=== PATIENT | male | born 1940 | race Caucasian/White ===

== ENCOUNTER 2017-05-26 03:08 | Observation (INO) | payer MEDICARE ==
[2017-05-26] VITALS (9 sets, daily range): BP systolic 112–161; BP diastolic 74–100; PULSE 77–116; RESP 16–18; TEMP 95.8–98.1; O2SAT 93–98
[~2017-05-26] VITALS: Ht 190.5 cm; Wt 93.0 kg
[~2017-05-26 03:08] MED LIST: AMBI5TAB PO; AMLO5TAB96 PO; AVOD0.5C PO; FISH1000 PO; TAB-TAB PO; TAMS0.4C67 PO; VYTO10TA35 PO
[2017-05-26] MEDS ORDERED: IRBE75TA24 PO (03:28)
[2017-05-26] MEDS ORDERED: AMLO5 PO (03:28)
[2017-05-26] MEDS ORDERED: ASPI-516 PO (03:30)
[2017-05-26] MEDS ORDERED: PANT20TA2 PO (03:35)
[2017-05-26] MEDS ORDERED: SODIUM CHLOR 0.9% 1000 ML INJ 1,000 ML IV SCH (03:35)
[2017-05-26] MEDS ORDERED: PANTOPRAZOLE INJ 80 MG in SODIUM CHLORIDE 0.9% INJ 35 ML IV ONE (03:35)
[2017-05-26] MEDS ORDERED: ROSU10 PO (03:35)
[2017-05-26] MEDS ORDERED: TEST1INJ3 IM (03:37)
[2017-05-26] MEDS ORDERED: RAPA4CAP PO (03:37)
[2017-05-26] MEDS ORDERED: AMBI5TAB PO (03:38)
[2017-05-26] MEDS ORDERED: MULTTAB67 PO (03:38)
[2017-05-26] MEDS ORDERED: VITA1000 PO (03:39)
[2017-05-26] MEDS ORDERED: FISHCAP4 PO (03:39)
[2017-05-26] MEDS ORDERED: VITA100T65 PO (03:39)
[2017-05-26] MEDS ORDERED: SODIUM CHLORIDE 0.9% FLUSH 10 ML FLUSH IVF PRN (03:45)
[2017-05-26 04:21] LABS: AUTOMATED NEUTROPHIL # 3.8 TH/MM3 (1.8-7.7); BASOPHIL % 0.5 % (0.0-2.0); EOSINOPHIL # 0.1 TH/MM3 (0-0.4); EOSINOPHIL % 1.2 % (0.0-4.0); HEMATOCRIT 39.3 % (39.0-51.0); HEMO FLAGS DIFF FINAL; LYMPH % 35.3 % (9.0-44.0); LYMPHOCYTE # 2.6 TH/MM3 (1.0-4.8); MEAN CELL VOLUME 93.7 FL (80.0-100.0); MEAN CORPUSCULAR HGB CONC 33.1 % (32.0-36.0); MONO % 11.6 % (0.0-8.0); NEUT % 51.4 % (16.0-70.0); PLATELET COUNT 190 TH/MM3 (150-450); RED BLOOD COUNT 4.19 MIL/MM3 (4.50-5.90); RED CELL DISTRIBUTION WIDTH 13.7 % (11.6-17.2); WHITE BLOOD COUNT 7.4 TH/MM3 (4.0-11.0)
[2017-05-26 04:31] LABS: APTT (PATIENT) 24.6 SEC (24.3-30.1); PROTHROMBIN TIME - PATIENT 10.7 SEC (9.8-11.6)
[2017-05-26 04:38] LABS: ALKALINE PHOSPHATASE 45 U/L (45-117); TOTAL BILIRUBIN ADULT 0.2 MG/DL (0.2-1.0)
[2017-05-26] MEDS: PANTOPRAZOLE INJ 80 MG in SODIUM CHLORIDE 0.9% INJ 100 ML IV SCH ×2 (04:40→15:09)
[2017-05-26 04:46] LABS: ALT (GPT) 29 U/L (12-78); ANION GAP 9 MEQ/L (5-15); AST (GOT) 23 U/L (15-37); BICARBONATE 24.8 MEQ/L (21.0-32.0); BLOOD UREA NITROGEN 21 MG/DL (7-18); CHLORIDE 108 MEQ/L (98-107); GLOMERULAR FILTRATION RATE 42 ML/MIN (>89); POTASSIUM 4.3 MEQ/L (3.5-5.1); SODIUM (NA) 142 MEQ/L (136-145)
--- NOTE | 2017-05-26 05:04 | PD ---
HPI Chief Complaint: Bleeding Time Seen by Provider: 03:25 Travel History International Travel<30 days: Yes Contact w/Intl Traveler<30days: Yes Name of Country Traveled to: [facility] Traveled to known affect area: Yes History of Present Illness HPI Patient is a 77-year-old male who comes in due to bleeding from his rectum. He says it started about 6 PM in the afternoon when he had a loose bowel movement. He says it was mostly bright red blood. He says he has had several more episodes of this since then. He says he feels a little lightheaded. He denies any abdominal pain. He denies nausea or vomiting. He says this did happen about 3 years ago while he was in [place]. He had a colonoscopy when he returned and he says this was normal. He denies chest pain or shortness of breath. He denies palpitations. 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17) Social History Alcohol Use: No Tobacco Use: No Substance Use: No Allergies-Medications (Allergen,Severity, Reaction): Coded Allergies: Sulfa (Sulfonamide Antibiotics) (Unverified Allergy, Unknown, 05/26/17) Reported Meds & Prescriptions Reported Meds & Active Scripts Active Reported Fish Oil + D3 (Fish Oil-Cholecalciferol) 1,200-1,000 Mg-Unit Cap 1 Cap PO DAILY Vitamin E 100 Unit Tab 100 Units PO DAILY Vitamin D-1000 (Cholecalciferol) 1,000 Unit Tab 1,000 Units PO DAILY Multiple Vitamin 1 Tab 1 Tab PO DAILY Ambien (Zolpidem Tartrate) 5 Mg Tab 5 Mg PO HS PRN Rapaflo (Silodosin) 4 Mg Cap 4 Mg PO DAILY Crestor (Rosuvastatin Calcium) 10 Mg Tab 10 Mg PO DAILY Pantoprazole (Pantoprazole Sodium) 20 Mg Tab 20 Mg PO DAILY Aspirin 81 Mg Chew 81 Mg PO DAILY Norvasc (Amlodipine Besylate) 5 Mg Tab 5 Mg PO DAILY Avapro (Irbesartan) 75 Mg Tab 75 Mg PO DAILY Review of Systems Except as stated in HPI: all other systems reviewed are Neg General / Constitutional: No: Fever, Chills HENT: Positive: Lightheadedness, No: Headaches Cardiovascular: No: Chest Pain or Discomfort, Palpitations Respiratory: No: Shortness of Breath Gastrointestinal: Positive: Diarrhea, No: Nausea, Vomiting, Abdominal Pain Genitourinary: No: Dysuria Musculoskeletal: No: Myalgias, Edema Skin: No Rash, No Change in Pigmentation Neurologic: Positive: Dizziness, No: Weakness Physical Exam Narrative GENERAL: Awake and alert, in no acute distress. SKIN: Focused skin assessment warm/dry. HEAD: Atraumatic. Normocephalic. EYES: Pupils equal and round. No scleral icterus. No conjunctival pallor. ENT: Mucous membranes pink and moist. NECK: Trachea midline. No JVD. CARDIOVASCULAR: Regular rate and rhythm. No murmur appreciated. RESPIRATORY: No accessory muscle use. Clear to auscultation. Breath sounds equal bilaterally. GASTROINTESTINAL: Abdomen soft, non-tender, nondistended. RECTAL: Exam performed in the presence of the nurse. There are no masses or lesions. BRBPR MUSCULOSKELETAL: No obvious deformities. No clubbing. No cyanosis. No edema. NEUROLOGICAL: Awake and alert. No obvious cranial nerve deficits. Motor grossly within normal limits. Normal speech. PSYCHIATRIC: Appropriate mood and affect; insight and judgment normal. Data Data Last Documented VS Vital Signs Date Time Temp Pulse Resp B/P (MAP) Pulse Ox O2 Delivery O2 Flow Rate FiO2 05/26/17 04:57 98 Room Air 05/26/17 04:57 81 18 05/26/17 03:11 97.9 Orders Orders Complete Blood Count With Diff (05/26/17 03:35) Comprehensive Metabolic Panel (05/26/17 03:35) Prothrombin Time / Inr (Pt) (05/26/17 03:35) Act Partial Throm Time (Ptt) (05/26/17 03:35) Type And Screen (05/26/17 03:35) Ecg Monitoring (05/26/17 03:35) Iv Access Insert/Monitor (05/26/17 03:35) Oximetry (05/26/17 03:35) Sodium Chlor 0.9% 1000 Ml Inj (Ns 1000 M (05/26/17 03:35) Sodium Chloride 0.9% Flush (Ns Flush) (05/26/17 03:45) Sodium Chloride 0.9... W/Pantoprazole In (05/26/17 03:35) Sodium Chloride 0.9... W/Pantoprazole In (05/26/17 03:35) C Diff Toxin Pcr (05/26/17 03:35) Admit Order (Ed Use Only) (05/26/17 ) Labs Laboratory Tests Test 05/26/17 04:05 White Blood Count 7.4 TH/MM3 Red Blood Count 4.19 MIL/MM3 Hemoglobin 13.0 GM/DL Hematocrit 39.3 % Mean Corpuscular Volume 93.7 FL Mean Corpuscular Hemoglobin 31.0 PG Mean Corpuscular Hemoglobin Concent 33.1 % Red Cell Distribution Width 13.7 % Platelet Count 190 TH/MM3 Mean Platelet Volume 9.0 FL Neutrophils (%) (Auto) 51.4 % Lymphocytes (%) (Auto) 35.3 % Monocytes (%) (Auto) 11.6 % Eosinophils (%) (Auto) 1.2 % Basophils (%) (Auto) 0.5 % Neutrophils # (Auto) 3.8 TH/MM3 Lymphocytes # (Auto) 2.6 TH/MM3 Monocytes # (Auto) 0.9 TH/MM3 Eosinophils # (Auto) 0.1 TH/MM3 Basophils # (Auto) 0.0 TH/MM3 CBC Comment DIFF FINAL Differential Comment Prothrombin Time 10.7 SEC Prothromb Time International Ratio 1.0 RATIO Activated Partial Thromboplast Time 24.6 SEC Blood Urea Nitrogen 21 MG/DL Creatinine 1.59 MG/DL Random Glucose 117 MG/DL Total Protein 6.3 GM/DL Albumin 3.3 GM/DL Calcium Level 8.4 MG/DL Alkaline Phosphatase 45 U/L Aspartate Amino Transf (AST/SGOT) 23 U/L Alanine Aminotransferase (ALT/SGPT) 29 U/L Total Bilirubin 0.2 MG/DL Sodium Level 142 MEQ/L Potassium Level 4.3 MEQ/L Chloride Level 108 MEQ/L Carbon Dioxide Level 24.8 MEQ/L Anion Gap 9 MEQ/L Estimat Glomerular Filtration Rate 42 ML/MIN MDM Medical Decision Making Medical Screen Exam Complete: Yes Emergency Medical Condition: Yes Medical Record Reviewed: Yes Differential Diagnosis GI bleed versus diverticulosis versus hemorrhoidal versus anemia Narrative Course Patient is a 77-year-old male who comes in complaining of rectal bleeding. Exam shows bright red blood per rectum. IV established, labs sent. Labs show hemoglobin of 13. Creatinine is elevated, but is similar to previous numbers. Patient given IV fluids. Given Protonix. He'll be placed in observation for further management. He does report taking amoxicillin about a week ago. His stool sent to test for C. difficile. Diagnosis Primary Impression: GI bleed Qualified Codes: K92.2 - Gastrointestinal hemorrhage, unspecified Admitting Information Admitting Physician Requests: Observation Camille Sabillon MD May 26, 2017 05:04
[2017-05-26] MEDS ORDERED: LACTULOSE SYRUP 20 GM/30 ML CUP PO PRN (05:15)
[2017-05-26] MEDS ORDERED: ONDANSETRON HCL 4 MG/2 ML VIAL IVP PRN (05:15)
[2017-05-26] MEDS ORDERED: MAGNESIUM HYDROXIDE SUSP 30 ML CUP PO PRN (05:15)
[2017-05-26] MEDS ORDERED: BISACODYL 10 MG SUPP RECTAL PRN (05:15)
[2017-05-26] MEDS ORDERED: ACETAMINOPHEN 325 MG TAB PO PRN (05:15)
[2017-05-26] MEDS ORDERED: ACETAMINOPHEN/HYDROcodone 325 MG/5 MG TAB PO PRN (05:15)
[2017-05-26] MEDS ORDERED: ZOLPIDEM TARTRATE 5 MG TAB PO PRN (05:15)
[2017-05-26] MEDS ORDERED: SODIUM CHLORIDE 0.9% FLUSH 10 ML FLUSH IV FLUSH PRN (05:15)
[2017-05-26] MEDS ORDERED: SENNOSIDES 8.6 MG TAB PO PRN (05:15)
--- NOTE | 2017-05-26 05:18 | HHI.HP ---
[facility] Sussy Mary MD Admission Diagnosis GI bleed Diagnoses: (1) GI bleed Diagnosis: Principal (2) HTN (hypertension) Diagnosis: Principal (3) Renal insufficiency Diagnosis: Principal Travel History International Travel<30 Days: Yes Contact w/Intl Traveler <30 Da: Yes Name of Country Traveled to: [facility] Traveled to Known Affected Are: Yes History of Present Illness This is a 77-year-old male with PMH of HTN who presents ER with complaints of pain starting yesterday afternoon. Reports sudden onset of abdominal pain followed by loose bowel movement at which time he noted bright red blood. H/o similar symptoms several years ago, s/p Colonoscopy by Dr. Waite at that time w / normal findings. On ASA at home. On arrival, BP 161/100, HR 101, O2 sat 98% on RA, Afebrile. CBC unremarkable. Hemoglobin 13.0, previously 12.9 on . Creatinine 1.59, previously 1.62 on 05/20/11. Review of Systems Except as stated in HPI: all other systems reviewed are Neg ROS: 14 point review of systems otherwise negative. Past Family Social History Past Medical History PMH: HTN Past Surgical History PAST SURGICAL HISTORY: Deviated Septum Allergies: Coded Allergies: Sulfa (Sulfonamide Antibiotics) (Unverified Allergy, Unknown, 05/26/17) Family History PAST FAMILY HISTORY: Reviewed. No h/o DM or CAD Social History PAST SOCIAL HISTORY: Negative for alcohol, tobacco or drugs. Physical Exam Vital Signs Vital Signs Date Time Temp Pulse Resp B/P (MAP) Pulse Ox O2 Delivery O2 Flow Rate FiO2 05/26/17 04:57 98 Room Air 05/26/17 04:57 81 18 148/93 (111) 98 Room Air 05/26/17 03:31 101 18 161/100 (120) 95 Room Air 05/26/17 03:11 97.9 116 16 134/89 (104) 98 Room Air Physical Exam PE: GENERAL: Very pleasant elderly white male in no acute distress. HEENT: PERRLA, EOMI. No scleral icterus or conjunctival pallor. No lid lag or facial droop. CARDIOVASCULAR: Regular rate and rhythm. No obvious murmurs to auscultation. No chest tenderness to palpation. RESPIRATORY: No obvious rhonchi or wheezing. Clear to auscultation. Breath sounds equal bilaterally. GASTROINTESTINAL: Abdomen soft, non-tender, nondistended. BS normal. MUSCULOSKELETAL: Extremities without clubbing, cyanosis, or edema. No obvious deformities. NEUROLOGICAL: Awake, alert and oriented x4. No focal neurologic deficits. Moving both upper and lower extremities spontaneously. Laboratory Laboratory Tests Test 05/26/17 04:05 White Blood Count 7.4 Red Blood Count 4.19 Hemoglobin 13.0 Hematocrit 39.3 Mean Corpuscular Volume 93.7 Mean Corpuscular Hemoglobin 31.0 Mean Corpuscular Hemoglobin Concent 33.1 Red Cell Distribution Width 13.7 Platelet Count 190 Mean Platelet Volume 9.0 Neutrophils (%) (Auto) 51.4 Lymphocytes (%) (Auto) 35.3 Monocytes (%) (Auto) 11.6 Eosinophils (%) (Auto) 1.2 Basophils (%) (Auto) 0.5 Neutrophils # (Auto) 3.8 Lymphocytes # (Auto) 2.6 Monocytes # (Auto) 0.9 Eosinophils # (Auto) 0.1 Basophils # (Auto) 0.0 CBC Comment DIFF FINAL Differential Comment Prothrombin Time 10.7 Prothromb Time International Ratio 1.0 Activated Partial Thromboplast Time 24.6 Blood Urea Nitrogen 21 Creatinine 1.59 Random Glucose 117 Total Protein 6.3 Albumin 3.3 Calcium Level 8.4 Alkaline Phosphatase 45 Aspartate Amino Transf (AST/SGOT) 23 Alanine Aminotransferase (ALT/SGPT) 29 Total Bilirubin 0.2 Sodium Level 142 Potassium Level 4.3 Chloride Level 108 Carbon Dioxide Level 24.8 Anion Gap 9 Estimat Glomerular Filtration Rate 42 Result Diagram: 05/26/1740405/26/17404 Caprini VTE Risk Assessment Caprini VTE Risk Assessment: No/Low Risk (score <= 1) VTE Pharm Contraindication: Active bleeding Caprini Risk Assessment Model Point Value = 1 Point Value = 2 Point Value = 3 Point Value = 5 Age 41-60 Minor surgery BMI > 25 kg/m2 Swollen legs Varicose veins or History of unexplained or recurrent spontaneous Oral contraceptives or hormone replacement Sepsis (< 1 month) Serious lung disease, including pneumonia (< 1 month) Abnormal pulmonary function Acute myocardial infarction Congestive heart failure (< 1 month) History of inflammatory bowel disease Medical patient at bed rest Age 61-74 Arthroscopic surgery Major open surgery (> 45 min) Laparoscopic surgery (> 45 min) Malignancy Confined to bed (> 72 hours) Immobilizing plaster cast Central venous access Age >= 75 History of VTE Family history of VTE Factor V Leiden Prothrombin [id number] Lupus anticoagulant Anticardiolipin antibodies Elevated serum homocysteine Heparin-induced thrombocytopenia Other congenital or acquired thrombophilia Stroke (< 1 month) Elective arthroplasty Hip, pelvis, or leg fracture Acute spinal cord injury (< 1 month) Prophylaxis Regimen Total Risk Factor Score Risk Level Prophylaxis Regimen 0-1 Low Early ambulation 2 Moderate Order ONE of the following: *Sequential Compression Device (SCD) *Heparin 5000 units SQ BID 3-4 Higher Order ONE of the following medications: *Heparin 5000 units SQ TID *Enoxaparin/Lovenox 40 mg SQ daily (WT < 150 kg, CrCl > 30 mL/min) *Enoxaparin/Lovenox 30 mg SQ daily (WT < 150 kg, CrCl > 10-29 mL/min) *Enoxaparin/Lovenox 30 mg SQ BID (WT < 150 kg, CrCl > 30 mL/min) AND/OR *Sequential Compression Device (SCD) 5 or more Highest Order ONE of the following medications: *Heparin 5000 units SQ TID (Preferred with Epidurals) *Enoxaparin/Lovenox 40 mg SQ daily (WT < 150 kg, CrCl > 30 mL/min) *Enoxaparin/Lovenox 30 mg SQ daily (WT < 150 kg, CrCl > 10-29 mL/min) *Enoxaparin/Lovenox 30 mg SQ BID (WT < 150 kg, CrCl > 30 mL/min) AND *Sequential Compression Device (SCD) Assessment and Plan Problem List: (1) GI bleed ICD Code: K92.2 - Gastrointestinal hemorrhage, unspecified Status: Acute (2) Renal insufficiency ICD Code: N28.9 - Disorder of kidney and ureter, unspecified (3) HTN (hypertension) ICD Code: I10 - Essential (primary) hypertension Assessment and Plan A/P: 1. GI Bleed: acute onset of rectal bleeding, h/o similar symptoms several years ago s/p normal Colonoscopy by Dr. Waite at that time. Vitals stable. Hgb 13.0, previously 12.9 on 05/19/11. Monitor Hgb/Hct. Hold ASA. Consult GI for further evaluation. 2. HTN: BP 160's on arrival, currently 148/93, HR 81. Will monitor. 3. Renal Insufficiency: Chronic. Creatinine 1.59, previously 1.62 on . IVF for hydration, repeat labs in am. 4. DVT Prophylaxis: Pharmacologic contraindication in light of GI bleed. 5. Social work for d/c planning as needed. 6. Case discussed w/ ER physician at length. Problem Qualifiers (1) GI bleed: Qualified Codes: K92.2 - Gastrointestinal hemorrhage, unspecified Delia Alcaraz MD May 26, 2017 05:18
[2017-05-26 05:22] LABS: C. DIFF EPI 027 PRESUMPTIVE POSITIVE (NEGATIVE)
[2017-05-26] MEDS: MULTIVITAMIN TAB PO SCH ×2 (05:30→09:00)
[2017-05-26] MEDS ORDERED: MORPHINE SULFATE 2 MG/ML INJ IV PUSH PRN (06:00)
[2017-05-26] MEDS: SODIUM CHLOR 0.9% 1000 ML INJ 1,000 ML IV SCH ×2 (07:53→23:28)
--- NOTE | 2017-05-26 08:57 | HHI.PR ---
Subjective Remarks Follow up for GI bleeding. The patient reports another episode of bright red rectal bleeding overnight. He states his stools are mostly bloody, mixed with flatus, and small amounts of loose stools. He did recently complete a 5day course of amoxicillin, completed last 05/22. He denies ever having any abdominal pain. Denies any nausea/vomiting. He states he had a colonoscopy [address] Waite that was reportedly unremarkable. Objective Vitals Vital Signs Date Time Temp Pulse Resp B/P (MAP) Pulse Ox O2 Delivery O2 Flow Rate FiO2 05/26/17 07:40 97.9 84 18 126/78 (94) 94 05/26/17 06:38 98.1 84 18 112/74 (87) 97 05/26/17 04:57 98 Room Air 05/26/17 04:57 81 18 148/93 (111) 98 Room Air 05/26/17 03:31 101 18 161/100 (120) 95 Room Air 05/26/17 03:11 97.9 116 16 134/89 (104) 98 Room Air I/O 05/25/17 05/25/17 05/25/17 05/26/17 05/26/17 05/26/17 07:00 15:00 23:00 07:00 15:00 23:00 Intake Total 2035 ml Output Total 60 ml Balance 1975 ml Intake IV Total 2035 ml Output Stool Total 60 ml # Bowel Movements 1 Result Diagram: 05/26/1740405/26/17 0405 Objective Remarks GENERAL: Well-nourished, well-developed pleasant male patient in [facility]. SKIN: Warm and dry. No rash. HEENT: Normocephalic. Atraumatic.Pupils equal and round.Mucous membranes pink and moist. NECK: Supple. Trachea midline. CARDIOVASCULAR: Regular rate and rhythm. S1, S2 noted. No murmur appreciated. RESPIRATORY: No accessory muscle use. Clear to auscultation. Breath sounds equal bilaterally. GASTROINTESTINAL: Abdomen soft, non-tender, nondistended. Normoactive bowel sounds x4. MUSCULOSKELETAL: No obvious deformities. Extremities without clubbing, cyanosis , or edema. NEUROLOGICAL: Awake and alert. No obvious cranial nerve deficits. Motor grossly within normal limits. Normal speech. PSYCHIATRIC: Appropriate mood and affect; insight and judgment normal. Medications and IVs Current Medications Medications (Trade) Dose Ordered Sig/Juan Route Start Time Stop Time Status Last Admin Pantoprazole Sodium 80 mg/ Sodium Chloride 100 ml @ 10 mls/hr Q10H IV 05/26/17 03:35 05/26/17 04:40 Sodium Chloride 1,000 ml @ 100 mls/hr Q10H IV 05/26/17 05:05 05/26/17 07:53 (NS Flush) 2 ml UNSCH PRN IV FLUSH 05/26/17 05:15 (NS Flush) 2 ml BID IV FLUSH 05/26/17 09:00 (Zofran Inj) 4 mg Q6H PRN IVP 05/26/17 05:15 (Tylenol) 650 mg Q6H PRN PO 05/26/17 05:15 ([place] 5-325 Mg) 1 tab Q4H PRN PO 05/26/17 05:15 (Morphine Inj) 2 mg Q3H PRN IV PUSH 05/26/17 06:00 (Lydia-Colace) 1 tab BID PO 05/26/17 09:00 (Milk Of Magnesia Liq) 30 ml Q12H PRN PO 05/26/17 05:15 (Senokot) 17.2 mg Q12H PRN PO 05/26/17 05:15 (Dulcolax Supp) 10 mg DAILY PRN RECTAL 05/26/17 05:15 (Lactulose Liq) 30 ml DAILY PRN PO 05/26/17 05:15 (Norvasc) 5 mg DAILY PO 05/26/17 09:00 (Protonix) 20 mg DAILY PO 05/26/17 09:00 (Ambien) 5 mg HS PRN PO 05/26/17 05:15 (Theragran) 1 tab DAILY PO 05/26/17 05:30 (Lipitor) 20 mg DAILY PO 05/26/17 09:00 (Flomax) 0.4 mg DAILY PO 05/26/17 09:00 A/P Problem List: (1) GI bleed ICD Code: K92.2 - Gastrointestinal hemorrhage, unspecified Status: Acute (2) Renal insufficiency ICD Code: N28.9 - Disorder of kidney and ureter, unspecified (3) HTN (hypertension) ICD Code: I10 - Essential (primary) hypertension Assessment and Plan 77-year-old male with PMH of HTN who presents with complaints of rectal bleeding x1day GI Bleed: acute onset of rectal bleeding, h/o similar symptoms 2 years ago s/p normal Colonoscopy by Dr. Waite at that time. Vitals stable. Hgb 13.0, previously 12.9 on 05/19/11. Monitor Hgb/Hct. Hold ASA. Consult GI for further evaluation. C.Difficile Diarrhea: Discussed with lab, Cdiff PCR positive. Start on Flagyl 500mg q8h [id number] and Lactinex tid. HTN: BP 160's on arrival, currently 148/93, HR 81. Will monitor. Chronic Renal Insufficiency: Creatinine 1.59, previously 1.62 on 05/20/11. Continue IVF for hydration, repeat labs in am. DVT Prophylaxis: Pharmacologic contraindication in light of GI bleed. Problem Qualifiers (1) GI bleed: Qualified Codes: K92.2 - Gastrointestinal hemorrhage, unspecified Candi Mireles PA-C May 26, 2017 08:57
[2017-05-26] MEDS: DOCUSATE SODIUM 50 MG/SENNA 8.6 MG TAB PO SCH ×2 (09:00→20:27)
[2017-05-26] MEDS: PANTOPRAZOLE SOD 20 MG DELAYED RELEASE TAB PO SCH (09:00)
[2017-05-26] MEDS: TAMSULOSIN HCL 0.4 MG CAP PO SCH (09:00)
[2017-05-26] MEDS: SODIUM CHLORIDE 0.9% FLUSH 10 ML FLUSH IV FLUSH SCH ×2 (09:00→20:29)
[2017-05-26] MEDS: amLODIPine BESYLATE 5 MG TAB PO SCH (09:00)
[2017-05-26] MEDS: ATORVASTATIN 20 MG TAB PO SCH (09:00)
[2017-05-26] MEDS ORDERED: CYCL7.5E EACH EYE (09:13)
[2017-05-26] MEDS: LACTOBACILLUS ACIDOPHILUS TAB PO SCH ×2 (12:29→19:45)
[2017-05-26] MEDS: metroNIDAZOLE 500 MG TAB PO SCH ×2 (12:29→20:27)
--- NOTE | 2017-05-26 18:10 | MB ---
cc: IRVIN NICKERSON M.D. DATE OF CONSULTATION 05/26/17 DATE OF 1940 REASON FOR GI CONSULTATION Evaluation of rectal bleeding. HISTORY OF PRESENT ILLNESS This is a 77-year-old male who presented to the emergency room with rectal bleeding, sudden onset. He had some lower abdominal cramping discomfort and then he noticed bright red blood into the commode. He presented to the emergency room. He had a similar episode 2014 while he was traveling in [place]. The patient does travel extensively, he recently traveled from [facility]. Prior to going there he amoxicillin for 10 days. He denies any significant diarrhea. He has had no fever, chills. No vomiting. He had one loose stool that was positive for this C. Difficile PCR DNA while here at the hospital. He was started on Flagyl therapy. He had a colonoscopy by Dr. Waite 2014 which was benign. He had diverticular disease noted mostly in the transverse colon. He had one hyperplastic polyp removed. He had grade 1 internal hemorrhoids. We discussed the differential diagnosis of his rectal bleeding which could be related to hemorrhoidal disease, ischemic colitis or diverticular disease. The finding of the C. Difficile PCR positive in his stools maybe early C. Diff without the full expression of clinical disease or symptoms. Nonetheless, he was started on Flagyl therapy. We discussed that C-difficile usually does not give rectal bleeding, bright red blood as he describes and it may be due to the other etiologies mentioned above. We discussed evaluating him with a sigmoidoscopy exam at some point. This can be done tomorrow even as an outpatient. The patient preferred to have this done while here in the hospital. We will go ahead and arrange that and give him a short prep with magnesium citrate. The patient's hemoglobin has been in the 13 range. His white count is normal. The vital signs have been stable. He has not had a CT scan of the performed. His liver enzymes are normal. The patient denies any NSAID use. He does take a baby aspirin. PAST MEDICAL HISTORY Includes hypertension. Other medical history includes mild renal insufficiency. ALLERGIES SULFA. FAMILY HISTORY Negative from a GI standpoint. SOCIAL HISTORY Negative for alcohol or illicit drug use or smoking. REVIEW OF SYSTEMS 12-point review of systems as stated in the HPI. CURRENT MEDICATIONS 1. Lactobacillus. 2. Metronidazole. 3. Flomax. 4. Atorvastatin. 5. Pantoprazole. 6. Amlodipine. 7. Ondansetron. 8. Lactulose p.r.n. PHYSICAL EXAMINATION GENERAL: A well-developed male, alert and oriented x3 in no distress. VITAL SIGNS: Stable. He is afebrile. HEENT: Exam is unremarkable. NECK: Supple. CARDIAC EXAMINATION: S1-S2, regular rhythm. CHEST: Chest is clear. ABDOMEN: Soft, nontender, benign. No mass or organomegaly. EXTREMITIES: Without clubbing, cyanosis, edema. RECTAL: Deferred. IMPRESSION 1. Rectal bleeding: The etiology undefined but the differential diagnosis were discussed as above including colitis, ischemic colitis, diverticular disease, hemorrhoidal disease. 2. C. Difficile positive PCR: This may be related to the patient's recent amoxicillin therapy that he took when he went to [facility]. The patient denies significant diarrhea, however. DISCUSSION AND PLAN We have discussed the case in detail with the patient and his . We will proceed with flexible sigmoidoscopy exam tomorrow at some time. The procedure risks and benefits were discussed including risks of bleeding, sepsis, perforation, risk of anesthesia. The patient will be prepped with magnesium citrate tonight. Continue IV hydration. Agree with metronidazole therapy 500 milligrams p.o. t.i.d. for presumed C. Diff positive stools. Further recommendations pending. Thank you kindly for this consultation. MD ARANZA Bergeron/RUTH /5:19 PM /5:49 PM
[2017-05-26] MEDS ORDERED: PEG (High)/E-LYTE SOLN 4000 ML BTL PO SCH (18:15)
[2017-05-27 04:10] VITALS: BP 115/71; PULSE 81; RESP 17; TEMP 96.8; O2SAT 95
[2017-05-27] MEDS: PANTOPRAZOLE INJ 80 MG in SODIUM CHLORIDE 0.9% INJ 100 ML IV SCH (04:25)
[2017-05-27] MEDS: metroNIDAZOLE 500 MG TAB PO SCH ×2 (04:25→13:41)
[2017-05-27] MEDS ORDERED: SODIUM CHLORID 0.9% 500 ML IV PRN (04:30)
[2017-05-27] MEDS ORDERED: POVIDONE IODINE 5% (ANTISEPSIS KIT) 4 APPLICATIONS EACH NARE PRN (04:30)
[2017-05-27] MEDS ORDERED: CHLORHEXIDINE GLUCONATE 2 % 1 PACK (2 CLOTHS) TOPICAL PRN (04:30)
[2017-05-27] MEDS ORDERED: LACTATED RINGER'S 1000 ML IV PRN (04:30)
[2017-05-27 08:44] VITALS: BP 128/75; PULSE 73; RESP 24; TEMP 98; O2SAT 95
[2017-05-27] MEDS: SODIUM CHLOR 0.9% 1000 ML INJ 1,000 ML IV SCH ×2 (09:50→13:41)
[2017-05-27] MEDS: MULTIVITAMIN TAB PO SCH (09:51)
[2017-05-27] MEDS: PANTOPRAZOLE SOD 20 MG DELAYED RELEASE TAB PO SCH (09:51)
[2017-05-27] MEDS: ATORVASTATIN 20 MG TAB PO SCH (09:51)
[2017-05-27] MEDS: amLODIPine BESYLATE 5 MG TAB PO SCH (09:52)
[2017-05-27] MEDS: DOCUSATE SODIUM 50 MG/SENNA 8.6 MG TAB PO SCH (09:52)
[2017-05-27] MEDS: TAMSULOSIN HCL 0.4 MG CAP PO SCH (09:52)
[2017-05-27] MEDS: SODIUM CHLORIDE 0.9% FLUSH 10 ML FLUSH IV FLUSH SCH (09:52)
[2017-05-27] MEDS: LACTOBACILLUS ACIDOPHILUS TAB PO SCH ×2 (09:53→13:41)
--- NOTE | 2017-05-27 10:49 | HHI.PR ---
Subjective Remarks Follow up for GI/rectal bleeding. The patient reports multiple bowel movements overnight after drinking gallon of GoLYTELY bowel prep. He states initially he did have bright red blood in the stool however it has turned clear this morning. He continues to deny any abdominal pain/nausea/vomiting. Denies fevers/ chills. He wants to go home later today after sigmoidoscopy. Explained importance of continuing antibiotics, probiotics, and staying well hydrated. Also instructed to return to the ED or call coffee weigher if he continues to have more than 3-5 loose stools a day, patient verbalizes understanding. Objective Vitals Vital Signs Date Time Temp Pulse Resp B/P (MAP) Pulse Ox O2 Delivery O2 Flow Rate FiO2 05/27/17 08:44 98.0 73 24 128/75 (92) 95 05/27/17 04:10 96.8 81 17 115/71 (86) 95 05/26/17 23:24 96.2 82 18 130/80 (97) 94 05/26/17 21:08 95.8 78 18 141/81 (101) 94 05/26/17 16:00 97.6 77 18 129/75 (93) 96 05/26/17 11:27 97.8 82 18 144/76 (98) 93 I/O 05/26/17 05/26/17 05/26/17 05/27/17 05/27/17 05/27/17 07:00 15:00 23:00 07:00 15:00 23:00 Intake Total 2035 ml 240 ml Output Total 60 ml 300 ml Balance 1975 ml 240 ml -300 ml Intake Oral 240 ml IV Total 2035 ml Output Urine Total 300 ml Stool Total 60 ml # Voids 10 # Bowel Movements 1 10 1 Result Diagram: 05/26/1740405/26/175 Objective Remarks GENERAL: Well-nourished, well-developed pleasant male patient in NAD. SKIN: Warm and dry. No rash. HEENT: Normocephalic. Atraumatic.Pupils equal and round.Mucous membranes pink and moist. NECK: Supple. Trachea midline. CARDIOVASCULAR: Regular rate and rhythm. S1, S2 noted. No murmur appreciated. RESPIRATORY: No accessory muscle use. Clear to auscultation. Breath sounds equal bilaterally. GASTROINTESTINAL: Abdomen soft, non-tender, nondistended. Normoactive bowel sounds x4. MUSCULOSKELETAL: No obvious deformities. Extremities without clubbing, cyanosis , or edema. NEUROLOGICAL: Awake and alert. No obvious cranial nerve deficits. Motor grossly within normal limits. Normal speech. PSYCHIATRIC: Appropriate mood and affect; insight and judgment normal. Medications and IVs Current Medications Medications (Trade) Dose Ordered Sig/Juan Route Start Time Stop Time Status Last Admin Pantoprazole Sodium 80 mg/ Sodium Chloride 100 ml @ 10 mls/hr Q10H IV 05/26/17 03:35 05/27/17 04:25 Sodium Chloride 1,000 ml @ 100 mls/hr Q10H IV 05/26/17 05:05 05/27/17 09:50 (NS Flush) 2 ml UNSCH PRN IV FLUSH 05/26/17 05:15 (NS Flush) 2 ml BID IV FLUSH 05/26/17 09:00 (Zofran Inj) 4 mg Q6H PRN IVP 05/26/17 05:15 (Tylenol) 650 mg Q6H PRN PO 05/26/17 05:15 ([place] 5-325 Mg) 1 tab Q4H PRN PO 05/26/17 05:15 (Morphine Inj) 2 mg Q3H PRN IV PUSH 05/26/17 06:00 (Lydia-Colace) 1 tab BID PO 05/26/17 09:00 05/26/17 20:27 (Milk Of Magnesia Liq) 30 ml Q12H PRN PO 05/26/17 05:15 (Senokot) 17.2 mg Q12H PRN PO 05/26/17 05:15 (Dulcolax Supp) 10 mg DAILY PRN RECTAL 05/26/17 05:15 (Lactulose Liq) 30 ml DAILY PRN PO 05/26/17 05:15 Future Hold (Norvasc) 5 mg DAILY PO 05/26/17 09:00 05/27/17 09:52 (Protonix) 20 mg DAILY PO 05/26/17 09:00 05/27/17 09:51 (Ambien) 5 mg HS PRN PO 05/26/17 05:15 (Theragran) 1 tab DAILY PO 05/26/17 05:30 05/27/17 09:51 (Lipitor) 20 mg DAILY PO 05/26/17 09:00 05/27/17 09:51 (Flomax) 0.4 mg DAILY PO 05/26/17 09:00 05/27/17 09:52 (Flagyl) 500 mg Q8H PO 05/26/17 12:00 06/09/17 11:59 05/27/17 04:25 (Lactinex) 1 tab TID PO 05/26/17 13:00 05/26/17 12:29 Lactated Ringer's 1,000 ml @ 30 mls/hr Q24H PRN IV 05/27/17 04:30 05/30/17 04:29 Sodium Chloride 500 ml @ 30 mls/hr [id number] PRN IV 05/27/17 04:30 05/30/17 04:29 (Betadine 5% Antisepsis Kit) 1 applic PRIVACY ANALYST PRN EACH NARE 05/27/17 04:30 05/30/17 04:29 (Chlorhexidine 2% Cloth) 3 pack PRIVACY ANALYST PRN TOPICAL 05/27/17 04:30 05/30/17 04:29 A/P Problem List: (1) GI bleed ICD Code: K92.2 - Gastrointestinal hemorrhage, unspecified Status: Acute (2) Renal insufficiency ICD Code: N28.9 - Disorder of kidney and ureter, unspecified (3) HTN (hypertension) ICD Code: I10 - Essential (primary) hypertension Assessment and Plan 77-year-old male with PMH of HTN who presents with complaints of rectal bleeding x1day GI Bleed: acute onset of rectal bleeding, h/o similar symptoms 2 years ago s/p normal Colonoscopy by Dr. Waite at that time. Vitals stable. Hgb 13.0, previously 12.9 on 05/19/11. Monitor Hgb/Hct. Held ASA. Consult GI, plan for sigmoidoscopy today. Per patient, bleeding has subsided this morning. C.Difficile Diarrhea: Cdiff PCR positive. Started on Flagyl 500mg q8h [id number] and Lactinex tid. HTN: BP 160's on arrival, currently 148/93, HR 81. Will monitor. BP improved, currently 128/75. Chronic Renal Insufficiency: Creatinine 1.59, previously 1.62 on 05/20/11. Continue on IVF for hydration, repeat labs pending. DVT Prophylaxis: Pharmacologic contraindication in light of GI bleed. Discharge Planning 1045hrs: Possible discharge later today if cleared by GI after sigmoidoscopy. 1300hrs: Patient returned from sigmoidoscopy, showed internal hemorrhoids, diverticulosis, but no acute inflammatory C.diff colitis. Cleared for discharge by GI Dr. Baker. Recommended high fiber diet, continue flagyl/lactinex [id number], and follow up with Dr. Waite in 2-3 weeks. Patient tolerated oral intake and wants to go home. He was discharged. Discharge patient to home Condition on discharge: Stable Heart Healthy/High Fiber Diet as tolerated Ad Velia activity Rx written: Flagyl 500mg tid [id number], Lactinex tid [id number] Follow-up with primary care physician and coffee weigher Dr. Waite in 2-3 weeks Problem Qualifiers (1) GI bleed: Qualified Codes: K92.2 - Gastrointestinal hemorrhage, unspecified Candi Mireles PA-C May 27, 2017 10:49 am
[2017-05-27] MEDS ORDERED: LIDOCAINE HCL 1% PF 5 ML SYRINGE OTHER ONE (12:00)
[2017-05-27] MEDS ORDERED: PROPOFOL 200 MG/20 ML AMP IV ONE (12:00)
[2017-05-27 12:47] VITALS: BP 128/65; PULSE 82; RESP 20; TEMP 98.5; O2SAT 94
[2017-05-27] MEDS ORDERED: LACT PO (12:54)
[2017-05-27] MEDS ORDERED: METR-1 PO (12:54)
--- NOTE | 2017-05-27 12:58 | HHI.DCPOC ---
Discharge Care Plan Diagnosis: (1) GI bleed (2) Internal hemorrhoid, bleeding (3) Diverticulosis (4) Renal insufficiency (5) HTN (hypertension) Goals to Promote Your Health * To prevent worsening of your condition and complications * To maintain your health at the optimal level Directions to Meet Your Goals Take your medications as prescribed Follow your dietary instruction Follow activity as directed Keep your appointments as scheduled Take your immunizations and boosters as scheduled If your symptoms worsen call your PCP, if no PCP go to Urgent Care Center or Emergency Room Smoking is Dangerous to Your Health. Avoid second hand smoke Call the 24-hour hour crisis hotline for domestic abuse at Candi Mireles PA-C May 27, 2017 12:58
[2017-05-27 13:54] LABS: AUTOMATED NEUTROPHIL # 4.1 TH/MM3 (1.8-7.7); BASOPHIL % 0.5 % (0.0-2.0); EOSINOPHIL # 0.1 TH/MM3 (0-0.4); EOSINOPHIL % 1.9 % (0.0-4.0); HEMATOCRIT 28.9 % (39.0-51.0); HEMO FLAGS DIFF FINAL; LYMPH % 22.4 % (9.0-44.0); LYMPHOCYTE # 1.4 TH/MM3 (1.0-4.8); MEAN CELL VOLUME 92.9 FL (80.0-100.0); MEAN CORPUSCULAR HEMOGLOBIN 31.2 PG (27.0-34.0); MEAN CORPUSCULAR HGB CONC 33.6 % (32.0-36.0); MONO % 10.1 % (0.0-8.0); NEUT % 65.1 % (16.0-70.0); PLATELET COUNT 147 TH/MM3 (150-450); RED BLOOD COUNT 3.11 MIL/MM3 (4.50-5.90); RED CELL DISTRIBUTION WIDTH 13.3 % (11.6-17.2); WHITE BLOOD COUNT 6.3 TH/MM3 (4.0-11.0)
[2017-05-27 14:22] LABS: ALT (GPT) 23 U/L (12-78); ANION GAP 10 MEQ/L (5-15); AST (GOT) 14 U/L (15-37); BICARBONATE 23.5 MEQ/L (21.0-32.0); BLOOD UREA NITROGEN 9 MG/DL (7-18); CHLORIDE 110 MEQ/L (98-107); GLOMERULAR FILTRATION RATE 78 ML/MIN (>89); POTASSIUM 3.7 MEQ/L (3.5-5.1); SODIUM (NA) 143 MEQ/L (136-145)
[2017-05-27 14:24] LABS: ALKALINE PHOSPHATASE 35 U/L (45-117); TOTAL BILIRUBIN ADULT 0.4 MG/DL (0.2-1.0)
--- NOTE | 2017-05-28 08:24 | MR ---
cc: IRVIN NICKERSON DATE: 05/27/2017 PROCEDURE PERFORMED Flexible sigmoidoscopy PROCEDURE Evaluation of rectal bleeding, recent C. difficile DNA of the stool was positive. The patient has been on amoxicillin therapy prior to this as well. Photographs were taken. No biopsies. PREMEDICATION Administered by anesthesiology. Monitoring was with pulse oximeter, EKG, blood pressure monitor. PROCEDURE NOTE After informed consent was obtained and the procedures, risks and benefits were explained including the risks of bleeding, sepsis, perforation, and the risks of anesthesia, the patient was placed in the left lateral position. The video pediatric colonoscope was inserted in the rectum. The scope was advanced easily into the sigmoid colon, descending colon and ultimately the transverse colon was entered. The scope was advanced to the proximal level of the hepatic flexure and then withdrawn. There was a small amount of residual stool, otherwise the preparation was very good. The colonic mucosa throughout appeared to be grossly normal without inflammatory changes or colitis. Scattered diverticulosis was noted in the transverse colon and also in the descending and sigmoid regions. The scope was retroflexed in the rectum and on retroflex view, grade 2 internal hemorrhoids were noted with slight erythema, and redness suggestive perhaps rectal bleeding was secondary to the hemorrhoids. The scope was straightened and removed. The patient tolerated procedure well. No immediate complications were noted. IMPRESSION This examination was essentially benign. The scope was advanced to the proximal level of the hepatic flexure. The mucosa appeared to be normal. Diverticular disease was noted. The patient also revealed internal hemorrhoids which could be the source of his bleeding. Other potential etiologies could include diverticular disease. PLAN Would advance the patient's diet. Continue antibiotic therapy with Flagyl. Follow up clinically as an outpatient for further recommendations. Recommend a high fiber diet as well. MD ARANZA Bergeron/OZIEL /12:17 PM /8:11 AM
== END 2017-05-27 16:23 | disposition home or self-care (01) ==
LOC: NEPE 03:08 → NEDA 05:01 → NEPGCP 05:57
PROVIDERS: ADMIT Internal Medicine; ATTEND Internal Medicine
DX: K64.0 First degree hemorrhoids (principal); K62.5 Hemorrhage of anus and rectum; K57.90 Diverticulosis of intestine, part unspecified, without perforation or abscess without bleeding; R10.30 Lower abdominal pain, unspecified; R42 Dizziness and giddiness; I12.9 Hypertensive chronic kidney disease with stage 1 through stage 4 chronic kidney disease, or unspecified chronic kidney disease; N18.9 Chronic kidney disease, unspecified; E78.00 Pure hypercholesterolemia, unspecified
CPT/HCPCS: 00810; 45330; 80053; 85025; 85610; 85730; 86850; 86900; 86901; 87493; 96361; 96365; 99285; C9113; G0378; J7030

== ENCOUNTER 2018-05-04 09:20 | Inpatient (IN) ==
[2018-05-04] MEDS ORDERED: Sod Chloride 0.9% Inj 1,000 ML IV.SIG ONE (09:44)
--- NOTE | 2018-05-04 09:47 | ED ---
HPI General Chief complaint: GI Bleed Stated complaint: Rectal Bleeding Time Seen by Provider: 05/04/18 09:38 Source: patient Mode of arrival: ambulatory Limitations: no limitations History of Present Illness HPI Narrative: Patient is a 78-year-old male who presents the emergency room with complaints of melena. Patient reports that he thinks that the hemorrhoid burst yesterday as he thinks that he may have eaten too many peanut M&M's on Friday. Patient reports that since yesterday, he has been having bloody bowel movements, reports severe pain to his rectum. Patient reports that his abdomen feels sore, reports that he has had multiple episodes of diarrhea yesterday. Patient reports that he called his railroad dining car stewardess, Dr. Waite who instructed him to come directly to the ER for evaluation. Patient reports that he has had a colonoscopy by Dr. Waite which was benign. He does have history of C. difficile. He was last seen at [facility] in April of 2017 for similar symptoms. Patient reports that he currently is not on anticoagulants. Patient with no recent contact with C. difficile patients, he has not been on any antibiotics recently. Please note that patient did have a flex sig on 05/27/17-diverticular disease was noted, the mucosa appeared to be normal. They also noted internal hemorrhoids which could have been the source of his bleeding. Related Data Home Medications Medication Instructions Recorded Confirmed amlodipine 5 mg PO HS 05/04/18 05/04/18 cholecalciferol (vitamin D3) 1,000 unit PO DAILY 05/04/18 05/04/18 [Vitamin D3] coQ10 (ubiquinol) 300 mg PO DAILY 05/04/18 05/04/18 cyanocobalamin-cobamamide [B12] 1,000 mg SUBLINGUAL DAILY 05/04/18 05/04/18 irbesartan [Avapro] 300 mg PO DAILY 05/04/18 05/04/18 lactobacillus combination no.4 3,000 mmu cells PO DAILY 05/04/18 05/04/18 [Probiotic] multivitamin 1 tab PO DAILY 05/04/18 05/04/18 pantoprazole 40 mg PO DAILY 05/04/18 05/04/18 rosuvastatin [Crestor] 10 mg PO HS 05/04/18 05/04/18 tadalafil [Cialis] 5 mg PO DAILY 05/04/18 05/04/18 testosterone cypionate 0.5 ml IM DIRECTED 05/04/18 05/04/18 vitamin E 400 unit PO DAILY 05/04/18 05/04/18 zolpidem [Ambien] 5 mg PO HS PRN 05/04/18 05/04/18 Allergies Allergy/AdvReac Type Severity Reaction Status Date / Time Sulfa (Sulfonamide Allergy Unknown Unknown Verified 05/04/18 09:47 Antibiotics) Review of Systems ROS: all other systems reviewed are negative [facility] History History Provided By: Patient Medical History Medical History Bleeding hemorrhoid (Acute) Clostridium difficile infection (Acute) High cholesterol (Acute) Hypertension (Acute) Surgical History Surgical History History of prostate surgery (Acute) S/P surgery on nasal septum (Acute) Social History Social History Substance History: No History of Abuse Smoking Status: Never smoker How Often Do You Have a Drink Containing Alcohol: 2 to 4 times a month Recent Travel in [facility] within the Last 8 Weeks: No Recent Out of Country Travel within the Last 8 Weeks: No Exam Narrative Exam Narrative: GENERAL: moderate distress SKIN: Focused skin assessment warm/dry. HEAD: Atraumatic. Normocephalic. EYES: Pupils equal and round. No scleral icterus. No injection or drainage. ENT: No nasal bleeding or discharge. Mucous membranes pink and moist. NECK: Trachea midline. No JVD. CARDIOVASCULAR: Regular rate and rhythm. No murmur appreciated. RESPIRATORY: No accessory muscle use. Clear to auscultation. Breath sounds equal bilaterally. GASTROINTESTINAL: Abdomen soft, non-tender, nondistended. Hepatic and splenic margins not palpable. RECTAL EXAM: Exam performed with RN at bedside - patient with no obvious external hemorrhoids, he does have melena, heme positive stools MUSCULOSKELETAL: No obvious deformities. No clubbing. No cyanosis. No edema. NEUROLOGICAL: Awake and alert. No obvious cranial nerve deficits. Motor grossly within normal limits. Normal speech. PSYCHIATRIC: Appropriate mood and affect; insight and judgment normal. Course Initial Documented Vital Signs Temperature 97.8 F 05/04/18 09:40 Pulse Rate 102 H 05/04/18 09:40 Respiratory Rate 18 05/04/18 09:40 Blood Pressure 122/94 H 05/04/18 09:40 Pulse Oximetry 100 05/04/18 09:40 Last Documented Vital Signs Temperature 97.8 F 05/04/18 09:40 Pulse Rate 96 H 05/04/18 10:25 Respiratory Rate 18 05/04/18 10:25 Blood Pressure 131/74 05/04/18 10:25 Pulse Oximetry 97 05/04/18 10:25 Medical Decision Making MDM Narrative Medical decision making narrative: During the course of the patients emergency department visit, the patients history, examination, and differential diagnosis were reviewed with the patient. The patient was placed on a diesel fitter mechanic with oximetry and frequent blood pressure monitoring. The patient had an IV access obtained and blood work sent for analysis. The patient was initially provided IVF Previous records reviewed, patient did have a flex sig on May 27, 2017 and was found to have internal hemorrhoids as well as diverticular disease. Patient reports symptoms are similar to when he was seen in April 2017. Since no obvious hemorrhoids are to be seen, a GI bleed workup will be initiated. Given his multiple episodes of diarrhea yesterday and history of C. difficile, a C. difficile PCR was sent. The patients laboratory studies were reviewed and remarkable for: WBC 12.7, hemoglobin 12.0, hematocrit 33.5, platelets 217 Sodium 137, potassium 4.9, BUN 24, creatinine 1.80, glucose 203 C. difficile cultures are pending. Radiology studies were reviewed and remarkable for: Uncomplicated colonic diverticulosis, no evidence of ileus or obstruction, large left renal cyst, no acute findings Patient will be obs for GI bleed - he will need serial h&h's and possibily flex sig by GI case reviewed with Dr. Rahman who accepts pt to service Medical Screen Exam Complete: Yes Emergency Medical Condition: Yes Differential Diagnosis Differential Diagnosis: GI bleed, internal hemorrhoids, symptomatic anemia, C. difficile Medical Records Medical records reviewed: Yes I reviewed the patient's medical records. Lab Data Result diagrams: 05/04/18 09:50 05/04/18 09:50 Lab Results 05/04/18 05/04/18 05/04/18 Range/Units 09:50 09:50 09:50 CBC w Diff Auto diff final WBC 12.7 H (4.0-11.0) th/mm3 RBC 3.73 L (4.50-5.90) mil/mm3 Hgb 12.0 L (13.0-17.0) gm/dL Hct 33.5 L (39.0-51.0) % MCV 89.9 (80.0-100.0) fL MCH 32.0 (27.0-34.0) pg MCHC 35.7 (32.0-36.0) % RDW 13.6 (11.6-17.2) % Plt Count 217 (150-450) th/mm3 MPV 9.5 (7.0-11.0) fL Neut % (Auto) 78.5 H (16.0-70.0) % Lymph % (Auto) 16.4 (9.0-44.0) % [place] % (Auto) 4.6 (0.0-8.0) % Eos % (Auto) 0.1 (0.0-4.0) % Baso % (Auto) 0.4 (0.0-2.0) % Neut # (Auto) 9.9 H (1.8-7.7) th/mm3 Lymph # (Auto) 2.1 (1.0-4.8) th/mm3 [place] # (Auto) 0.6 (0.0-0.9) th/mm3 Eos # (Auto) 0.0 (0.0-0.4) th/mm3 Baso # (Auto) 0.1 (0.0-0.2) th/mm3 WBC Differential . Differential Comment . PT 10.9 (9.8-11.6) sec INR 1.1 Ratio APTT 22.2 L (23.4-31.7) sec Sodium 137 (136-145) meq/L Potassium 4.9 (3.5-5.1) meq/L Chloride 104 (98-107) meq/L Carbon Dioxide 19.7 L (21.0-32.0) meq/L Anion Gap 13 (5-15) meq/L BUN 24 H (7-18) mg/dL Creatinine 1.80 H (0.60-1.30) mg/dL Estimated GFR 37 L (>89) mL/min Random Glucose 203 H (74-106) mg/dL Calcium 8.4 L (8.5-10.1) mg/dL Magnesium 1.9 (1.5-2.5) mg/dL Total Bilirubin 0.5 (0.2-1.0) mg/dL AST 27 (15-37) U/L ALT 20 (12-78) U/L Alkaline Phosphatase 33 L (45-117) U/L Total Protein 6.2 L (6.4-8.2) g/dL Albumin 3.3 L (3.4-5.0) g/dL Lipase 182 (73-393) U/L Blood Type Antibody Screen 05/04/18 Range/Units 09:50 CBC w Diff WBC (4.0-11.0) th/mm3 RBC (4.50-5.90) mil/mm3 Hgb (13.0-17.0) gm/dL Hct (39.0-51.0) % MCV (80.0-100.0) fL MCH (27.0-34.0) pg MCHC (32.0-36.0) % RDW (11.6-17.2) % Plt Count (150-450) th/mm3 MPV (7.0-11.0) fL Neut % (Auto) (16.0-70.0) % Lymph % (Auto) (9.0-44.0) % [place] % (Auto) (0.0-8.0) % Eos % (Auto) (0.0-4.0) % Baso % (Auto) (0.0-2.0) % Neut # (Auto) (1.8-7.7) th/mm3 Lymph # (Auto) (1.0-4.8) th/mm3 [place] # (Auto) (0.0-0.9) th/mm3 Eos # (Auto) (0.0-0.4) th/mm3 Baso # (Auto) (0.0-0.2) th/mm3 WBC Differential Differential Comment PT (9.8-11.6) sec INR Ratio APTT (23.4-31.7) sec Sodium (136-145) meq/L Potassium (3.5-5.1) meq/L Chloride (98-107) meq/L Carbon Dioxide (21.0-32.0) meq/L Anion Gap (5-15) meq/L BUN (7-18) mg/dL Creatinine (0.60-1.30) mg/dL Estimated GFR (>89) mL/min Random Glucose (74-106) mg/dL Calcium (8.5-10.1) mg/dL Magnesium (1.5-2.5) mg/dL Total Bilirubin (0.2-1.0) mg/dL AST (15-37) U/L ALT (12-78) U/L Alkaline Phosphatase (45-117) U/L Total Protein (6.4-8.2) g/dL Albumin (3.4-5.0) g/dL Lipase (73-393) U/L Blood Type B Positive Antibody Screen Negative Imaging Data Radiologist's impression: Abdomen/Pelvis CT 05/04/18 09:44 CONCLUSION: 1. Uncomplicated colonic diverticulosis. 2. No evidence of ileus or obstruction. 3. Large left renal cyst. 4. Left nephrolithiasis. 5. Prostatomegaly. Discharge Plan Discharge Disposition Patient Disposition: 30 Still Patient Discharge Condition Condition: Stable Discharge Details Diagnosis: GI (gastrointestinal bleed) Physicians Team ED Provider: Vika Fuller Primary Care Provider: Sussy Mary Other Providers: Nidhi Lozano Rxs /Orders / Referrals /Forms Prescriptions: No Action multivitamin Tablet 1 tab PO DAILY RF: 0 amlodipine 5 mg Tablet 5 mg PO HS RF: 0 pantoprazole 40 mg Tablet,Delayed Release (Dr/Ec) 40 mg PO DAILY RF: 0 zolpidem [Ambien] 5 mg Tablet 5 mg PO HS PRN (Reason: Insomnia) RF: 0 vitamin E 400 unit Capsule 400 unit PO DAILY RF: 0 irbesartan [Avapro] 300 mg Tablet 300 mg PO DAILY RF: 0 cholecalciferol (vitamin D3) [Vitamin D3] 1,000 unit Capsule 1,000 unit PO DAILY RF: 0 rosuvastatin [Crestor] 10 mg Tablet 10 mg PO HS RF: 0 tadalafil [Cialis] 5 mg Tablet 5 mg PO DAILY RF: 0 coQ10 (ubiquinol) 100 mg Capsule 300 mg PO DAILY RF: 0 lactobacillus combination no.4 [Probiotic] 3 billion cell Capsule 3,000 mmu cells PO DAILY RF: 0 testosterone cypionate 200 mg/mL Kit 0.5 ml IM DIRECTED RF: 0 cyanocobalamin-cobamamide [B12] 5,000-100 mcg Lozenge 1,000 mg Sublingual DAILY RF: 0 Status ED Status: With Doctor
[2018-05-04 09:57] LABS: Baso # (Auto) 0.1 th/mm3 (0.0-0.2); Baso % (Auto) 0.4 % (0.0-2.0); Eos % (Auto) 0.1 % (0.0-4.0); Hematocrit 33.5 % (39.0-51.0); Lymph # (Auto) 2.1 th/mm3 (1.0-4.8); Lymph % (Auto) 16.4 % (9.0-44.0); Mean Corpuscular HGB Conc 35.7 % (32.0-36.0); Mean Corpuscular Volume 89.9 fL (80.0-100.0); Mean Platelet Volume 9.5 fL (7.0-11.0); Mono # (Auto) 0.6 th/mm3 (0.0-0.9); Mono % (Auto) 4.6 % (0.0-8.0); Neut # (Auto) 9.9 th/mm3 (1.8-7.7); Neut % (Auto) 78.5 % (16.0-70.0); Platelet Count 217 th/mm3 (150-450); Red Blood Count 3.73 mil/mm3 (4.50-5.90); Red Cell Distribution Width 13.6 % (11.6-17.2); White Blood Count 12.7 th/mm3 (4.0-11.0)
[2018-05-04 10:13] LABS: Chloride 104 meq/L (98-107); Sodium 137 meq/L (136-145)
[2018-05-04 10:16] LABS: Activated Partial Thrombo Time 22.2 sec (23.4-31.7); Calcium 8.4 mg/dL (8.5-10.1); INR 1.1 Ratio; Prothrombin Time 10.9 sec (9.8-11.6)
[2018-05-04 10:17] LABS: Albumin 3.3 g/dL (3.4-5.0); Anion Gap 13 meq/L (5-15); Blood Urea Nitrogen 24 mg/dL (7-18); Carbon Dioxide 19.7 meq/L (21.0-32.0); Glucose,Random 203 mg/dL (74-106); Lipase 182 U/L (73-393); Magnesium 1.9 mg/dL (1.5-2.5)
[2018-05-04 10:20] LABS: Alanine Aminotransferase 20 U/L (12-78); Aspartate Aminotransferase 27 U/L (15-37); Glomerular Filtration Rate 37 mL/min (>89); Potassium 4.9 meq/L (3.5-5.1)
[2018-05-04 10:21] LABS: Total Protein 6.2 g/dL (6.4-8.2)
[2018-05-04 10:22] LABS: Alkaline Phosphatase 33 U/L (45-117)
[2018-05-04] MEDS ORDERED: Morphine Sulfate Inj 2 MG/ML Vial IV.PUSH ONE (11:48)
--- NOTE | 2018-05-04 11:59 | CT ---
EXAM DATE: 05/04/2018 10:20 AM EST AGE/SEX: 78 years / Male INDICATIONS: Rectal bleeding. CLINICAL DATA: This is the patient's initial encounter. Patient reports that signs and symptoms have been present for 2 days and indicates a pain score of 0/10. MEDICAL/SURGICAL HISTORY: Hypercholesterolemia. Hypertension. . Prostate surgery. RADIATION DOSE: 13.39 CTDI (mGy) COMPARISON: [facility], CT ABDOMEN & PELVIS W/O CONTRAST, 05/19/2011. . TECHNIQUE: Multiple contiguous axial images were obtained through the abdomen. Images were obtained using multiple row detector helical technique. Using automated exposure control and adjustment of the mA and/or kV according to patient size, radiation dose was kept as low as reasonably achievable to o btain optimal diagnostic quality images. DICOM format image data is available electronically for rev iew and comparison. FINDINGS: Lower Lungs: The visualized lower lungs are clear. Liver: The liver has a homogeneous density without space-occupying lesion. There is no dilation of th e biliary tree. Spleen: Homogeneous density without enlargement. Pancreas: Unremarkable without mass or calcification. Kidneys: Normal in size and shape. No evidence of mass or hydronephrosis. 6 cm cyst is identified in the parapelvic region of the left kidney. 2 calcified stones are identified in the lower pole left k idney measuring 5 and 6 mm. Nodular Adrenal Glands: Unremarkable. Aorta: The aorta and proximal iliac vessels are grossly unremarkable without aneurysmal dilation. Bowel/Mesentery: Numerous diverticula are scattered throughout the colon especially the sigmoid segm ent. There is no evidence of bladder wall thickening or active inflammation. The bowel loops are othe rwise grossly unremarkable Abdominal Wall: Intact. Retroperitoneum: No evidence of adenopathy in the retrocrural, para-aortic, or deep pelvic regions. Bladder: Contours are smooth. Reproductive Organs: Prostate gland is enlarged. Inguinal: The inguinal region is unremarkable without evidence of adenopathy. Bony Structures: Unremarkable. CONCLUSION: 1. Uncomplicated colonic diverticulosis. 2. No evidence of ileus or obstruction. 3. Large left renal cyst. 4. Left nephrolithiasis. 5. Prostatomegaly. Electronically signed by: Gonzalez Guido MD 05/04/2018 11:58 AM EST
[2018-05-04] MEDS ORDERED: Morphine Inj 4 MG/ML Vial IV.PUSH ONE (13:04)
[2018-05-04] MEDS ORDERED: Naloxone Inj 0.4 MG/ML Vial IV.PUSH PRN (13:11)
[2018-05-04] MEDS ORDERED: Morphine Inj 4 MG/ML Vial IV.PUSH PRN (13:11)
[2018-05-04] MEDS ORDERED: Acetaminophen 325 MG Tablet PO PRN ×2 (13:11→13:12)
[2018-05-04] MEDS: Sod Chloride 0.9% Inj 1,000 ML IV.CONT SCH (13:19)
--- NOTE | 2018-05-04 14:18 | P.HP ---
History of Present Illness Primary Care Physician: Sussy Mary MD History of Present Illness: This is a 78-year-old male with a history of diverticulosis, internal hemorrhoids, hypertension, hyperlipidemia and C. difficile. Patient complains of bright red blood per rectum. He thinks that his hemorrhoid burst yesterday because he ate too many peanut M&Ms a few days ago. Since yesterday he has multiple bloody bowel movements with intermittent crampy abdominal discomfort and weakness. Denies dizziness, chest pain, shortness of breath and palpitations per. He was instructed by his joy operator to present to the emergency department. Patient has history of C. difficile with no recent antibiotic use. Back in April 2017 he underwent flex sigmoidoscopy showing diverticular disease and internal hemorrhoids when he had rectal bleeding. CT of the abdomen pelvis showed uncomplicated colonic diverticulosis. All other systems reviewed negative Review of Systems All other systems reviewed negative except as stated in HPI PMFSH - History History Provided By: Patient - Medical History Medical History: Medical History (Last Reviewed 05/04/18 @ 14:08 by Gen Rahman MD) Bleeding hemorrhoid Clostridium difficile infection High cholesterol Hypertension - Surgical History Surgical History: Surgical History (Last Reviewed 05/04/18 @ 14:08 by Gen Rahman MD) History of prostate surgery S/P surgery on nasal septum - Social History I have reviewed the patient's Social History: Yes - Tobacco History Smoking Status: Never smoker - Alcohol History How Often Do You Have a Drink Containing Alcohol: 2 to 4 times a month - Substance Use History Substance History: No History of Abuse - Travel History Recent Travel in the [place] Within the Last 8 Weeks: No Recent Travel Out of the Country Within the Last 8 Weeks: No - Immunization History Tetanus Immunization: Unsure Medications and Allergies Active Medications: Active Medications Acetaminophen (Tylenol) 650 mg PO Q6HR PRN PRN Reason: PAIN SCALE 1 TO 2 Acetaminophen (Tylenol) 650 mg PO Q4H PRN PRN Reason: Temp > 100.4 Hydrocodone Bitart/Acetaminophen ([place] 5/325) 1 tab PO Q4H PRN PRN Reason: PAIN SCALE 3 TO 5 Hydrocodone Bitart/Acetaminophen ([place] 7.5/325) 1 tab PO Q4H PRN PRN Reason: PAIN SCALE 6 TO 10 Sodium Chloride (Ns Inj) 1,000 mls @ 100 mls/hr IV.CONT .Q10H SMITH Last Admin: 05/04/18 13:19 Dose: 100 mls/hr Morphine Sulfate (Morphine Inj) 2 mg IV.PUSH Q3H PRN PRN Reason: BREAKTHROUGH PAIN Naloxone HCl (Narcan Inj) 0.4 mg IV.PUSH UNSCH PRN PRN Reason: SEE LABEL COMMENTS Ondansetron HCl (Zofran Inj) 4 mg IV.PUSH Q6H PRN PRN Reason: NAUSEA Pantoprazole Sodium (Protonix) 40 mg PO DAILY ON LICENSE OF [facility] Sodium Chloride (Ns Flush) 2 ml IV.FLUSH BID SMITH Sodium Chloride (Ns Flush) 2 ml IV.FLUSH PRN PRN PRN Reason: FLUSH AFTER USING IV ACCESS Zolpidem Tartrate (Ambien) 5 mg PO HS PRN PRN Reason: Insomnia Allergies Allergy/AdvReac Type Severity Reaction Status Date / Time Sulfa (Sulfonamide Allergy Unknown Unknown Verified 05/04/18 09:47 Antibiotics) Home Medications Medication Instructions Recorded Confirmed Type amlodipine 5 mg PO HS 05/04/18 05/04/18 History cholecalciferol (vitamin D3) 1,000 unit PO DAILY 05/04/18 05/04/18 History [Vitamin D3] coQ10 (ubiquinol) 300 mg PO DAILY 05/04/18 05/04/18 History cyanocobalamin-cobamamide [B12] 1,000 mg SUBLINGUAL DAILY 05/04/18 05/04/18 History irbesartan [Avapro] 300 mg PO DAILY 05/04/18 05/04/18 History lactobacillus combination no.4 3,000 mmu cells PO DAILY 05/04/18 05/04/18 History [Probiotic] multivitamin 1 tab PO DAILY 05/04/18 05/04/18 History pantoprazole 40 mg PO DAILY 05/04/18 05/04/18 History rosuvastatin [Crestor] 10 mg PO HS 05/04/18 05/04/18 History tadalafil [Cialis] 5 mg PO DAILY 05/04/18 05/04/18 History testosterone cypionate 0.5 ml IM DIRECTED 05/04/18 05/04/18 History vitamin E 400 unit PO DAILY 05/04/18 05/04/18 History zolpidem [Ambien] 5 mg PO HS PRN 05/04/18 05/04/18 History Exam Vital signs: Vital Signs 05/04/18 09:40 05/04/18 10:04 05/04/18 10:25 Temperature 97.8 F Pulse Rate 102 H 92 H 96 H Respiratory Rate 18 18 Blood Pressure 122/94 H 131/74 Pulse Oximetry 100 100 97 Intake & Output 05/03/18 05/04/18 05/04/18 18:59 06:59 18:59 Intake Total 1000 / 1000 Balance 1000 / 1000 Weight 90.9 kg Intake: IV 1000 / 1000 NS Inj 1,000 ML @ Wide Open IV. 1000 / 1000 SIG BOLUS ONE Rx#:[id number] Narrative: GENERAL: Well-developed and well-nourished in no distress SKIN: Warm and dry. HEAD: Atraumatic. Normocephalic. EYES: Pupils equal and round. No scleral icterus. No injection or drainage. ENT: No nasal bleeding or discharge. Mucous membranes pink and moist. NECK: Trachea midline. No JVD. CARDIOVASCULAR: Regular rate and rhythm. RESPIRATORY: No accessory muscle use. Clear to auscultation. Breath sounds equal bilaterally. GASTROINTESTINAL: Abdomen soft, non-tender, nondistended. Per ED, heme positive with melena MUSCULOSKELETAL: Extremities without clubbing, cyanosis, or edema. No obvious deformities. NEUROLOGICAL: Awake and alert. No obvious cranial nerve deficits. Motor grossly within normal limits. Five out of 5 muscle strength in the arms and legs. Normal speech. PSYCHIATRIC: Appropriate mood and affect; insight and judgment normal. Results - Labs CBC & Chem 7: 05/04/18 09:50 05/04/18 09:50 Labs: Laboratory Results - last 24 hr 05/04/18 05/04/18 05/04/18 09:50 09:50 09:50 CBC w Diff Auto diff final WBC 12.7 H RBC 3.73 L Hgb 12.0 L Hct 33.5 L MCV 89.9 MCH 32.0 MCHC 35.7 RDW 13.6 Plt Count 217 MPV 9.5 Neut % (Auto) 78.5 H Lymph % (Auto) 16.4 [place] % (Auto) 4.6 Eos % (Auto) 0.1 Baso % (Auto) 0.4 Neut # (Auto) 9.9 H Lymph # (Auto) 2.1 [place] # (Auto) 0.6 Eos # (Auto) 0.0 Baso # (Auto) 0.1 WBC Differential . Differential Comment . PT 10.9 INR 1.1 APTT 22.2 L Sodium 137 Potassium 4.9 Chloride 104 Carbon Dioxide 19.7 L Anion Gap 13 BUN 24 H Creatinine 1.80 H Estimated GFR 37 L Random Glucose 203 H Calcium 8.4 L Magnesium 1.9 Total Bilirubin 0.5 AST 27 ALT 20 Alkaline Phosphatase 33 L Total Protein 6.2 L Albumin 3.3 L Lipase 182 Blood Type Antibody Screen 05/04/18 09:50 CBC w Diff WBC RBC Hgb Hct MCV MCH MCHC RDW Plt Count MPV Neut % (Auto) Lymph % (Auto) [place] % (Auto) Eos % (Auto) Baso % (Auto) Neut # (Auto) Lymph # (Auto) [place] # (Auto) Eos # (Auto) Baso # (Auto) WBC Differential Differential Comment PT INR APTT Sodium Potassium Chloride Carbon Dioxide Anion Gap BUN Creatinine Estimated GFR Random Glucose Calcium Magnesium Total Bilirubin AST ALT Alkaline Phosphatase Total Protein Albumin Lipase Blood Type B Positive Antibody Screen Negative - Imaging Impressions Abdomen/Pelvis CT 05/04/18 09:44 CONCLUSION: 1. Uncomplicated colonic diverticulosis. 2. No evidence of ileus or obstruction. 3. Large left renal cyst. 4. Left nephrolithiasis. 5. Prostatomegaly. Caprini VTE Risk Assessment Caprini VTE Risk Assessment: Moderate/High Risk (score >= 2) Caprini Risk Assessment Model: Point Value = 1 Point Value = 2 Point Value = 3 Point Value = 5 Age 41-60 Minor surgery BMI > 25 kg/m2 Swollen legs Varicose veins or History of unexplained or recurrent spontaneous Oral contraceptives or hormone replacement Sepsis (< 1 month) Serious lung disease, including pneumonia (< 1 month) Abnormal pulmonary function Acute myocardial infarction Congestive heart failure (< 1 month) History of inflammatory bowel disease Medical patient at bed rest Age 61-74 Arthroscopic surgery Major open surgery (> 45 min) Laparoscopic surgery (> 45 min) Malignancy Confined to bed (> 72 hours) Immobilizing plaster cast Central venous access Age >= 75 History of VTE Family history of VTE Factor V Leiden Prothrombin [id number] Lupus anticoagulant Anticardiolipin antibodies Elevated serum homocysteine Heparin-induced thrombocytopenia Other congenital or acquired thrombophilia Stroke (< 1 month) Elective arthroplasty Hip, pelvis, or leg fracture Acute spinal cord injury (< 1 month) Prophylaxis Regimen: Total Risk Factor Score Risk Level Prophylaxis Regimen 0-1 Low Early ambulation 2 Moderate Order ONE of the following: *Sequential Compression Device (SCD) *Heparin 5000 units SQ BID 3-4 Higher Order ONE of the following medications: *Heparin 5000 units SQ TID *Enoxaparin/Lovenox 40 mg SQ daily (WT < 150 kg, CrCl > 30 mL/min) *Enoxaparin/Lovenox 30 mg SQ daily (WT < 150 kg, CrCl > 10-29 mL/min) *Enoxaparin/Lovenox 30 mg SQ BID (WT < 150 kg, CrCl > 30 mL/min) AND/OR *Sequential Compression Device (SCD) 5 or more Highest Order ONE of the following medications: *Heparin 5000 units SQ TID (Preferred with Epidurals) *Enoxaparin/Lovenox 40 mg SQ daily (WT < 150 kg, CrCl > 30 mL/min) *Enoxaparin/Lovenox 30 mg SQ daily (WT < 150 kg, CrCl > 10-29 mL/min) *Enoxaparin/Lovenox 30 mg SQ BID (WT < 150 kg, CrCl > 30 mL/min) AND *Sequential Compression Device (SCD) Assessment and Plan - Plan This is a 78-year-old male with a history of diverticulosis, internal hemorrhoids, hypertension, hyperlipidemia and C. difficile. He presents with hematochezia with intermittent abdominal discomfort and weakness. No use of antiplatelets per abdominal CT with diverticulosis. He also reports of diarrhea with history of C. difficile no recent antibiotic use. GI bleed with hematochezia with a history of diverticulosis and internal hemorrhoids. Hemodynamically stable. Keep n.p.o. pending GI consultation start IV hydration. Monitor blood counts to keep hemoglobin at least 8 Diarrhea with history of leukocytosis. No recent antibiotic use. C. difficile ordered. Acute kidney injury likely secondary to GI bleed. Nonoliguric. Continue IV hydration and check UA and CPK DVT Prophylaxis with SCD and early ambulation. Pharmacological prophylaxis contraindicated at this time secondary to GI bleed Discharge Planning: Per GI
[2018-05-04 17:45] LABS: Bilirubin,Urine Negative (Negative); Clarity,Urine Clear (Clear); Color,Urine Yellow (Yellw/Straw); Glucose,Urine (UA) Negative (Negative); Leukocyte Esterase,Urine Trace (Negative); Nitrite,Urine Positive (Negative); Specific Gravity,Urine 1.025 (1.002-1.035); Urobilinogen,Urine 0.2 mg/dL (Less than 2)
[2018-05-04 17:49] LABS: Hematocrit 30.9 % (39.0-51.0); Hemoglobin 10.4 gm/dL (13.0-17.0)
[2018-05-04 17:50] LABS: Amorphous Sediment,Urine Few /hpf; Bacteria,Urine Moderate /hpf; Hyaline Casts,Urine 0-3 /lpf (0-3); RBC,Urine 0-3 /hpf (0-3); WBC,Urine 0-5 /hpf (0-5)
[2018-05-04 17:51] LABS: Mucus,Urine Few /lpf (Occasional)
--- NOTE | 2018-05-04 21:15 | MB ---
cc: Cabrera Baker MD DATE: 05/04/2018 REASON FOR GASTROINTESTINAL CONSULTATION: Rectal bleeding. HISTORY OF PRESENT ILLNESS: A 78-year-old male who has a history of diverticular disease, internal hemorrhoids, followed by Dr. Waite in our practice. He has a history of C. diff in the past as well. He has been admitted with rectal bleeding which began yesterday, most of the day. A moderate to severe amount of rectal bleeding occurred with bright red blood. He notes that he was eating peanut M and M's and a few days ago prior to this bleeding event. He has had 2 prior episodes of rectal bleeding in the past. The last one was in April of last year. Actually, I performed a colonoscopy through the hepatic flexure at that time and he did have significant diverticular disease of the sigmoid and left colon without any active bleeding. He had grade 2 internal hemorrhoids as well. He denies any chest pain or syncopal episodes. He did feel weak and tired and he ultimately presented to the emergency room for further evaluation. A CT of the abdomen revealed uncomplicated colonic diverticular disease scattered throughout the colon, mostly concentrated, however, in the sigmoid colon. His hemoglobin on presentation was 12.2. It did decrease to 10.4. He only had a small amount of darkish maroon stool this evening, but for the most part, over the last 12 hours, his bleeding has subsided. I was asked to evaluate him further. PAST MEDICAL HISTORY: Includes rectal bleeding, C. difficile infection, hypercholesterolemia, hypertension. He also has a history of prostate surgery in the past. SOCIAL HISTORY: He denies smoking or heavy alcohol use. There is no illicit drug use. ALLERGIES: SULFA DRUGS. MEDICATIONS: Include acetaminophen/hydrocodone, ondansetron, pantoprazole, zolpidem. At home, he was taking amlodipine, lactobacillus, pantoprazole, rosuvastatin, Cialis, testosterone, vitamin E. REVIEW OF SYSTEMS: A 12-point review of systems is as stated in the HPI. He denies abdominal pain, although he had lots of rumbling in his lower abdominal region when he was having the bleeding. He has had no emesis. No weight loss. He denies significant constipation or straining. LABORATORY DATA: His white count was 12.7 on admission. Electrolytes were stable. Glucose was 203. Platelet count was adequate. Creatinine was noted to be 1.8. BUN was 24 on admission. Lipase was normal. PHYSICAL EXAMINATION: GENERAL: Well-developed, well-nourished male, alert and oriented x 3, in no acute distress. VITAL SIGNS: Stable. He is normotensive. Heart rate is in the 80s. SKIN: Warm and dry. No unusual rashes. HEENT: Normocephalic, atraumatic. Sclerae are anicteric. Oral mucosa moist. NECK: Supple. No JVD, masses or nodes. CARDIAC: S1, S2, regular rhythm. CHEST: Clear to A and P. ABDOMEN: Soft, nontender. Bowel sounds present. No organomegaly. EXTREMITIES: Without clubbing, cyanosis or edema. NEUROLOGIC: No focal defects appreciated. IMPRESSION: A 78-year-old male who presents with recurrent rectal bleeding. I suspect the etiology may be due to diverticular disease. He does have hemorrhoids as well. The bleeding has seemed to have subside at this point. PLAN: I have had a thorough discussion with the patient and his regarding the etiology to his bleed, which appears to be probably diverticular bleeding. This has been recurrent. We discussed that if he has further bleeding in the future we should obtain a stat nuclear bleeding scan to try and localize the exact site of the colon. I would suspect this is probably in the sigmoid colon where he has a more dense amount of diverticula noted. We discussed that if he continues to have recurrent bleeding from a diverticular source we could consult the general surgeon or colorectal surgeon to consider a partial colectomy of the region involved if it becomes positive on a bleeding scan. We went over dietary measures including a high fiber diet, avoidance of popcorn, peanuts or seeds. Certainly, the peanuts may have promoted this episode of bleeding as he did eat a fair amount of peanuts. We will continue to monitor the H and H closely, and once again, if he has recurrent bleeding, a stat nuclear bleeding scan would be of value. His last exam was a year ago to the hepatic flexure. He has had a full colonoscopy as well in the past. Would proceed conservatively for now, unless he has further bleeding. I thank you kindly for this consult. MD ARANZA Bergeron/prashanth , 07:39 PM , 07:49 PM
[2018-05-04] MEDS: Zolpidem Tartrate 5 MG Tablet PO PRN (21:22)
[2018-05-05] MEDS: Sod Chloride 0.9% Inj 1,000 ML IV.CONT SCH ×3 (00:28→19:12)
[2018-05-05 00:46] LABS: Hematocrit 26.4 % (39.0-51.0); Hemoglobin 8.9 gm/dL (13.0-17.0)
[2018-05-05 06:54] LABS: Baso # (Auto) 0.2 th/mm3 (0.0-0.2); Baso % (Auto) 1.6 % (0.0-2.0); Eos # (Auto) 0.1 th/mm3 (0.0-0.4); Eos % (Auto) 1.1 % (0.0-4.0); Hemoglobin 8.6 gm/dL (13.0-17.0); Lymph # (Auto) 2.9 th/mm3 (1.0-4.8); Lymph % (Auto) 31.3 % (9.0-44.0); Mean Corpuscular HGB Conc 33.1 % (32.0-36.0); Mean Corpuscular Hemoglobin 30.7 pg (27.0-34.0); Mean Corpuscular Volume 92.7 fL (80.0-100.0); Mean Platelet Volume 8.8 fL (7.0-11.0); Mono # (Auto) 0.9 th/mm3 (0.0-0.9); Mono % (Auto) 9.5 % (0.0-8.0); Neut # (Auto) 5.3 th/mm3 (1.8-7.7); Neut % (Auto) 56.5 % (16.0-70.0); Platelet Count 157 th/mm3 (150-450); Red Blood Count 2.81 mil/mm3 (4.50-5.90); Red Cell Distribution Width 13.5 % (11.6-17.2); White Blood Count 9.4 th/mm3 (4.0-11.0)
[2018-05-05 07:35] LABS: Calcium 7.4 mg/dL (8.5-10.1); Carbon Dioxide 24.8 meq/L (21.0-32.0); Potassium 3.9 meq/L (3.5-5.1)
[2018-05-05 07:53] LABS: Total Protein 4.9 g/dL (6.4-8.2)
[2018-05-05] MEDS ORDERED: Non-Formulary Drug (Lactobacillus Combination No.4 [Probiotic] 3,000 MMU CELLS) PO SCH (09:00)
--- NOTE | 2018-05-05 10:09 | P.PNGI ---
Subjective Interval history: ALERT NAD FEELS WEAK NO FURTHER BLEEDING HB 8.6 Physical Exam Vital signs: Vital Signs 05/04/18 10:25 05/04/18 14:57 05/04/18 16:00 Temperature Pulse Rate 96 H 99 H Respiratory Rate 18 15 Blood Pressure 131/74 135/79 Pulse Oximetry 97 93 L 05/04/18 17:09 05/04/18 19:00 05/04/18 20:00 Temperature 98.7 F Pulse Rate 82 88 85 Respiratory Rate 0 L 17 22 Blood Pressure 125/80 137/73 107/72 Pulse Oximetry 92 L 95 05/04/18 21:19 05/05/18 00:00 05/05/18 02:27 Temperature 98.1 F Pulse Rate 80 78 Respiratory Rate 16 12 16 Blood Pressure 104/58 L 147/69 H Pulse Oximetry 94 L 94 L 05/05/18 04:00 05/05/18 08:29 Temperature 98.5 F 98.4 F Pulse Rate 75 77 Respiratory Rate 18 18 Blood Pressure 131/63 125/66 Pulse Oximetry 97 94 L Intake & Output 05/04/18 05/05/18 05/05/18 18:59 06:59 18:59 Intake Total 1960 / 1960 1000 / 1000 1000 / 1000 Output Total 350 / 350 250 / 250 Balance 1610 / 1610 750 / 750 1000 / 1000 Weight 90.8 kg 90.8 kg Intake: IV 1000 / 1000 1000 / 1000 1000 / 1000 NS Inj 1,000 ML @ 100 mls/hr IV 1000 / 1000 1000 / 1000 .CONT .Q10H SMITH Rx#:[id number] NS Inj 1,000 ML @ Wide Open IV. 1000 / 1000 SIG BOLUS ONE Rx#:[id number] Oral 960 / 960 Output: Urine 350 / 350 200 / 200 Stool 50 / 50 Other: # Voids 1 Date of Last Bowel Movement 05/04/18 Weight On Admission 90.9 kg - Routine Abdominal Exam Present: soft Comments: SOFT NT BS POSITIVE NO REBOUND Results - Labs CBC & Chem 7: 05/05/18 06:00 05/05/18 06:00 Laboratory Results - last 24 hr 05/04/18 05/04/18 05/04/18 09:50 09:50 09:50 CBC w Diff WBC RBC Hgb Hct MCV MCH MCHC RDW Plt Count MPV Neut % (Auto) Lymph % (Auto) [place] % (Auto) Eos % (Auto) Baso % (Auto) Neut # (Auto) Lymph # (Auto) [place] # (Auto) Eos # (Auto) Baso # (Auto) WBC Differential Differential Comment PT 10.9 INR 1.1 APTT 22.2 L Sodium 137 Potassium 4.9 Chloride 104 Carbon Dioxide 19.7 L Anion Gap 13 BUN 24 H Creatinine 1.80 H Estimated GFR 37 L Random Glucose 203 H Calcium 8.4 L Prot Corrected Calcium Magnesium 1.9 Total Bilirubin 0.5 AST 27 ALT 20 Alkaline Phosphatase 33 L Total Creatine Kinase Total Protein 6.2 L Albumin 3.3 L Lipase 182 Urine Color Urine Clarity Urine pH Ur Specific [place] Urine Protein Urine Glucose (UA) Urine Ketones Urine Occult Blood Urine Nitrate Urine Bilirubin Urine Urobilinogen Ur Leukocyte Esterase Urine RBC Urine WBC Amorphous Sediment Urine Bacteria Hyaline Casts Urine Mucus Micro UA Comment Ur Microscopic Review Urine Culture Comments Stl C.difficile DNA Amp St C. diff Tox Epid 027 Blood Type B Positive Antibody Screen Negative 05/04/18 05/04/18 05/04/18 09:50 17:36 17:45 CBC w Diff WBC RBC Hgb 10.4 L Hct 30.9 L MCV MCH MCHC RDW Plt Count MPV Neut % (Auto) Lymph % (Auto) [place] % (Auto) Eos % (Auto) Baso % (Auto) Neut # (Auto) Lymph # (Auto) [place] # (Auto) Eos # (Auto) Baso # (Auto) WBC Differential Differential Comment PT INR APTT Sodium Potassium Chloride Carbon Dioxide Anion Gap BUN Creatinine Estimated GFR Random Glucose Calcium Prot Corrected Calcium Magnesium Total Bilirubin AST ALT Alkaline Phosphatase Total Creatine Kinase 80 Total Protein Albumin Lipase Urine Color Yellow Urine Clarity Clear Urine pH 6.0 Ur Specific [place] 1.025 Urine Protein Negative Urine Glucose (UA) Negative Urine Ketones 40 H Urine Occult Blood Negative Urine Nitrate Positive H Urine Bilirubin Negative Urine Urobilinogen 0.2 Ur Leukocyte Esterase Trace H Urine RBC 0-3 Urine WBC 0-5 Amorphous Sediment Few H Urine Bacteria Moderate H Hyaline Casts 0-3 Urine Mucus Few H Micro UA Comment Culture indicated Ur Microscopic Review Microscopic reviewed Urine Culture Comments Culture indicated Stl C.difficile DNA Amp St C. diff Tox Epid 027 Blood Type Antibody Screen 05/04/18 05/05/18 05/05/18 19:20 00:33 06:00 CBC w Diff Auto diff final WBC 9.4 RBC 2.81 L Hgb 8.9 L 8.6 L Hct 26.4 L 26.0 L MCV 92.7 MCH 30.7 MCHC 33.1 RDW 13.5 Plt Count 157 MPV 8.8 Neut % (Auto) 56.5 Lymph % (Auto) 31.3 [place] % (Auto) 9.5 H Eos % (Auto) 1.1 Baso % (Auto) 1.6 Neut # (Auto) 5.3 Lymph # (Auto) 2.9 [place] # (Auto) 0.9 Eos # (Auto) 0.1 Baso # (Auto) 0.2 WBC Differential . Differential Comment . PT INR APTT Sodium Potassium Chloride Carbon Dioxide Anion Gap BUN Creatinine Estimated GFR Random Glucose Calcium Prot Corrected Calcium Magnesium Total Bilirubin AST ALT Alkaline Phosphatase Total Creatine Kinase Total Protein Albumin Lipase Urine Color Urine Clarity Urine pH Ur Specific [place] Urine Protein Urine Glucose (UA) Urine Ketones Urine Occult Blood Urine Nitrate Urine Bilirubin Urine Urobilinogen Ur Leukocyte Esterase Urine RBC Urine WBC Amorphous Sediment Urine Bacteria Hyaline Casts Urine Mucus Micro UA Comment Ur Microscopic Review Urine Culture Comments Stl C.difficile DNA Amp Negative St C. diff Tox Epid 027 Negative Blood Type Antibody Screen 05/05/18 06:00 CBC w Diff WBC RBC Hgb Hct MCV MCH MCHC RDW Plt Count MPV Neut % (Auto) Lymph % (Auto) [place] % (Auto) Eos % (Auto) Baso % (Auto) Neut # (Auto) Lymph # (Auto) [place] # (Auto) Eos # (Auto) Baso # (Auto) WBC Differential Differential Comment PT INR APTT Sodium 141 Potassium 3.9 D Chloride 108 H Carbon Dioxide 24.8 Anion Gap 8 BUN 17 Creatinine 1.10 Estimated GFR 65 L Random Glucose 102 D Calcium 7.4 L* D Prot Corrected Calcium 8.6 Magnesium Total Bilirubin AST ALT Alkaline Phosphatase Total Creatine Kinase Total Protein 4.9 L D Albumin Lipase Urine Color Urine Clarity Urine pH Ur Specific [place] Urine Protein Urine Glucose (UA) Urine Ketones Urine Occult Blood Urine Nitrate Urine Bilirubin Urine Urobilinogen Ur Leukocyte Esterase Urine RBC Urine WBC Amorphous Sediment Urine Bacteria Hyaline Casts Urine Mucus Micro UA Comment Ur Microscopic Review Urine Culture Comments Stl C.difficile DNA Amp St C. diff Tox Epid 027 Blood Type Antibody Screen - Imaging Impressions Abdomen/Pelvis CT 05/04/18 09:44 CONCLUSION: 1. Uncomplicated colonic diverticulosis. 2. No evidence of ileus or obstruction. 3. Large left renal cyst. 4. Left nephrolithiasis. 5. Prostatomegaly. Assessment and Plan (1) GI (gastrointestinal bleed) Status: Acute Code(s): K92.2 - Gastrointestinal hemorrhage, unspecified (2) Diverticulosis Status: Acute Code(s): K57.90 - Diverticulosis of intestine, part unspecified , without perforation or abscess without bleeding - Attending Attestation START CLEAR LIQUIDS TOLERATED YUAN H/H TODAY IF STABLE CONSIDER DC W OUTPT F/U AND ORAL IRON THERAPY DISCUSSED W PT (1) GI (gastrointestinal bleed) Qualifiers: GI bleed type/associated pathology: unspecified gastrointestinal hemorrhage type Qualified Code(s): K92.2 - Gastrointestinal hemorrhage, unspecified
[2018-05-05 13:15] LABS: Baso % (Auto) 0.5 % (0.0-2.0); Eos % (Auto) 0.6 % (0.0-4.0); Hemoglobin 7.2 gm/dL (13.0-17.0); Lymph # (Auto) 1.8 th/mm3 (1.0-4.8); Lymph % (Auto) 21.8 % (9.0-44.0); Mean Corpuscular HGB Conc 35.2 % (32.0-36.0); Mean Corpuscular Hemoglobin 31.5 pg (27.0-34.0); Mean Corpuscular Volume 89.6 fL (80.0-100.0); Mean Platelet Volume 8.5 fL (7.0-11.0); Mono # (Auto) 0.8 th/mm3 (0.0-0.9); Mono % (Auto) 9.1 % (0.0-8.0); Neut # (Auto) 5.7 th/mm3 (1.8-7.7); Platelet Count 147 th/mm3 (150-450); Red Blood Count 2.29 mil/mm3 (4.50-5.90); Red Cell Distribution Width 13.5 % (11.6-17.2); White Blood Count 8.3 th/mm3 (4.0-11.0)
[2018-05-05 13:17] LABS: Hematocrit 21.6 % (39.0-51.0)
[2018-05-05] MEDS ORDERED: Sodium Chlor 0.9% Inj 250 ML IV.SIG SCH (15:00)
[2018-05-05] MEDS: Sod Chloride 0.9% Inj 1,000 ML IV.SIG SCH ×2 (15:03→15:55)
--- NOTE | 2018-05-05 15:37 | P.PN ---
Subjective Interval history: Follow-up for GI bleed, diverticulosis and internal hemorrhoids. Patient had multiple episodes of lower GI bleed today. During bowel movement he had profuse bleeding. His blood pressure dropped to 95 systolic. Heart rate 120s. At the time of this interview, patient complained of being very cold. However , he denies any chest pain, shortness of breath, lightheadedness or dizziness. Physical Exam Vital signs: Vital Signs 05/04/18 16:00 05/04/18 17:09 05/04/18 19:00 Temperature Pulse Rate 99 H 82 88 Respiratory Rate 0 L 17 Blood Pressure 125/80 137/73 Pulse Oximetry 92 L 05/04/18 20:00 05/04/18 21:19 05/05/18 00:00 Temperature 98.7 F 98.1 F Pulse Rate 85 80 Respiratory Rate 22 16 12 Blood Pressure 107/72 104/58 L Pulse Oximetry 95 94 L 05/05/18 02:27 05/05/18 04:00 05/05/18 08:29 Temperature 98.5 F 98.4 F Pulse Rate 78 75 77 Respiratory Rate 16 18 18 Blood Pressure 147/69 H 131/63 125/66 Pulse Oximetry 94 L 97 94 L 05/05/18 12:04 05/05/18 14:50 Temperature 98.0 F 96.6 F L Pulse Rate 89 120 H Respiratory Rate 16 24 Blood Pressure 129/69 95/60 L Pulse Oximetry 95 98 Intake & Output 05/04/18 05/05/18 05/05/18 18:59 06:59 18:59 Intake Total 1960 / 1960 1000 / 1000 1000 / 1000 Output Total 350 / 350 250 / 250 Balance 1610 / 1610 750 / 750 1000 / 1000 Weight 90.8 kg 90.8 kg Intake: IV 1000 / 1000 1000 / 1000 1000 / 1000 NS Inj 1,000 ML @ 100 mls/hr IV 1000 / 1000 1000 / 1000 .CONT .Q10H SMITH Rx#:[id number] NS Inj 1,000 ML @ Wide Open IV. 1000 / 1000 SIG BOLUS ONE Rx#:[id number] Oral 960 / 960 Output: Urine 350 / 350 200 / 200 Stool 50 / 50 Other: # Voids 1 Date of Last Bowel Movement 05/04/18 Weight On Admission 90.9 kg Narrative: GENERAL: Alert, somewhat uncomfortable in bed. Feels cold. SKIN: Warm and dry. HEAD: Normocephalic. EYES: No scleral icterus. No injection or drainage. NECK: Supple, trachea midline. No JVD or lymphadenopathy. CARDIOVASCULAR: Regular rhythm, tachycardic without murmurs, gallops, or rubs. RESPIRATORY: Breath sounds equal bilaterally. No accessory muscle use. GASTROINTESTINAL: Abdomen soft, non-tender, nondistended. MUSCULOSKELETAL: No cyanosis, or edema. BACK: Nontender without obvious deformity. No CVA tenderness. Results - Labs CBC & Chem 7: 05/05/18 13:00 05/05/18 06:00 Laboratory Results - last 24 hr 05/04/18 05/04/18 05/04/18 09:50 17:36 17:45 CBC w Diff WBC RBC Hgb 10.4 L Hct 30.9 L MCV MCH MCHC RDW Plt Count MPV Neut % (Auto) Lymph % (Auto) [place] % (Auto) Eos % (Auto) Baso % (Auto) Neut # (Auto) Lymph # (Auto) [place] # (Auto) Eos # (Auto) Baso # (Auto) WBC Differential Differential Comment Sodium Potassium Chloride Carbon Dioxide Anion Gap BUN Creatinine Estimated GFR Random Glucose Calcium Prot Corrected Calcium Total Creatine Kinase 80 Total Protein Urine Color Yellow Urine Clarity Clear Urine pH 6.0 Ur Specific [place] 1.025 Urine Protein Negative Urine Glucose (UA) Negative Urine Ketones 40 H Urine Occult Blood Negative Urine Nitrate Positive H Urine Bilirubin Negative Urine Urobilinogen 0.2 Ur Leukocyte Esterase Trace H Urine RBC 0-3 Urine WBC 0-5 Amorphous Sediment Few H Urine Bacteria Moderate H Hyaline Casts 0-3 Urine Mucus Few H Micro UA Comment Culture indicated Ur Microscopic Review Microscopic reviewed Urine Culture Comments Culture indicated Stl C.difficile DNA Amp St C. diff Tox Epid 027 MTS Gel Crossmatch 05/04/18 05/05/18 05/05/18 19:20 00:33 06:00 CBC w Diff Auto diff final WBC 9.4 RBC 2.81 L Hgb 8.9 L 8.6 L Hct 26.4 L 26.0 L MCV 92.7 MCH 30.7 MCHC 33.1 RDW 13.5 Plt Count 157 MPV 8.8 Neut % (Auto) 56.5 Lymph % (Auto) 31.3 [place] % (Auto) 9.5 H Eos % (Auto) 1.1 Baso % (Auto) 1.6 Neut # (Auto) 5.3 Lymph # (Auto) 2.9 [place] # (Auto) 0.9 Eos # (Auto) 0.1 Baso # (Auto) 0.2 WBC Differential . Differential Comment . Sodium Potassium Chloride Carbon Dioxide Anion Gap BUN Creatinine Estimated GFR Random Glucose Calcium Prot Corrected Calcium Total Creatine Kinase Total Protein Urine Color Urine Clarity Urine pH Ur Specific [place] Urine Protein Urine Glucose (UA) Urine Ketones Urine Occult Blood Urine Nitrate Urine Bilirubin Urine Urobilinogen Ur Leukocyte Esterase Urine RBC Urine WBC Amorphous Sediment Urine Bacteria Hyaline Casts Urine Mucus Micro UA Comment Ur Microscopic Review Urine Culture Comments Stl C.difficile DNA Amp Negative St C. diff Tox Epid 027 Negative MTS Gel Crossmatch 05/05/18 05/05/18 05/05/18 06:00 13:00 14:22 CBC w Diff Auto diff final WBC 8.3 RBC 2.29 L Hgb 7.2 L Hct 21.6 L MCV 89.6 MCH 31.5 MCHC 35.2 RDW 13.5 Plt Count 147 L MPV 8.5 Neut % (Auto) 68.0 Lymph % (Auto) 21.8 [place] % (Auto) 9.1 H Eos % (Auto) 0.6 Baso % (Auto) 0.5 Neut # (Auto) 5.7 Lymph # (Auto) 1.8 [place] # (Auto) 0.8 Eos # (Auto) 0.0 Baso # (Auto) 0.0 WBC Differential . Differential Comment . Sodium 141 Potassium 3.9 D Chloride 108 H Carbon Dioxide 24.8 Anion Gap 8 BUN 17 Creatinine 1.10 Estimated GFR 65 L Random Glucose 102 D Calcium 7.4 L* D Prot Corrected Calcium 8.6 Total Creatine Kinase Total Protein 4.9 L D Urine Color Urine Clarity Urine pH Ur Specific [place] Urine Protein Urine Glucose (UA) Urine Ketones Urine Occult Blood Urine Nitrate Urine Bilirubin Urine Urobilinogen Ur Leukocyte Esterase Urine RBC Urine WBC Amorphous Sediment Urine Bacteria Hyaline Casts Urine Mucus Micro UA Comment Ur Microscopic Review Urine Culture Comments Stl C.difficile DNA Amp St C. diff Tox Epid 027 MTS Gel Crossmatch See Detail Microbiology 05/04/18 17:36 Clean Catch Urine Urine Culture - Preliminary Immature growth - reincubate - Imaging Abdomen/Pelvis CT 05/04/18 09:44 CONCLUSION: 1. Uncomplicated colonic diverticulosis. 2. No evidence of ileus or obstruction. 3. Large left renal cyst. 4. Left nephrolithiasis. 5. Prostatomegaly. - Procedures None Assessment and Plan - Plan Mr. Schwartz is a pleasant male with a history of diverticulosis, internal hemorrhoids, hypertension, hyperlipidemia and C. difficile colitis who presented to the emergency department on 05/04/2018 due to bright red blood per rectum. Patient's hemoglobin was 12.0 on the day of admission on 05/04/2018 at 9:50 AM. His hemoglobin dropped to 7.2 on 05/05/2018 at 1300. GI evaluated patient and recommended bleeding scan. However, due to acute blood loss and impending hemodynamic collapse, patient was transferred to the [facility] on 05/05/2018. Acute significant GI blood loss Impending hemodynamic collapse -I discussed at length with GI as well as colorectal surgery and interventional radiology. -We started patient on normal saline bolus due to blood pressure 95/60. -We also ordered 2 units of blood products. -Protonix drip as brisk upper GI bleed could cause bright red per rectum as well. -40 mg of Protonix IV was pushed before patient was transferred to the [facility] ICU. -Prior to transfer, patient's blood pressure was 148 systolic. Diverticulosis Hx of Internal hemorrhoids -Appreciate GI input. -Patient will likely need intervention by IR or Surgery. Full code. SCDs. Overall, patient had episodes of profuse bleeding, became hypotensive with systolic BP 95, tachycardic, cold, clammy. He responded to fluid bolus. I have discussed with IR, Colorectal surgery as well as GI. Due to impending hemodynamic collapse, we feel it is necessary to transfer patient to [facility] ICU. He may need angiographic intervention by IR or surgical intervention if he continues to bleed. Total critical care time spent more than 35 minutes.
[2018-05-05] MEDS ORDERED: Pantoprazole Inj 40 MG Vial IV.PUSH ONE (16:00)
[2018-05-05] MEDS ORDERED: Pantoprazole Inj 80 MG in Sodium Chlor 0.9% Inj 100 ML IV.CONT SCH (17:00)
[2018-05-05] MEDS ORDERED: fentaNYL Citrate Inj 100 MCG/2 ML Ampul ONE (17:48)
--- NOTE | 2018-05-05 18:34 | P.RAD ---
Post Procedure Progress Note - Pre Procedure Diagnosis (1) GI (gastrointestinal bleed) - Post Procedure Diagnosis (1) GI (gastrointestinal bleed) - Procedure Information Procedure Date: 05/05/18 Supervising Radiologist: Kevin Araya MD Anesthesia: Conscious Sedation - Plan of Activity Patient to Unit: Nursing Unit Patient Condition: Fair See PACS Report for procedural detail/treatment. Vascular - Arterial Procedure Superior Mesenteric Artery Procedure: Angiogram (tamia also ) - Additional Information Findings: negative
[2018-05-05] MEDS: Pantoprazole Inj 40 MG Vial IV.PUSH SCH (19:11)
[2018-05-05] MEDS: Zolpidem Tartrate 5 MG Tablet PO PRN (21:23)
[2018-05-06] MEDS ORDERED: Chlorhexidine Gluconate 2% 1 Pack (2 Cloths) TOPICAL PRN (04:00)
[2018-05-06] MEDS: Chlorhexidine Gluconate 2% 1 Pack (2 Cloths) TOPICAL SCH (04:48)
[2018-05-06 05:39] LABS: Baso % (Auto) 0.3 % (0.0-2.0); Eos % (Auto) 0.3 % (0.0-4.0); Hematocrit 27.3 % (39.0-51.0); Hemoglobin 9.7 gm/dL (13.0-17.0); Lymph # (Auto) 2.3 th/mm3 (1.0-4.8); Lymph % (Auto) 20.2 % (9.0-44.0); Mean Corpuscular HGB Conc 35.5 % (32.0-36.0); Mean Corpuscular Hemoglobin 30.4 pg (27.0-34.0); Mean Corpuscular Volume 85.9 fL (80.0-100.0); Mean Platelet Volume 8.4 fL (7.0-11.0); Mono # (Auto) 1.5 th/mm3 (0.0-0.9); Mono % (Auto) 12.8 % (0.0-8.0); Neut # (Auto) 7.6 th/mm3 (1.8-7.7); Neut % (Auto) 66.4 % (16.0-70.0); Platelet Count 91 th/mm3 (150-450); Red Blood Count 3.19 mil/mm3 (4.50-5.90); Red Cell Distribution Width 18.3 % (11.6-17.2); White Blood Count 11.5 th/mm3 (4.0-11.0)
[2018-05-06 06:02] LABS: Calcium 6.6 mg/dL (8.5-10.1); Potassium 3.8 meq/L (3.5-5.1)
[2018-05-06 06:14] LABS: Total Protein 4.3 g/dL (6.4-8.2)
[2018-05-06] MEDS: Pantoprazole Inj 40 MG Vial IV.PUSH SCH ×2 (06:28→17:57)
[2018-05-06 08:02] LABS: Platelet Morphology Normal (Normal)
--- NOTE | 2018-05-06 08:20 | P.PNIM ---
Subjective Interval history: f/u; GI bleed in no acute distress. denies abdominal pain, nausea. but feels weak. no reported GI bleed this morning. Physical Exam Vital signs: Vital Signs 05/05/18 08:20 05/05/18 08:29 05/05/18 12:00 Temperature 98.4 F Pulse Rate 72 77 91 H Respiratory Rate 18 Blood Pressure 125/66 Pulse Oximetry 94 L 05/05/18 12:04 05/05/18 14:50 05/05/18 15:30 Temperature 98.0 F 96.6 F L Pulse Rate 89 120 H Respiratory Rate 16 24 Blood Pressure 129/69 95/60 L 140/79 Pulse Oximetry 95 98 05/05/18 17:02 05/05/18 17:14 05/05/18 19:02 Temperature 98.6 F Pulse Rate 120 H 111 H 103 H Respiratory Rate 20 20 24 Blood Pressure 123/74 116/75 132/70 Pulse Oximetry 99 05/05/18 20:00 05/05/18 20:01 05/05/18 20:15 Temperature 99.7 F H 99.7 F H 100.0 F H Pulse Rate 90 90 89 Respiratory Rate 19 21 34 H Blood Pressure 124/76 124/76 146/75 H Pulse Oximetry 98 98 98 05/05/18 20:27 05/05/18 21:00 05/05/18 21:56 Temperature 98.4 F Pulse Rate 95 H 87 89 Respiratory Rate 23 10 L 11 L Blood Pressure 146/75 H 132/70 132/70 Pulse Oximetry 98 97 93 L 05/05/18 22:00 05/05/18 22:10 05/05/18 23:00 Temperature 98.4 F Pulse Rate 88 87 87 Respiratory Rate 16 17 19 Blood Pressure 120/59 L 120/70 120/70 Pulse Oximetry 93 L 94 L 94 L 05/06/18 00:00 05/06/18 01:00 05/06/18 02:00 Temperature 99.1 F Pulse Rate 86 84 82 Respiratory Rate 7 L 18 16 Blood Pressure 122/60 131/60 101/52 L Pulse Oximetry 94 L 94 L 95 05/06/18 03:00 05/06/18 04:00 05/06/18 05:00 Temperature 99.1 F Pulse Rate 89 86 83 Respiratory Rate 17 16 17 Blood Pressure 137/63 138/70 143/65 H Pulse Oximetry 94 L 93 L 96 05/06/18 06:00 Temperature Pulse Rate 80 Respiratory Rate 15 Blood Pressure 119/63 Pulse Oximetry 93 L Intake & Output 05/05/18 05/06/18 05/06/18 18:59 06:59 18:59 Intake Total 2850 / 2850 2054 Output Total 300 / 300 1450 / 1450 Balance 2550 / 2550 605 / 605 Weight 100 kg Intake: IV 2049 1000 / 1000 NS Inj 1,000 ML @ 100 mls/hr IV 1000 / 1000 1000 / 1000 .CONT .Q10H SMITH Rx#:[id number] NS Inj 1,000 ML @ 2000 mls/hr 1000 / 1000 IV.SIG Q30M SMITH Rx#:[id number] NS Inj 250 ML @ 15 mls/hr IV. 50 / 50 SIG ONCE SMITH Rx#:[id number] Oral 240 / 240 Other 15 15 Rbc As-3 Leukoreduced Unit 5 / 5 [id number] Rbc As-3 Leukoreduced Unit 10 [id number] Intake (Blood Product) Amt 800 / 800 800 / 800 Rbc As-3 Leukoreduced Unit 400 / 400 [id number] Rbc As-3 Leukoreduced Unit 400 / 400 [id number] Rbc As-3 Leukoreduced Unit 400 / 400 [id number] Rbc As-3 Leukoreduced Unit 400 / 400 [id number] Output: Urine 300 / 300 1450 / 1450 Stool 0 / 0 Other: Other Intake Source Rbc As-3 Leukoreduced Unit Saline Solution [id number] Rbc As-3 Leukoreduced Unit Saline Solution [id number] # Voids 2 3 Date of Last Bowel Movement 05/04/18 - Constitutional no acute distress - Routine Respiratory Exam Present: CTA bilaterally - Routine Cardiovascular Exam Present: RRR - Routine Abdominal Exam Present: soft - Routine Extremities Exam Comments: no pedal edema. - Routine Neurological Exam Present: alert, oriented X3 Results - Labs CBC & Chem 7: 05/07/18 04:28 05/06/18 05:12 Laboratory Results - last 24 hr 05/05/18 05/05/18 05/05/18 13:00 14:22 16:50 CBC w Diff Auto diff final WBC 8.3 RBC 2.29 L Hgb 7.2 L Hct 21.6 L MCV 89.6 MCH 31.5 MCHC 35.2 RDW 13.5 Plt Count 147 L MPV 8.5 Prelim Diff (Auto) Neut % (Auto) 68.0 Lymph % (Auto) 21.8 [place] % (Auto) 9.1 H Eos % (Auto) 0.6 Baso % (Auto) 0.5 Neut # (Auto) 5.7 Lymph # (Auto) 1.8 [place] # (Auto) 0.8 Eos # (Auto) 0.0 Baso # (Auto) 0.0 WBC Differential . Diff Scan Differential Comment . Platelet Estimate Platelet Morphology Sodium Potassium Chloride Carbon Dioxide Anion Gap BUN Creatinine Estimated GFR Random Glucose Calcium Prot Corrected Calcium Total Protein Nasal Screen MRSA (PCR) MTS Gel Crossmatch See Detail See Detail 05/05/18 05/06/18 05/06/18 19:15 05:12 05:12 CBC w Diff WBC 11.5 H RBC 3.19 L Hgb 9.7 L D Hct 27.3 L MCV 85.9 D MCH 30.4 MCHC 35.5 RDW 18.3 H D Plt Count 91 L D MPV 8.4 Prelim Diff (Auto) Slide review pending Neut % (Auto) 66.4 Lymph % (Auto) 20.2 [place] % (Auto) 12.8 H Eos % (Auto) 0.3 Baso % (Auto) 0.3 Neut # (Auto) 7.6 Lymph # (Auto) 2.3 [place] # (Auto) 1.5 H Eos # (Auto) 0.0 Baso # (Auto) 0.0 WBC Differential . Diff Scan Auto diff confirmed Differential Comment . Platelet Estimate Low L Platelet Morphology Normal Sodium 144 Potassium 3.8 Chloride 112 H Carbon Dioxide 24.0 Anion Gap 8 BUN 18 Creatinine 1.24 Estimated GFR 56 L Random Glucose 91 Calcium 6.6 L* D Prot Corrected Calcium 8.1 L Total Protein 4.3 L D Nasal Screen MRSA (PCR) Not detected MTS Gel Crossmatch Microbiology 05/04/18 17:36 Clean Catch Urine Urine Culture - Preliminary Immature growth - reincubate - Procedures None Assessment and Plan - Plan Acute significant GI blood loss acute anemia due to blood loss - s/p angiogram -continue IV protonix -s/p PRBC transfusion; continue to monitor H/H. -currently on liquid diet -awaiting GI f/u and recommendations. Diverticulosis Hx of Internal hemorrhoids -Appreciate GI input. acute kidney injury; improved. Full code. SCDs. will keep in ICU today.
--- NOTE | 2018-05-06 09:26 | IR ---
EXAM DATE: 05/05/2018 6:54 PM EST AGE/SEX: 78 years / Male INDICATIONS: Patient presents with GI bleed in need of angiogram. CLINICAL DATA: This is the patient's initial encounter. Patient reports that signs and symptoms have been present for 1 day and indicates a pain score of 0/10. MEDICAL/SURGICAL HISTORY: Hypertension. Hypercholesterolemia. Diverticulosis. Internal hemor rhoids Prostate surgery COMPARISON: No prior exams available for comparison. FLUORO TIME (min): 13.6 IMAGE SERIES: 8 ACCESS SITE: Right femoral artery SEDATION TIME (min): 30 CONTRAST (cc): 60cc Visipaque (iodixanol) MEDICATION(S): 0.5mg midazolam (Versed) IV ; ; ; ; DEVICE(S): Right common femoral artery Syvek pad ; ; ; ; ; ; . . PROCEDURE : 1. Ultrasound-guided puncture of the access site. 2. Conscious sedation with continuous EKG and Oximetry monitoring. 3. Angiography of the superior mesenteric artery 4. Angiography of the inferior mesenteric artery The risks, benefits and alternatives to the procedure were explained and verbal and written consent w as obtained. The site was prepped in sterile fashion. Full sterile technique was used, including ca p, mask, sterile gloves and gown and a large sterile sheet. Hand hygiene and 2% chlorhexidine and/or betadine/alcohol prep was utilized per protocol for cutaneous antisepsis. Sterile gel and sterile p robe cover were utilized for ultrasound guidance. The skin and subcutaneous tissues were infiltrated with local anesthetic solution. With ultrasound and fluoroscopic guidance the selected artery was punctured and a vascular sheath was placed. A hook catheter was placed in the superior mesenteric artery and AP and oblique views were obtained d emonstrating no evidence of acute gastric intestinal bleeding. The catheter was next placed in the in ferior mesenteric artery were again multiple oblique views were performed demonstrating no evidence o f acute gastric intestinal bleeding. The puncture site was closed with manual pressure and hemostasis was obtained. The patient tolerated the procedure well and there were no complications. Conscious sedation was performed with the prescribed dosages and duration as above in the presence of an independent trained radiology nurse to assist in the monitoring of the patient. EKG and oximetry remained stable throughout the procedure. CONCLUSION: 1. No evidence of acute gastrointestinal bleed. Electronically signed by: Kevin Araya MD 05/06/2018 9:25 AM EST
--- NOTE | 2018-05-06 09:50 | P.PNGI ---
Subjective Interval history: No bleeding since noon yesterday. Not surprisingly, the mesenteric angiogram last evening revealed no active bleeding. He feels well. Tolerating a clear liquid diet. This is his third diverticular bleed in three years. He has hamlin- diverticulosis. Physical Exam Vital signs: Vital Signs 05/05/18 12:00 05/05/18 12:04 05/05/18 14:50 Temperature 98.0 F 96.6 F L Pulse Rate 91 H 89 120 H Respiratory Rate 16 24 Blood Pressure 129/69 95/60 L Pulse Oximetry 95 98 05/05/18 15:30 05/05/18 17:02 05/05/18 17:14 Temperature 98.6 F Pulse Rate 120 H 111 H Respiratory Rate 20 20 Blood Pressure 140/79 123/74 116/75 Pulse Oximetry 05/05/18 19:02 05/05/18 20:00 05/05/18 20:01 Temperature 99.7 F H 99.7 F H Pulse Rate 103 H 90 90 Respiratory Rate 24 19 21 Blood Pressure 132/70 124/76 124/76 Pulse Oximetry 99 98 98 05/05/18 20:15 05/05/18 20:27 05/05/18 21:00 Temperature 100.0 F H Pulse Rate 89 95 H 87 Respiratory Rate 34 H 23 10 L Blood Pressure 146/75 H 146/75 H 132/70 Pulse Oximetry 98 98 97 05/05/18 21:56 05/05/18 22:00 05/05/18 22:10 Temperature 98.4 F 98.4 F Pulse Rate 89 88 87 Respiratory Rate 11 L 16 17 Blood Pressure 132/70 120/59 L 120/70 Pulse Oximetry 93 L 93 L 94 L 05/05/18 23:00 05/06/18 00:00 05/06/18 01:00 Temperature 99.1 F Pulse Rate 87 86 84 Respiratory Rate 19 7 L 18 Blood Pressure 120/70 122/60 131/60 Pulse Oximetry 94 L 94 L 94 L 05/06/18 02:00 05/06/18 03:00 05/06/18 04:00 Temperature 99.1 F Pulse Rate 82 89 86 Respiratory Rate 16 17 16 Blood Pressure 101/52 L 137/63 138/70 Pulse Oximetry 95 94 L 93 L 05/06/18 05:00 05/06/18 06:00 Temperature Pulse Rate 83 80 Respiratory Rate 17 15 Blood Pressure 143/65 H 119/63 Pulse Oximetry 96 93 L Intake & Output 05/05/18 05/06/18 05/06/18 18:59 06:59 18:59 Intake Total 2850 / 2850 2054 Output Total 300 / 300 1450 / 1450 Balance 2550 / 2550 605 / 605 Weight 100 kg Intake: IV 2049 1000 / 1000 NS Inj 1,000 ML @ 100 mls/hr IV 1000 / 1000 1000 / 1000 .CONT .Q10H SMITH Rx#:[id number] NS Inj 1,000 ML @ 2000 mls/hr 1000 / 1000 IV.SIG Q30M SMITH Rx#:[id number] NS Inj 250 ML @ 15 mls/hr IV. 50 / 50 SIG ONCE SMITH Rx#:[id number] Oral 240 / 240 Other Rbc As-3 Leukoreduced Unit 5 / 5 [id number] Rbc As-3 Leukoreduced Unit 10 / 10 [id number] Intake (Blood Product) Amt 800 / 800 800 / 800 Rbc As-3 Leukoreduced Unit 400 / 400 [id number] Rbc As-3 Leukoreduced Unit 400 / 400 [id number] Rbc As-3 Leukoreduced Unit 400 / 400 [id number] Rbc As-3 Leukoreduced Unit 400 / 400 [id number] Output: Urine 300 / 300 1450 / 1450 Stool 0 / 0 Other: Other Intake Source Rbc As-3 Leukoreduced Unit Saline Solution [id number] Rbc As-3 Leukoreduced Unit Saline Solution [id number] # Voids 2 3 Date of Last Bowel Movement 05/04/18 - Constitutional no acute distress - Routine HEENT Exam Eye: Present: EOMI - Routine Abdominal Exam Present: soft, normoactive bowel sounds Comments: Non-tender. - Routine Neurological Exam Present: alert, oriented X3 Results - Labs CBC & Chem 7: 05/06/18 05:12 05/06/18 05:12 Laboratory Results - last 24 hr 05/04/18 05/05/18 05/05/18 17:36 13:00 14:22 CBC w Diff Auto diff final WBC 8.3 RBC 2.29 L Hgb 7.2 L Hct 21.6 L MCV 89.6 MCH 31.5 MCHC 35.2 RDW 13.5 Plt Count 147 L MPV 8.5 Prelim Diff (Auto) Neut % (Auto) 68.0 Lymph % (Auto) 21.8 [place] % (Auto) 9.1 H Eos % (Auto) 0.6 Baso % (Auto) 0.5 Neut # (Auto) 5.7 Lymph # (Auto) 1.8 [place] # (Auto) 0.8 Eos # (Auto) 0.0 Baso # (Auto) 0.0 WBC Differential . Diff Scan Differential Comment . Platelet Estimate Platelet Morphology Sodium Potassium Chloride Carbon Dioxide Anion Gap BUN Creatinine Estimated GFR Random Glucose Calcium Prot Corrected Calcium Total Protein Urine Color Yellow Urine Clarity Clear Urine pH 6.0 Ur Specific [place] 1.025 Urine Protein Negative Urine Glucose (UA) Negative Urine Ketones 40 H Urine Occult Blood Negative Urine Nitrate Positive H Urine Bilirubin Negative Urine Urobilinogen 0.2 Ur Leukocyte Esterase Trace H Urine RBC 0-3 Urine WBC 0-5 Amorphous Sediment Few H Urine Bacteria Moderate H Hyaline Casts 0-3 Urine Mucus Few H Micro UA Comment Culture indicated Ur Microscopic Review Microscopic reviewed Urine Culture Comments Culture indicated Nasal Screen MRSA (PCR) MTS Gel Crossmatch See Detail 05/05/18 05/05/18 05/06/18 16:50 19:15 05:12 CBC w Diff WBC 11.5 H RBC 3.19 L Hgb 9.7 L D Hct 27.3 L MCV 85.9 D MCH 30.4 MCHC 35.5 RDW 18.3 H D Plt Count 91 L D MPV 8.4 Prelim Diff (Auto) Slide review pending Neut % (Auto) 66.4 Lymph % (Auto) 20.2 [place] % (Auto) 12.8 H Eos % (Auto) 0.3 Baso % (Auto) 0.3 Neut # (Auto) 7.6 Lymph # (Auto) 2.3 [place] # (Auto) 1.5 H Eos # (Auto) 0.0 Baso # (Auto) 0.0 WBC Differential . Diff Scan Auto diff confirmed Differential Comment . Platelet Estimate Low L Platelet Morphology Normal Sodium Potassium Chloride Carbon Dioxide Anion Gap BUN Creatinine Estimated GFR Random Glucose Calcium Prot Corrected Calcium Total Protein Urine Color Urine Clarity Urine pH Ur Specific [place] Urine Protein Urine Glucose (UA) Urine Ketones Urine Occult Blood Urine Nitrate Urine Bilirubin Urine Urobilinogen Ur Leukocyte Esterase Urine RBC Urine WBC Amorphous Sediment Urine Bacteria Hyaline Casts Urine Mucus Micro UA Comment Ur Microscopic Review Urine Culture Comments Nasal Screen MRSA (PCR) Not detected MTS Gel Crossmatch See Detail 05/06/18 05:12 CBC w Diff WBC RBC Hgb Hct MCV MCH MCHC RDW Plt Count MPV Prelim Diff (Auto) Neut % (Auto) Lymph % (Auto) [place] % (Auto) Eos % (Auto) Baso % (Auto) Neut # (Auto) Lymph # (Auto) [place] # (Auto) Eos # (Auto) Baso # (Auto) WBC Differential Diff Scan Differential Comment Platelet Estimate Platelet Morphology Sodium 144 Potassium 3.8 Chloride 112 H Carbon Dioxide 24.0 Anion Gap 8 BUN 18 Creatinine 1.24 Estimated GFR 56 L Random Glucose 91 Calcium 6.6 L* D Prot Corrected Calcium 8.1 L Total Protein 4.3 L D Urine Color Urine Clarity Urine pH Ur Specific [place] Urine Protein Urine Glucose (UA) Urine Ketones Urine Occult Blood Urine Nitrate Urine Bilirubin Urine Urobilinogen Ur Leukocyte Esterase Urine RBC Urine WBC Amorphous Sediment Urine Bacteria Hyaline Casts Urine Mucus Micro UA Comment Ur Microscopic Review Urine Culture Comments Nasal Screen MRSA (PCR) MTS Gel Crossmatch Microbiology 05/04/18 17:36 Clean Catch Urine Urine Culture - Preliminary Staphylococcus coag negative - Imaging Impressions Mesenteric Arteriogram 05/05/18 00:00 CONCLUSION: 1. No evidence of acute gastrointestinal bleed. - Procedures None Assessment and Plan (1) GI (gastrointestinal bleed) Status: Acute Code(s): K92.2 - Gastrointestinal hemorrhage, unspecified (2) Diverticulosis Status: Acute Code(s): K57.90 - Diverticulosis of intestine, part unspecified , without perforation or abscess without bleeding - Plan IMP: Recurrent painless hematochezia, this is the most severe attack, in three years. He has hamlin-diverticulosis, so it's unclear which side of the colon may have bled. We discussed the importance of a high fiber diet: 25gm/day with consumption of at least 2 quarts of liquid/day. If he bleeds again, significantly, we'll order a stat mesenteric angiogram during daytime hours. If it occurs after hours we'll order a stat CT mesenteric angiogram. We may advance his diet. (1) GI (gastrointestinal bleed) Qualifiers: GI bleed type/associated pathology: unspecified gastrointestinal hemorrhage type Qualified Code(s): K92.2 - Gastrointestinal hemorrhage, unspecified (2) Diverticulosis Qualifiers: Diverticulosis site: diverticulosis of large intestine
[2018-05-06] MEDS: Sod Chloride 0.9% Inj 1,000 ML IV.CONT SCH ×2 (09:59→15:00)
--- NOTE | 2018-05-06 13:39 | P.PNCS ---
Subjective Interval history: afebrile, VSS UO good no BRB Objective Result Diagrams: 05/06/18 05:12 05/06/18 05:12 Objective Remarks: PE alert Abd - soft, non-tender, no mass Rectal - no BRB Assessment and Plan - Plan Imp: GI bleed - stable adv diet, decr IVF OOB hopefully, no more active bleeding - discussed with pt, he is taking a cruise next week and is nervous about rebleeding
--- NOTE | 2018-05-06 14:01 | MB ---
cc: Theo Mejia MD, Andrew H MD Moulis,Maurisio NICE DATE: 05/05/2018 REASON FOR CONSULTATION: GI bleed. HISTORY OF PRESENT ILLNESS: Mr. Cortez is a 78-year-old male followed by Dr. Waite, who has had a history of diverticular disease and a couple of episodes of GI bleeding. He also has had an episode of Clostridium difficile colitis in the past. The patient had been doing well, noticing the onset of what he describes as darker, maroon stool and then lots of bright red blood several times at home. He had several toilet bowls full of blood and became a little lightheaded and came to the emergency room for evaluation. In the ER, he was found to have a significant amount of bleeding and was admitted down in [place] for stabilization and further evaluation. He did have a CT scan which showed extensive diverticular disease, but no sign of any acute inflammation. Last colonoscopy showed significant diverticular disease throughout the entire colon, but no evidence of any polyps or bleeding sites. His hemorrhoids have been pretty benign. Since admission, he has dropped his hemoglobin from 12.2 down to 7.4 and is in the process of getting a packed red blood cell transfusion. He was transferred up to [facility] for emergent angiogram and hopefully embolization of any bleeding sites. He denies any abdominal pain. No nausea or vomiting. Denies any fever. No abdominal surgery. PAST MEDICAL HISTORY: Please see his history and physical and multiple consults for more complete past medical and surgical history. PERTINENT PHYSICAL EXAMINATION: GENERAL: Very pleasant male in no acute distress. HEENT: Remarkable for slightly pale, dry membranes. Nonicteric sclerae. NECK: Supple without gross adenopathy. CHEST: Relatively clear, symmetrical expanding. HEART: Tachycardia. ABDOMEN: Very soft and benign. Very little tympany. No rebound, guarding, or masses noted. EXTREMITIES: Showed no cyanosis or clubbing and trace pedal edema. LABORATORY STUDIES: Hemoglobin initially 12.0, presently 7.2, platelet count was 147,000. Coagulation studies were normal. Chemistries significant for a BUN of 18 and a creatinine of 1.2. CT scan was reviewed showing extensive diverticular disease, but no evidence of bleeding was noted. IMPRESSION: A 78-year-old male with several episodes of gastrointestinal bleeding. This one seems to be the worst and causing some hypotension and significant tachycardia. Since transfer from [place], he appears to have stabilized a little bit, but angiogram is presently in the process and would proceed with the angiogram to hopefully embolize any potential bleeding sources. If he does not stop bleeding, would be optimum to try to localize the bleeding prior to considering a segmental resection. If no localization of the bleeding, a subtotal colectomy might be indicated, depending upon transfusion requirements and continued nature of the bleeding. Discussed at length with the patient and will follow him carefully after the arteriogram. MD YUMI Tee/bharath , 01:36 PM , 01:49 PM
[2018-05-06] MEDS ORDERED: Zolpidem Tartrate 5 MG Tablet PO PRN (21:00)
[2018-05-07 05:50] LABS: Hematocrit 24.6 % (39.0-51.0); Hemoglobin 8.8 gm/dL (13.0-17.0); Mean Corpuscular HGB Conc 35.6 % (32.0-36.0); Mean Corpuscular Hemoglobin 30.8 pg (27.0-34.0); Mean Corpuscular Volume 86.6 fL (80.0-100.0); Mean Platelet Volume 8.3 fL (7.0-11.0); Platelet Count 100 th/mm3 (150-450); Red Blood Count 2.85 mil/mm3 (4.50-5.90); Red Cell Distribution Width 18.6 % (11.6-17.2); White Blood Count 9.9 th/mm3 (4.0-11.0)
--- NOTE | 2018-05-07 06:41 | P.PNGI ---
Subjective Interval history: No complaints. He ate a regular diet last night. No bowel movements/bleeding at all. Physical Exam Vital signs: Vital Signs 05/06/18 07:00 05/06/18 08:00 05/06/18 08:52 Temperature 99 F Pulse Rate 82 86 82 Respiratory Rate 16 19 16 Blood Pressure 148/68 H 152/73 H Pulse Oximetry 94 L 96 97 05/06/18 08:57 05/06/18 09:00 05/06/18 10:00 Temperature Pulse Rate 82 83 81 Respiratory Rate 18 23 23 Blood Pressure 147/73 H 145/77 H 142/67 H Pulse Oximetry 97 98 98 05/06/18 11:00 05/06/18 12:00 05/06/18 12:01 Temperature 98.1 F Pulse Rate 73 74 72 Respiratory Rate 15 20 19 Blood Pressure 120/64 135/63 Pulse Oximetry 94 L 96 96 05/06/18 13:00 05/06/18 14:00 05/06/18 15:00 Temperature Pulse Rate 74 70 84 Respiratory Rate 17 20 10 L Blood Pressure 135/68 137/72 143/67 H Pulse Oximetry 96 97 96 05/06/18 16:00 05/06/18 17:00 05/06/18 17:01 Temperature 98.2 F Pulse Rate 75 78 75 Respiratory Rate 16 23 20 Blood Pressure 121/61 151/68 H Pulse Oximetry 98 97 97 05/06/18 18:00 05/06/18 20:00 05/07/18 00:00 Temperature 98.4 F 98.0 F Pulse Rate 77 71 68 Respiratory Rate 26 H 18 13 Blood Pressure 161/72 H 137/71 134/72 Pulse Oximetry 97 96 94 L 05/07/18 04:00 Temperature 98 F Pulse Rate 70 Respiratory Rate 18 Blood Pressure 138/73 Pulse Oximetry 100 Intake & Output 05/06/18 05/06/18 05/07/18 06:59 18:59 06:59 Intake Total 2055 / 2055 1855 / 1855 Output Total 1450 / 1450 1525 / 1525 Balance 605 / 605 330 / 330 Weight 100 kg Intake: IV 1000 / 1000 1615 / 1615 NS Inj 1,000 ML @ 60 mls/hr IV. 1000 / 1000 1615 / 1615 CONT .[id number] [facility] Rx#: [id number] Oral 240 / 240 240 / 240 Other Rbc As-3 Leukoreduced Unit 5 / 5 [id number] Rbc As-3 Leukoreduced Unit [id number] Intake (Blood Product) Amt 800 / 800 Rbc As-3 Leukoreduced Unit 400 / 400 [id number] Rbc As-3 Leukoreduced Unit 400 / 400 [id number] Output: Urine 1450 / 1450 1525 / 1525 Stool 0 / 0 0 / 0 Other: Other Intake Source Rbc As-3 Leukoreduced Unit Saline Solution [id number] Rbc As-3 Leukoreduced Unit Saline Solution [id number] # Voids 3 7 Date of Last Bowel Movement 05/04/18 05/04/18 05/04/18 - Constitutional no acute distress - Routine HEENT Exam Eye: Present: EOMI - Detailed Abdominal Exam Comments: Good bowel sounds, soft, non-tender; no hepatosplenomegaly - Routine Neurological Exam Present: alert, oriented X3 Results - Labs CBC & Chem 7: 05/07/18 04:28 05/06/18 05:12 Laboratory Results - last 24 hr 05/04/18 05/06/18 05/07/18 17:36 05:12 04:28 WBC 9.9 RBC 2.85 L Hgb 8.8 L Hct 24.6 L MCV 86.6 MCH 30.8 MCHC 35.6 RDW 18.6 H Plt Count 100 L MPV 8.3 WBC Differential . Diff Scan Auto diff confirmed Platelet Estimate Low L Platelet Morphology Normal Urine Color Yellow Urine Clarity Clear Urine pH 6.0 Ur Specific [place] 1.025 Urine Protein Negative Urine Glucose (UA) Negative Urine Ketones 40 H Urine Occult Blood Negative Urine Nitrate Positive H Urine Bilirubin Negative Urine Urobilinogen 0.2 Ur Leukocyte Esterase Trace H Urine RBC 0-3 Urine WBC 0-5 Amorphous Sediment Few H Urine Bacteria Moderate H Hyaline Casts 0-3 Urine Mucus Few H Micro UA Comment Culture indicated Ur Microscopic Review Microscopic reviewed Urine Culture Comments Culture indicated Microbiology 05/04/18 17:36 Clean Catch Urine Urine Culture - Preliminary Staphylococcus coag negative - Imaging Impressions Mesenteric Arteriogram 05/05/18 00:00 CONCLUSION: 1. No evidence of acute gastrointestinal bleed. - Procedures None Assessment and Plan (1) GI (gastrointestinal bleed) Status: Acute Code(s): K92.2 - Gastrointestinal hemorrhage, unspecified (2) Diverticulosis Status: Acute Code(s): K57.90 - Diverticulosis of intestine, part unspecified , without perforation or abscess without bleeding - Plan IMP: Recurrent diverticular bleeding; this has stopped again without identification of the site of bleed in this patient with hamlin-diverticulosis. Hgb has dropped a little since yesterday, possibly dilutional . His platelets are low. He'll follow up with Dr. Mary to evaluate this. We reviewed the importance of a high fiber diet with lots of fluid daily. OK to d/c home from GI standpoint. (1) GI (gastrointestinal bleed) Qualifiers: GI bleed type/associated pathology: unspecified gastrointestinal hemorrhage type Qualified Code(s): K92.2 - Gastrointestinal hemorrhage, unspecified (2) Diverticulosis Qualifiers: Diverticulosis site: diverticulosis of large intestine
[2018-05-07] MEDS: Chlorhexidine Gluconate 2% 1 Pack (2 Cloths) TOPICAL SCH (06:55)
[2018-05-07] MEDS: Pantoprazole Inj 40 MG Vial IV.PUSH SCH (06:55)
--- NOTE | 2018-05-07 08:50 | P.DS ---
Date of admission: 05/05/18 14:06 Primary care physician: Sussy Mary MD Brief History from admission: This is a 78-year-old male with a history of diverticulosis, internal hemorrhoids, hypertension, hyperlipidemia and C. difficile. Patient complains of bright red blood per rectum. He thinks that his hemorrhoid burst yesterday because he ate too many peanut M&Ms a few days ago. Since yesterday he has multiple bloody bowel movements with intermittent crampy abdominal discomfort and weakness. Denies dizziness, chest pain, shortness of breath and palpitations per. 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 Patient has history of C. difficile with no recent antibiotic use. Back in April 2017 he underwent flex sigmoidoscopy showing diverticular disease and internal hemorrhoids when he had rectal bleeding. CT of the abdomen pelvis showed uncomplicated colonic diverticulosis. All other systems reviewed negative DS: Summary Hospital Course: Acute significant GI blood loss acute anemia due to blood loss - s/p angiogram with no evidence of bleeding. -s/p PRBC transfusion with improved and fairly stable H/H. -evaluated by GI and colorectal surgery. -cleared by GI for discharge; f/u as outpatient. Diverticulosis Hx of Internal hemorrhoids -Appreciate GI input. Full code. SCDs. - Time Spent with Patient Total time spent providing and/or coordinating discharge services: Less than 30 minutes - Quality: VTE Deep Vein Thrombosis/Pulmonary Embolism Present on Admission: No Exam Vital signs: Vital Signs 05/06/18 08:52 05/06/18 08:57 05/06/18 09:00 Temperature Pulse Rate 82 82 83 Respiratory Rate 16 18 23 Blood Pressure 147/73 H 145/77 H Pulse Oximetry 97 97 98 05/06/18 10:00 05/06/18 11:00 05/06/18 12:00 Temperature 98.1 F Pulse Rate 81 73 74 Respiratory Rate 23 15 20 Blood Pressure 142/67 H 120/64 Pulse Oximetry 98 94 L 96 05/06/18 12:01 05/06/18 13:00 05/06/18 14:00 Temperature Pulse Rate 72 74 70 Respiratory Rate 19 17 20 Blood Pressure 135/63 135/68 137/72 Pulse Oximetry 96 96 97 05/06/18 15:00 05/06/18 16:00 05/06/18 17:00 Temperature 98.2 F Pulse Rate 84 75 78 Respiratory Rate 10 L 16 23 Blood Pressure 143/67 H 121/61 Pulse Oximetry 96 98 97 05/06/18 17:01 05/06/18 18:00 05/06/18 20:00 Temperature 98.4 F Pulse Rate 75 77 71 Respiratory Rate 20 26 H 18 Blood Pressure 151/68 H 161/72 H 137/71 Pulse Oximetry 97 97 96 05/07/18 00:00 05/07/18 04:00 Temperature 98.0 F 98 F Pulse Rate 68 70 Respiratory Rate 13 18 Blood Pressure 134/72 138/73 Pulse Oximetry 94 L 100 Intake & Output 05/06/18 05/07/18 05/07/18 18:59 06:59 18:59 Intake Total 1855 / 1855 300 / 300 Output Total 1525 / 1525 0 / 0 Balance 330 / 330 300 / 300 Weight 92 kg Intake: IV 1615 / 1615 NS Inj 1,000 ML @ 60 mls/hr IV. 1615 / 1615 CONT .[id number] [facility] Rx#: [id number] Oral 240 / 240 300 / 300 Output: Urine 1525 / 1525 Stool 0 / 0 0 / 0 Urine/Stool Mix 0 / 0 Other: Post Void Residual 1,300 # Voids 7 Date of Last Bowel Movement 05/04/18 05/05/18 # Bowel Movements 0 # Incontinent Bowel Movements 0 - Constitutional no acute distress - Routine Respiratory Exam Present: CTA bilaterally - Routine Cardiovascular Exam Present: RRR - Routine Abdominal Exam Present: soft - Routine Extremities Exam Comments: no pedal edema. - Routine Neurological Exam Present: alert, oriented X3 Results Procedures completed during hospitalization: angiogram Labs on day of discharge: Labs from last 24 hours 05/07/18 05/04/18 04:28 17:36 WBC 9.9 RBC 2.85 L Hgb 8.8 L Hct 24.6 L MCV 86.6 MCH 30.8 MCHC 35.6 RDW 18.6 H Plt Count 100 L MPV 8.3 Urine Color Yellow Urine Clarity Clear Urine pH 6.0 Ur Specific [place] 1.025 Urine Protein Negative Urine Glucose (UA) Negative Urine Ketones 40 H Urine Occult Blood Negative Urine Nitrate Positive H Urine Bilirubin Negative Urine Urobilinogen 0.2 Ur Leukocyte Esterase Trace H Urine RBC 0-3 Urine WBC 0-5 Amorphous Sediment Few H Urine Bacteria Moderate H Hyaline Casts 0-3 Urine Mucus Few H Micro UA Comment Culture indicated Ur Microscopic Review Microscopic reviewed Urine Culture Comments Culture indicated Preliminary micro results at discharge 05/04/18 17:36 Urine Culture - Preliminary Clean Catch Urine Staphylococcus coag negative - Impressions ITS Impressions Abdomen/Pelvis CT 05/04/18 09:44 CONCLUSION: 1. Uncomplicated colonic diverticulosis. 2. No evidence of ileus or obstruction. 3. Large left renal cyst. 4. Left nephrolithiasis. 5. Prostatomegaly. Mesenteric Arteriogram 05/05/18 00:00 CONCLUSION: 1. No evidence of acute gastrointestinal bleed. Discharge Plan - Discharge Disposition Patient Disposition: Discharge Home - Discharge Condition Condition: Stable - Physicians Team Primary Care Provider: Sussy Mary Attending Provider: Ирина Morrow Other Providers: Cabrera Baker MD ; Theo Mejia MD
[2018-05-07 11:48] LABS: Hematocrit 26.9 % (39.0-51.0); Hemoglobin 9.5 gm/dL (13.0-17.0); Mean Corpuscular HGB Conc 35.4 % (32.0-36.0); Mean Corpuscular Hemoglobin 31.1 pg (27.0-34.0); Mean Corpuscular Volume 87.7 fL (80.0-100.0); Mean Platelet Volume 8.1 fL (7.0-11.0); Platelet Count 115 th/mm3 (150-450); Red Blood Count 3.06 mil/mm3 (4.50-5.90); Red Cell Distribution Width 18.4 % (11.6-17.2); White Blood Count 9.3 th/mm3 (4.0-11.0)
[2018-05-07 11:55] VITALS: BP 144/69; PULSE 80; RESP 17; O2SAT 95
[2018-05-07 12:08] VITALS: TEMP 98.1
[2018-05-07] MEDS: Sod Chloride 0.9% Inj 1,000 ML IV.CONT SCH (12:39)
--- NOTE | 2018-05-07 21:55 | P.PNCS ---
Subjective Interval history: afebrile, VSS UO good no active bleeding serena PO Objective Result Diagrams: 05/07/18 11:36 05/06/18 05:12 Objective Remarks: PE alert Abd - soft, non-tender, no mass Rectal - no BRB Assessment and Plan - Plan Imp: GI bleed - stable adv diet, decr IVF OOB hopefully, no more active bleeding - discussed with pt, he is taking a cruise next week and is nervous about rebleeding will DC home if Hgb stable
== END 2018-05-07 12:20 | disposition home or self-care (01) ==
LOC: PHEDA 09:20 → PHED 09:20 → PHICU 13:48 → PH3 05-05 02:33 → HIMC 05-05 16:40
PROVIDERS: ADMIT Internal Medicine; ATTEND Internal Medicine

== ENCOUNTER 2018-07-08 09:49 | Inpatient (IN) ==
[2018-07-08] MEDS ORDERED: Sod Chloride 0.9% Inj 1,000 ML IV.SIG ONE (10:53)
--- NOTE | 2018-07-08 11:00 | ED ---
HPI General Chief complaint: GI Bleed Stated complaint: gi bleed Time Seen by Provider: 07/08/18 10:40 History of Present Illness HPI Narrative: This patient complains of bright red rectal bleeding. It started at 7 AM this morning. He is had 3 separate episodes of it. He does take Eliquis for history of the left arm DVT. This patient also reports he was admitted in April for GI bleed requiring 4 units of blood transfusion. He has history of diverticulosis and diverticulitis. He denies any hematemesis or nausea or vomiting or abdominal pain or presyncopal symptoms. He does complain of some generalized weakness. Duration 4 hours. No alleviating factors. Symptoms exacerbated by his blood thinner. Related Data Home Medications Medication Instructions Recorded Confirmed amlodipine 5 mg PO HS 05/04/18 07/08/18 coQ10 (ubiquinol) 300 mg PO DAILY 05/04/18 07/08/18 lactobacillus combination no.4 3,000 mmu cells PO DAILY 05/04/18 07/08/18 [Probiotic] multivitamin 1 tab PO DAILY 05/04/18 07/08/18 pantoprazole 40 mg PO DAILY 05/04/18 07/08/18 rosuvastatin [Crestor] 10 mg PO HS 05/04/18 07/08/18 tadalafil [Cialis] 5 mg PO DAILY 05/04/18 07/08/18 testosterone cypionate 0.5 ml IM DIRECTED 05/04/18 07/08/18 zolpidem [Ambien] 5 mg PO HS PRN 05/04/18 07/08/18 apixaban [Eliquis] 5 mg PO BID 07/08/18 07/08/18 Allergies Allergy/AdvReac Type Severity Reaction Status Date / Time Sulfa (Sulfonamide Allergy Unknown Unknown Verified 07/08/18 10:36 Antibiotics) Review of Systems ROS: all other systems reviewed are negative [facility] Medical History Medical History Bleeding hemorrhoid (Acute) Clostridium difficile infection (Acute) DVT of left axillary vein, acute (Acute) Diverticulitis (Acute) High cholesterol (Acute) History of GI bleed (Acute) Hypertension (Acute) Surgical History Surgical History History of prostate surgery (Acute) S/P surgery on nasal septum (Acute) Social History Social History Substance History: No History of Abuse Second Hand Smoke Exposure: No Smoking Status: Never smoker How Often Do You Have a Drink Containing Alcohol: 2 to 4 times a month Recent Travel in [facility] within the Last 8 Weeks: No Recent Out of Country Travel within the Last 8 Weeks: No Immunization History Tetanus Immunization: <5 Years Exam Narrative Exam Narrative: GENERAL: Well-nourished, well-developed patient in no apparent distress. SKIN: Focused skin assessment reveals no rash and nodules. Skin is Warm and dry. HEAD: Atraumatic. Normocephalic. EYES: Pupils equal and round. No scleral icterus. No injection or drainage. ENT: No nasal bleeding or discharge. Mucous membranes pink and moist. NECK: Trachea midline. No JVD. CARDIOVASCULAR: Regular rate and rhythm. No murmur appreciated. RESPIRATORY: No accessory muscle use. Clear to auscultation. Breath sounds equal bilaterally. GASTROINTESTINAL: Abdomen soft, non-tender, nondistended. Hepatic and splenic margins not palpable. MUSCULOSKELETAL: No obvious deformities. No clubbing. No cyanosis. No edema. NEUROLOGICAL: Awake and alert. No obvious cranial nerve deficits. Motor grossly within normal limits. Normal speech. PSYCHIATRIC: Appropriate mood and affect; insight and judgment normal. Rectal: No obvious external hemorrhoid or fissure. Course Initial Documented Vital Signs Temperature 97.2 F L 07/08/18 09:52 Pulse Rate 102 H 07/08/18 09:52 Respiratory Rate 20 07/08/18 09:52 Blood Pressure 108/63 07/08/18 09:52 Pulse Oximetry 97 07/08/18 09:52 Last Documented Vital Signs Temperature 97.2 F L 07/08/18 09:52 Pulse Rate 76 07/08/18 10:32 Respiratory Rate 16 07/08/18 10:32 Blood Pressure 137/86 07/08/18 10:32 Pulse Oximetry 100 07/08/18 10:45 Medical Decision Making [facility] Narrative Medical decision making narrative: 78-year-old male on Eliquis complaining of 4 hours of bright red rectal bleeding. I placed 2 18-gauge IVs. His initial vital signs are normal. Sending lab studies including type and screen. He has a soft benign nontender abdomen. I will observe the patient for several hours. He has had no further bleeding. His hemoglobin is healthy at 15+. His vitals are normal. He wants to go home. I reviewed the case in detail with his GI coverage who is Dr. Avendano. He recommends discharge home and follow-up with bolus. Patient will hold their Eliquis for the time being. Medical Screen Exam Complete: Yes Emergency Medical Condition: Yes Differential Diagnosis Differential Diagnosis: Diverticular bleed, AV malformation, side effect of Eliquis Medical Records Medical records reviewed: Yes I reviewed the patient's medical records. Reviewed his April 2018 GI bleed admission Lab Data Lab results reviewed: Yes I reviewed the patient's lab results. Lab results narrative: Labs are normal Result diagrams: 07/08/18 10:45 07/08/18 10:45 Lab Results 07/08/18 07/08/18 07/08/18 Range/Units 10:45 10:45 10:45 WBC 6.3 (4.0-11.0) th/mm3 RBC 4.41 L (4.50-5.90) mil/mm3 Hgb 12.7 L (13.0-17.0) gm/dL Hct 39.1 (39.0-51.0) % MCV 88.5 (80.0-100.0) fL MCH 28.7 (27.0-34.0) pg MCHC 32.5 (32.0-36.0) % RDW 15.1 (11.6-17.2) % Plt Count 243 (150-450) th/mm3 MPV 9.0 (7.0-11.0) fL Neut % (Auto) 62.5 (16.0-70.0) % Lymph % (Auto) 27.8 (9.0-44.0) % [place] % (Auto) 8.5 H (0.0-8.0) % Eos % (Auto) 0.4 (0.0-4.0) % Baso % (Auto) 0.8 (0.0-2.0) % Neut # (Auto) 3.9 (1.8-7.7) th/mm3 Lymph # (Auto) 1.7 (1.0-4.8) th/mm3 [place] # (Auto) 0.5 (0.0-0.9) th/mm3 Eos # (Auto) 0.0 (0.0-0.4) th/mm3 Baso # (Auto) 0.1 (0.0-0.2) th/mm3 WBC Differential . Differential Comment Auto diff final Sodium 140 (136-145) meq/L Potassium 3.9 (3.5-5.1) meq/L Chloride 109 H (98-107) meq/L Carbon Dioxide 21.0 (21.0-32.0) meq/L Anion Gap 10 (5-15) meq/L BUN 18 (7-18) mg/dL Creatinine 1.25 (0.60-1.30) mg/dL Estimated GFR 56 L (>89) mL/min Random Glucose 120 H (74-106) mg/dL Calcium 8.7 (8.5-10.1) mg/dL Total Bilirubin 0.4 (0.2-1.0) mg/dL AST 20 (15-37) U/L ALT 21 (12-78) U/L Alkaline Phosphatase 41 L (45-117) U/L Total Protein 7.2 (6.4-8.2) g/dL Albumin 4.0 (3.4-5.0) g/dL Blood Type B Positive Blood Type Recheck Not needed Antibody Screen Negative Discharge Plan Discharge Disposition Patient Disposition: 01 Discharge Home Discharge Order Discharge Orders: Discharge Order (Routine); Ordered 07/08/18 Ordered By: Reyes Avila Discharge Details Diagnosis: Lower gastrointestinal hemorrhage, Anticoagulated Physicians Team ED Provider: Reyes Avila Primary Care Provider: Sussy Mary Rxs /Orders / Referrals /Forms Prescriptions: No Action multivitamin Tablet 1 tab PO DAILY RF: 0 amlodipine 5 mg Tablet 5 mg PO HS RF: 0 pantoprazole 40 mg Tablet,Delayed Release (Dr/Ec) 40 mg PO DAILY RF: 0 zolpidem [Ambien] 5 mg Tablet 5 mg PO HS PRN (Reason: Insomnia) RF: 0 rosuvastatin [Crestor] 10 mg Tablet 10 mg PO HS RF: 0 tadalafil [Cialis] 5 mg Tablet 5 mg PO DAILY RF: 0 coQ10 (ubiquinol) 100 mg Capsule 300 mg PO DAILY RF: 0 lactobacillus combination no.4 [Probiotic] 3 billion cell Capsule 3,000 mmu cells PO DAILY RF: 0 testosterone cypionate 200 mg/mL Kit 0.5 ml IM DIRECTED RF: 0 apixaban [Eliquis] 5 mg Tablet 5 mg PO BID RF: 0 Discharge Instructions Additional Instructions: Follow-up with primary care and GI physician. Hold your blood thinner. Return if worse Discharge Interventions Interventions: Vital Signs Last Done: 07/08/18 10:32 Status ED Status: Ready for Discharge
[2018-07-08 11:31] LABS: Baso # (Auto) 0.1 th/mm3 (0.0-0.2); Baso % (Auto) 0.8 % (0.0-2.0); Eos % (Auto) 0.4 % (0.0-4.0); Hematocrit 39.1 % (39.0-51.0); Hemoglobin 12.7 gm/dL (13.0-17.0); Lymph # (Auto) 1.7 th/mm3 (1.0-4.8); Lymph % (Auto) 27.8 % (9.0-44.0); Mean Corpuscular HGB Conc 32.5 % (32.0-36.0); Mean Corpuscular Hemoglobin 28.7 pg (27.0-34.0); Mean Corpuscular Volume 88.5 fL (80.0-100.0); Mono # (Auto) 0.5 th/mm3 (0.0-0.9); Mono % (Auto) 8.5 % (0.0-8.0); Neut # (Auto) 3.9 th/mm3 (1.8-7.7); Neut % (Auto) 62.5 % (16.0-70.0); Platelet Count 243 th/mm3 (150-450); Red Blood Count 4.41 mil/mm3 (4.50-5.90); Red Cell Distribution Width 15.1 % (11.6-17.2); White Blood Count 6.3 th/mm3 (4.0-11.0)
[2018-07-08 11:43] LABS: Anion Gap 10 meq/L (5-15); Aspartate Aminotransferase 20 U/L (15-37); Blood Urea Nitrogen 18 mg/dL (7-18); Calcium 8.7 mg/dL (8.5-10.1); Chloride 109 meq/L (98-107); Glomerular Filtration Rate 56 mL/min (>89); Glucose,Random 120 mg/dL (74-106); Potassium 3.9 meq/L (3.5-5.1); Sodium 140 meq/L (136-145)
[2018-07-08 11:44] LABS: Alanine Aminotransferase 21 U/L (12-78)
[2018-07-08 11:47] LABS: Alkaline Phosphatase 41 U/L (45-117); Total Protein 7.2 g/dL (6.4-8.2)
[2018-07-08 16:49] LABS: Baso % (Auto) 0.4 % (0.0-2.0); Eos % (Auto) 0.3 % (0.0-4.0); Hematocrit 31.2 % (39.0-51.0); Hemoglobin 10.5 gm/dL (13.0-17.0); Lymph # (Auto) 1.7 th/mm3 (1.0-4.8); Lymph % (Auto) 22.4 % (9.0-44.0); Mean Corpuscular HGB Conc 33.7 % (32.0-36.0); Mean Corpuscular Hemoglobin 29.7 pg (27.0-34.0); Mean Corpuscular Volume 88.2 fL (80.0-100.0); Mean Platelet Volume 8.5 fL (7.0-11.0); Mono # (Auto) 0.6 th/mm3 (0.0-0.9); Mono % (Auto) 7.9 % (0.0-8.0); Neut # (Auto) 5.4 th/mm3 (1.8-7.7); Platelet Count 192 th/mm3 (150-450); Red Blood Count 3.54 mil/mm3 (4.50-5.90); Red Cell Distribution Width 14.9 % (11.6-17.2); White Blood Count 7.8 th/mm3 (4.0-11.0)
[2018-07-08] MEDS ORDERED: Acetaminophen 325 MG Tablet PO PRN (17:25)
[2018-07-08] MEDS ORDERED: Bisacodyl 10 MG Supp RECTAL PRN (17:25)
--- NOTE | 2018-07-08 18:06 | P.HP ---
History of Present Illness Service: [facility] Primary Care Physician: Sussy Mary MD Chief Complaint: dizziness, rectal bleeding History of Present Illness: This is a 78-year-old white male with significant past medical history of diverticular bleed and internal hemorrhoids, C. difficile, hypertension, recent diagnosis of left arm DVT on Eliquis for the last 6 weeks. Patient was admitted from May 04 - May 07 for diverticular bleed, he require 4 units of packed cells. 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 Mejia. He underwent mesenteric angiogram with no evidence of bleeding. He was discharged in stable condition and was to follow-up with GI, had an appointment for July. According to patient, approximately 6 weeks ago he noted red streaking and swelling on the left upper extremity, went to see Dr. Mary his PCP who ordered ultrasound and was found positive for DVT. He is not clear on the location of the DVT but the recommendation was for Eliquis, Dr. Mary spoke to Dr. Waite and he was started on Eliquis. According to patient, he had been doing well, was following a high-fiber diet. Today he went to the bathroom and had 2 large bloody BMs at home. After the second BM, he felt dizzy, no abdominal pain, no nausea, no vomiting. He presented to the emergency room, blood pressure was noted on the low side, 108/ 63 slightly tachycardic, heart rate 102. Initial hemoglobin was 12.[address] Avendano who was covering was contacted by the emergency room physician and his recommendation was to hold Eliquis and okay to discharge patient and he can follow-up as outpatient. Prior to leaving, patient had urge to have another bowel movement and was wheeled to the bathroom where he had a syncopal episode. He was brought back to the bed where he had another large bloody bowel movement. Repeat hemoglobin was 10.5, hematocrit 31.2. At this time, patient is resting comfortably. Denies any dizziness while laying in bed , no chest pain, no shortness of breath. He did not take the Eliquis today. Believes that his last colonoscopy was in 2014. Patient is admitted for further evaluation and treatment. - Diagnosis (1) GI (gastrointestinal bleed) (2) Hx of deep venous thrombosis (3) Anticoagulated (4) Syncope Inpatient Certification: I certify that the inpatient services were ordered in accordance with Medicare regulations governing the order. This includes certification that hospital inpatient services are reasonable and necessary and in the case of services not specified as inpatient-only under 42 CFR 419.22(n), that they are appropriately provided as inpatient services in accordance to with the 2-midnight benchmark under 43 CFR 412.3(e) Estimated Total Length of Stay (Days): 2 Plans for Post Hospital Care: Home Review of Systems All other systems reviewed negative except as stated in HPI PMFSH - History History Provided By: Patient - Medical History Medical History: Medical History (Last Reviewed 07/08/18 @ 18:04 by KIMBERLEE Forrester) DVT of left axillary vein, acute Diverticulitis History of GI bleed Bleeding hemorrhoid Clostridium difficile infection High cholesterol Hypertension - Surgical History Surgical History: Surgical History (Last Reviewed 07/08/18 @ 17:56 by KIMBERLEE Forrester) History of prostate surgery S/P surgery on nasal septum - Family History Family History: Family History (Last Updated 07/08/18 @ 17:56 by KIMBERLEE Forrester) Mother Congestive heart failure - Social History I have reviewed the patient's Social History: Yes - Tobacco History Second Hand Smoke Exposure: No Tobacco Use In Past 30 Days: No Smoking Status: Never smoker - Alcohol History How Often Do You Have a Drink Containing Alcohol: 2 to 4 times a month - Substance Use History Substance History: No History of Abuse - Travel History Recent Travel in the [place] Within the Last 8 Weeks: No Recent Travel Out of the Country Within the Last 8 Weeks: No - Immunization History Tetanus Immunization: <5 Years Medications and Allergies Active Medications: Active Medications Acetaminophen (Tylenol) 650 mg PO Q4H PRN PRN Reason: Temp > 100.4 Al Hydroxide/Mg Hydroxide (Milk Of Magnesia Liq) 30 ml PO Q12H PRN PRN Reason: Mild Constipation Amlodipine Besylate (Norvasc) 5 mg PO HS [facility] Bisacodyl (Dulcolax Supp) 10 mg RECTAL DAILY PRN PRN Reason: SEVERE CONSITIPATION Sodium Chloride (Ns Inj) 1,000 mls @ 75 mls/hr IV.CONT .[id number] [facility] Lactulose (Lactulose Liq) 30 ml PO DAILY PRN PRN Reason: SEVERE CONSITIPATION Non-Formulary Medication (Rosuvastatin) 10 mg PO HS [facility] Ondansetron HCl (Zofran Inj) 4 mg IV.PUSH Q6H PRN PRN Reason: NAUSEA OR VOMITING Pantoprazole Sodium (Protonix) 40 mg PO DAILY [facility] Sennosides (Senokot) 17.2 mg PO Q12H PRN PRN Reason: Moderate Constipation Sodium Chloride (Ns Flush) 2 ml IV.FLUSH PRN PRN PRN Reason: FLUSH AFTER USING IV ACCESS Last Admin: 07/08/18 11:10 Dose: 2 ml Sodium Chloride (Ns Flush) 2 ml IV.FLUSH BID [facility] Sodium Chloride (Ns Flush) 2 ml IV.FLUSH PRN PRN PRN Reason: FLUSH AFTER USING IV ACCESS Zolpidem Tartrate (Ambien) 5 mg PO HS PRN PRN Reason: INSOMNIA Allergies Allergy/AdvReac Type Severity Reaction Status Date / Time Sulfa (Sulfonamide Allergy Unknown Unknown Verified 07/08/18 10:36 Antibiotics) Home Medications Medication Instructions Recorded Confirmed Type amlodipine 5 mg PO HS 05/04/18 07/08/18 History coQ10 (ubiquinol) 300 mg PO DAILY 05/04/18 07/08/18 History lactobacillus combination no.4 3,000 mmu cells PO DAILY 05/04/18 07/08/18 History [Probiotic] multivitamin 1 tab PO DAILY 05/04/18 07/08/18 History pantoprazole 40 mg PO DAILY 05/04/18 07/08/18 History rosuvastatin [Crestor] 10 mg PO HS 05/04/18 07/08/18 History tadalafil [Cialis] 5 mg PO DAILY 05/04/18 07/08/18 History testosterone cypionate 0.5 ml IM DIRECTED 05/04/18 07/08/18 History zolpidem [Ambien] 5 mg PO HS PRN 05/04/18 07/08/18 History apixaban [Eliquis] 5 mg PO BID 07/08/18 07/08/18 History Exam Vital signs: Vital Signs 07/08/18 09:52 07/08/18 10:32 07/08/18 10:45 Temperature 97.2 F L Pulse Rate 102 H 76 Respiratory Rate 20 16 Blood Pressure 108/63 137/86 Pulse Oximetry 97 97 100 07/08/18 15:30 07/08/18 16:20 Temperature Pulse Rate 71 84 Respiratory Rate 15 23 Blood Pressure 107/59 L 158/74 H Pulse Oximetry 98 96 Intake & Output 07/07/18 07/08/18 07/08/18 18:59 06:59 18:59 Intake Total 1000 / 1000 Balance 1000 / 1000 Weight 90.718 kg Intake: IV 1000 / 1000 NS Inj 1,000 ML @ Wide Open IV. 1000 / 1000 SIG BOLUS ONE Rx#:[id number] Narrative: GENERAL: Well-nourished, well-developed patient in no apparent distress. SKIN: Warm and dry. HEAD: Atraumatic. Normocephalic. EYES: Pupils equal and round. No scleral icterus. No injection or drainage. ENT: No nasal bleeding or discharge. Mucous membranes pink and moist. NECK: Trachea midline. No JVD. CARDIOVASCULAR: Regular rate and rhythm. RESPIRATORY: No accessory muscle use. Clear to auscultation. Breath sounds equal bilaterally. GASTROINTESTINAL: Abdomen soft, non-tender, nondistended. Hepatic and splenic margins not palpable. MUSCULOSKELETAL: Extremities without clubbing, cyanosis, or edema. No obvious deformities. NEUROLOGICAL: Awake and alert. No obvious cranial nerve deficits. Motor grossly within normal limits. Five out of 5 muscle strength in the arms and legs. Normal speech. PSYCHIATRIC: Appropriate mood and affect; insight and judgment normal. Results - Labs CBC & Chem 7: 07/08/18 16:20 07/08/18 10:45 Labs: Laboratory Results - last 24 hr 07/08/18 07/08/18 07/08/18 10:45 10:45 10:45 WBC 6.3 RBC 4.41 L Hgb 12.7 L Hct 39.1 MCV 88.5 MCH 28.7 MCHC 32.5 RDW 15.1 Plt Count 243 MPV 9.0 Neut % (Auto) 62.5 Lymph % (Auto) 27.8 [place] % (Auto) 8.5 H Eos % (Auto) 0.4 Baso % (Auto) 0.8 Neut # (Auto) 3.9 Lymph # (Auto) 1.7 [place] # (Auto) 0.5 Eos # (Auto) 0.0 Baso # (Auto) 0.1 WBC Differential . Differential Comment Auto diff final Sodium 140 Potassium 3.9 Chloride 109 H Carbon Dioxide 21.0 Anion Gap 10 BUN 18 Creatinine 1.25 Estimated GFR 56 L Random Glucose 120 H Calcium 8.7 Total Bilirubin 0.4 AST 20 ALT 21 Alkaline Phosphatase 41 L Total Protein 7.2 Albumin 4.0 Blood Type B Positive Blood Type Recheck Not needed Antibody Screen Negative 07/08/18 16:20 WBC 7.8 RBC 3.54 L Hgb 10.5 L D Hct 31.2 L MCV 88.2 MCH 29.7 MCHC 33.7 RDW 14.9 Plt Count 192 MPV 8.5 Neut % (Auto) 69.0 Lymph % (Auto) 22.4 [place] % (Auto) 7.9 Eos % (Auto) 0.3 Baso % (Auto) 0.4 Neut # (Auto) 5.4 Lymph # (Auto) 1.7 [place] # (Auto) 0.6 Eos # (Auto) 0.0 Baso # (Auto) 0.0 WBC Differential . Differential Comment Auto diff final Sodium Potassium Chloride Carbon Dioxide Anion Gap BUN Creatinine Estimated GFR Random Glucose Calcium Total Bilirubin AST ALT Alkaline Phosphatase Total Protein Albumin Blood Type Blood Type Recheck Antibody Screen Caprini VTE Risk Assessment Caprini VTE Risk Assessment: Moderate/High Risk (score >= 2) VTE Pharmacological Exception Reason: Hemorrhage Caprini Risk Assessment Model: Point Value = 1 Point Value = 2 Point Value = 3 Point Value = 5 Age 41-60 Minor surgery BMI > 25 kg/m2 Swollen legs Varicose veins or History of unexplained or recurrent spontaneous Oral contraceptives or hormone replacement Sepsis (< 1 month) Serious lung disease, including pneumonia (< 1 month) Abnormal pulmonary function Acute myocardial infarction Congestive heart failure (< 1 month) History of inflammatory bowel disease Medical patient at bed rest Age 61-74 Arthroscopic surgery Major open surgery (> 45 min) Laparoscopic surgery (> 45 min) Malignancy Confined to bed (> 72 hours) Immobilizing plaster cast Central venous access Age >= 75 History of VTE Family history of VTE Factor V Leiden Prothrombin [id number] Lupus anticoagulant Anticardiolipin antibodies Elevated serum homocysteine Heparin-induced thrombocytopenia Other congenital or acquired thrombophilia Stroke (< 1 month) Elective arthroplasty Hip, pelvis, or leg fracture Acute spinal cord injury (< 1 month) Prophylaxis Regimen: Total Risk Factor Score Risk Level Prophylaxis Regimen 0-1 Low Early ambulation 2 Moderate Order ONE of the following: *Sequential Compression Device (SCD) *Heparin 5000 units SQ BID 3-4 Higher Order ONE of the following medications: *Heparin 5000 units SQ TID *Enoxaparin/Lovenox 40 mg SQ daily (WT < 150 kg, CrCl > 30 mL/min) *Enoxaparin/Lovenox 30 mg SQ daily (WT < 150 kg, CrCl > 10-29 mL/min) *Enoxaparin/Lovenox 30 mg SQ BID (WT < 150 kg, CrCl > 30 mL/min) AND/OR *Sequential Compression Device (SCD) 5 or more Highest Order ONE of the following medications: *Heparin 5000 units SQ TID (Preferred with Epidurals) *Enoxaparin/Lovenox 40 mg SQ daily (WT < 150 kg, CrCl > 30 mL/min) *Enoxaparin/Lovenox 30 mg SQ daily (WT < 150 kg, CrCl > 10-29 mL/min) *Enoxaparin/Lovenox 30 mg SQ BID (WT < 150 kg, CrCl > 30 mL/min) AND *Sequential Compression Device (SCD) Assessment and Plan - Assessment (1) GI (gastrointestinal bleed) Code(s): K92.2 - Gastrointestinal hemorrhage, unspecified Status: Acute (2) Hx of deep venous thrombosis Code(s): Z86.718 - Personal history of other venous thrombosis and embolism Status: Acute (3) Anticoagulated Code(s): Z79.01 - intermediate school teacher (current) use of anticoagulants Status: Acute (4) Syncope Code(s): R55 - Syncope and collapse Status: Acute - Plan 78-year-old male with history of diverticular bleed and internal hemorrhoids, was recently admitted in April for the same. At that time had mesenteric angiogram without evidence of active bleeding. Received 4 units of packed cells. He was recently diagnosed with DVT and was put on Eliquis. Presented to the emergency room complaining of bloody stools since 7 AM this morning, had approximately 3 episodes. Initial hemoglobin stable, patient had another episode in the ED and had syncopal episode. Recurrent rectal bleeding, possibly diverticular bleed, history of internal hemorrhoids exacerbated by Eliquis Recently admitted in April for diverticular bleed, had mesenteric angiogram that was negative Has had approximately 4 bloody bowel movements Initial hemoglobin 12.7, follow-up hemoglobin 10.5. -Keep n.p.o. Serial H&H Type and screen Transfuse for hemoglobin less than 8 Consult GI for evaluation Continue with IV fluids Eliquis will be put on hold Syncopal episode secondary to rectal bleeding Continue with IV fluids Continuous cardiac telemetry Follow H&H May need blood transfusion if hemoglobin less than 8 Left arm DVT, recently diagnosed 6 weeks ago, it appears that he was axillary vein. Was put on Eliquis -hold Eliquis for now History hypertension, blood pressure running 110s -Resume Norvasc, hold parameters in place Home medications reviewed, initiate as needed DVT prophylaxis SCDs GI prophylaxis, continue PPI Plan of care discussed with patient, RN and attending. Further management of this patient will be dependent on hospital course Code Status: Full code Discussed Condition With: RN, pt, attending Discharge Planning: Discharge 2-3 days (1) GI (gastrointestinal bleed) Qualifiers: GI bleed type/associated pathology: unspecified gastrointestinal hemorrhage type Qualified Code(s): K92.2 - Gastrointestinal hemorrhage, unspecified (4) Syncope Qualifiers: Syncope type: vasovagal syncope Qualified Code(s): R55 - Syncope and collapse
[2018-07-08] MEDS: Sod Chloride 0.9% Inj 1,000 ML IV.CONT SCH (18:10)
[2018-07-08] MEDS: amLODIPine 5 MG Tablet PO SCH (22:16)
[2018-07-08] MEDS: Zolpidem Tartrate 5 MG Tablet PO PRN (22:20)
[2018-07-08 23:57] LABS: Hemoglobin 9.9 gm/dL (13.0-17.0)
[2018-07-09 05:15] LABS: Hematocrit 30.5 % (39.0-51.0); Hemoglobin 9.8 gm/dL (13.0-17.0); Mean Corpuscular HGB Conc 32.2 % (32.0-36.0); Mean Corpuscular Hemoglobin 28.3 pg (27.0-34.0); Mean Corpuscular Volume 87.8 fL (80.0-100.0); Mean Platelet Volume 8.8 fL (7.0-11.0); Platelet Count 197 th/mm3 (150-450); Red Blood Count 3.47 mil/mm3 (4.50-5.90); Red Cell Distribution Width 14.8 % (11.6-17.2); White Blood Count 8.3 th/mm3 (4.0-11.0)
[2018-07-09 05:34] LABS: Calcium 7.9 mg/dL (8.5-10.1); Potassium 4.1 meq/L (3.5-5.1)
--- NOTE | 2018-07-09 08:56 | P.CONGI ---
History of Present Illness Consult date: 07/09/18 Consult reason: hematochezia Chief complaint: Lower gi bleed, anticoagulated History of Present Illness: This is a 78 yo with hx of diverticulosis inthe past. last had gi bleeding in Apr, required transfusion 4 Units of PRBC. Started to have BRBPR on Late Friday. Called the office due to rectal bleeding on fri and was advised to go to ER. He had several large bleeding episodes prior to er visit. Then no further bleeding. While getting up to go to bathroom he had another episode of painless bleeding. Overnight he had another bout of rectal bleeding. no associated No fever, no chills, no n/v, no abdominal pain. He has no factors to improve the bleeding or exacerbating the bleeding. He was recently found to have Superficial thrombosis of LUQ and was placed in eliquis. He has had large bleeding episodes such as this typically every year. Review of Systems All other systems reviewed negative except as stated in HPI PMFSH - History History Provided By: Patient - Medical History Medical History: Medical History (Last Reviewed 07/08/18 @ 18:04 by KIMBERLEE Forrester) DVT of left axillary vein, acute Diverticulitis History of GI bleed Bleeding hemorrhoid Clostridium difficile infection High cholesterol Hypertension - Surgical History Surgical History: Surgical History (Last Reviewed 07/08/18 @ 17:56 by KIMBERLEE Forrester) History of prostate surgery S/P surgery on nasal septum - Family History Family History: Family History (Last Reviewed 07/09/18 @ 08:53 by Luis Avendano MD) Mother Congestive heart failure - Social History I have reviewed the patient's Social History: Yes - Tobacco History Second Hand Smoke Exposure: No Tobacco Use In Past 30 Days: No Smoking Status: Never smoker - Alcohol History How Often Do You Have a Drink Containing Alcohol: 2 to 3 times a week - Substance Use History Substance History: No History of Abuse - Travel History Recent Travel in the [place] Within the Last 8 Weeks: No Recent Travel Out of the Country Within the Last 8 Weeks: No - Immunization History Tetanus Immunization: Unable to Assess Hx Influenza Vaccine This Season: Yes Medications and Allergies Active Medications: Active Medications Acetaminophen (Tylenol) 650 mg PO Q4H PRN PRN Reason: Temp > 100.4 Al Hydroxide/Mg Hydroxide (Milk Of Magnesia Liq) 30 ml PO Q12H PRN PRN Reason: Mild Constipation Amlodipine Besylate (Norvasc) 5 mg PO HS [facility] Last Admin: 07/08/18 22:16 Dose: Not Given Atorvastatin Calcium (Lipitor) 20 mg PO HS [facility] Last Admin: 07/08/18 22:20 Dose: 20 mg Bisacodyl (Dulcolax Supp) 10 mg RECTAL DAILY PRN PRN Reason: SEVERE CONSITIPATION Sodium Chloride (Ns Inj) 1,000 mls @ 75 mls/hr IV.CONT .[id number] [facility] Last Admin: 07/08/18 18:10 Dose: 75 mls/hr Lactulose (Lactulose Liq) 30 ml PO DAILY PRN PRN Reason: SEVERE CONSITIPATION Ondansetron HCl (Zofran Inj) 4 mg IV.PUSH Q6H PRN PRN Reason: NAUSEA OR VOMITING Pantoprazole Sodium (Protonix) 40 mg PO DAILY [facility] Sennosides (Senokot) 17.2 mg PO Q12H PRN PRN Reason: Moderate Constipation Sodium Chloride (Ns Flush) 2 ml IV.FLUSH PRN PRN PRN Reason: FLUSH AFTER USING IV ACCESS Last Admin: 07/08/18 11:10 Dose: 2 ml Sodium Chloride (Ns Flush) 2 ml IV.FLUSH BID [facility] Last Admin: 07/08/18 22:16 Dose: Not Given Sodium Chloride (Ns Flush) 2 ml IV.FLUSH PRN PRN PRN Reason: FLUSH AFTER USING IV ACCESS Zolpidem Tartrate (Ambien) 5 mg PO HS PRN PRN Reason: INSOMNIA Last Admin: 07/08/18 22:20 Dose: 5 mg Allergies Allergy/AdvReac Type Severity Reaction Status Date / Time Sulfa (Sulfonamide Allergy Unknown Unknown Verified 07/08/18 10:36 Antibiotics) Home Medications Medication Instructions Recorded Confirmed Type amlodipine 5 mg PO HS 05/04/18 07/08/18 History coQ10 (ubiquinol) 300 mg PO DAILY 05/04/18 07/08/18 History lactobacillus combination no.4 3,000 mmu cells PO DAILY 05/04/18 07/08/18 History [Probiotic] multivitamin 1 tab PO DAILY 05/04/18 07/08/18 History pantoprazole 40 mg PO DAILY 05/04/18 07/08/18 History rosuvastatin [Crestor] 10 mg PO HS 05/04/18 07/08/18 History tadalafil [Cialis] 5 mg PO DAILY 05/04/18 07/08/18 History testosterone cypionate 0.5 ml IM DIRECTED 05/04/18 07/08/18 History zolpidem [Ambien] 5 mg PO HS PRN 05/04/18 07/08/18 History apixaban [Eliquis] 5 mg PO BID 07/08/18 07/08/18 History Exam Vital signs: Vital Signs 07/08/18 09:52 07/08/18 10:32 07/08/18 10:45 Temperature 97.2 F L Pulse Rate 102 H 76 Respiratory Rate 20 16 Blood Pressure 108/63 137/86 Pulse Oximetry 97 97 100 07/08/18 15:30 07/08/18 16:20 07/08/18 17:00 Temperature Pulse Rate 71 84 74 Respiratory Rate 15 23 16 Blood Pressure 107/59 L 158/74 H 116/66 Pulse Oximetry 98 96 07/08/18 18:00 07/08/18 20:00 07/08/18 20:55 Temperature 97.9 F Pulse Rate 74 71 78 Respiratory Rate 16 20 16 Blood Pressure 134/74 150/83 H 136/69 Pulse Oximetry 97 99 07/09/18 00:32 07/09/18 04:00 07/09/18 08:00 Temperature 97.6 F 97.4 F L 97.7 F Pulse Rate 79 95 H 77 Respiratory Rate 20 20 18 Blood Pressure 136/82 118/62 113/66 Pulse Oximetry 94 L 97 98 Intake & Output 07/08/18 07/09/18 07/09/18 18:59 06:59 18:59 Intake Total 1000 / 1000 700 / 700 Balance 1000 / 1000 700 / 700 Weight 90.718 kg 90 kg Intake: IV 1000 / 1000 NS Inj 1,000 ML @ Wide Open IV. 1000 / 1000 SIG BOLUS ONE Rx#:[id number] Oral 700 / 700 Other: # Voids 1 # Bowel Movements 1 Weight On Admission 90 kg - Constitutional no acute distress - Routine HEENT Exam Head: Present: normocephalic, atraumatic Eye: Present: EOMI, PERRL, conjunctivae pink ENT: Present: mucous membranes moist, dentition normal - Routine Neck Exam Present: supple, full ROM - Routine Chest/Breast/Axilla Exam Chest wall: Absent: tenderness, mass Axillae: Absent: lymphadenopathy - Routine Respiratory Exam Present: CTA bilaterally. Absent: accessory muscle use, decreased breath sounds , respiratory distress, wheezes - Routine Cardiovascular Exam Present: RRR, S1, S2 - Routine Abdominal Exam Present: soft, normoactive bowel sounds. Absent: tenderness, distended, rebound , guarding, organomegaly - Routine Extremities Exam Present: full ROM, pulses intact. Absent: cyanosis, edema - Routine Skin Exam Present: intact. Absent: cyanosis - Routine Neurological Exam Present: alert, oriented X3, CN II-XII intact Results - Labs CBC & Chem 7: 07/09/18 03:57 07/09/18 03:37 Labs: Laboratory Results - last 24 hr 07/08/18 07/08/18 07/08/18 10:45 10:45 10:45 WBC 6.3 RBC 4.41 L Hgb 12.7 L Hct 39.1 MCV 88.5 MCH 28.7 MCHC 32.5 RDW 15.1 Plt Count 243 MPV 9.0 Neut % (Auto) 62.5 Lymph % (Auto) 27.8 [place] % (Auto) 8.5 H Eos % (Auto) 0.4 Baso % (Auto) 0.8 Neut # (Auto) 3.9 Lymph # (Auto) 1.7 [place] # (Auto) 0.5 Eos # (Auto) 0.0 Baso # (Auto) 0.1 WBC Differential . Differential Comment Auto diff final Sodium 140 Potassium 3.9 Chloride 109 H Carbon Dioxide 21.0 Anion Gap 10 BUN 18 Creatinine 1.25 Estimated GFR 56 L Random Glucose 120 H Calcium 8.7 Total Bilirubin 0.4 AST 20 ALT 21 Alkaline Phosphatase 41 L Total Protein 7.2 Albumin 4.0 Blood Type B Positive Blood Type Recheck Not needed Antibody Screen Negative 07/08/18 07/08/18 07/09/18 16:20 23:41 03:37 WBC 7.8 RBC 3.54 L Hgb 10.5 L D 9.9 L Hct 31.2 L 31.0 L MCV 88.2 MCH 29.7 MCHC 33.7 RDW 14.9 Plt Count 192 MPV 8.5 Neut % (Auto) 69.0 Lymph % (Auto) 22.4 [place] % (Auto) 7.9 Eos % (Auto) 0.3 Baso % (Auto) 0.4 Neut # (Auto) 5.4 Lymph # (Auto) 1.7 [place] # (Auto) 0.6 Eos # (Auto) 0.0 Baso # (Auto) 0.0 WBC Differential . Differential Comment Auto diff final Sodium 143 Potassium 4.1 Chloride 114 H Carbon Dioxide 23.0 Anion Gap 6 BUN 21 H Creatinine 1.14 Estimated GFR 62 L Random Glucose 112 H Calcium 7.9 L D Total Bilirubin AST ALT Alkaline Phosphatase Total Protein Albumin Blood Type Blood Type Recheck Antibody Screen 07/09/18 03:57 WBC 8.3 RBC 3.47 L Hgb 9.8 L Hct 30.5 L MCV 87.8 MCH 28.3 MCHC 32.2 RDW 14.8 Plt Count 197 MPV 8.8 Neut % (Auto) Lymph % (Auto) [place] % (Auto) Eos % (Auto) Baso % (Auto) Neut # (Auto) Lymph # (Auto) [place] # (Auto) Eos # (Auto) Baso # (Auto) WBC Differential Differential Comment Sodium Potassium Chloride Carbon Dioxide Anion Gap BUN Creatinine Estimated GFR Random Glucose Calcium Total Bilirubin AST ALT Alkaline Phosphatase Total Protein Albumin Blood Type Blood Type Recheck Antibody Screen Assessment and Plan - Plan Full GI consult dictated. IMP: 1. Hematochezia. 2. Acute blood loss anemia. 3. Hx of diverticulosis. 4. Hx of recurrent diverticular bleeding 5. Recent Left upper ext superficial vein thrombosis - 6 wks ago 6. Hx of anticoagulation with Eliquis due to above clot. - last taken Friday ( stopped due to bleeding) PLAN: 1. STAT Tagged bleeding Scan. 2. If bleeding scan is positive then recommend pt go straight to IR for angio and embol 3. If negative then plan will be for bowel preparation today in the evening and colonoscopy tomorrow. 4. Agree with holding Eliquis - due to severity of bleeding.
[2018-07-09] MEDS: Sod Chloride 0.9% Inj 1,000 ML IV.CONT SCH ×2 (12:19→21:55)
--- NOTE | 2018-07-09 12:57 | NM ---
EXAM DATE: 07/09/2018 12:53 PM EST AGE/SEX: 78 years / Male INDICATIONS: Rectal bleeding. Blood in stool. CLINICAL DATA: This is the patient's initial encounter. Patient reports that signs and symptoms have been present for 1 day and indicates a pain score of 0/10. MEDICAL/SURGICAL HISTORY: Hypertension. Gastrointestinal bleed. Prostatectomy. COMPARISON: No prior exams available for comparison. No external comparison. TECHNIQUE: Following the modified in vitro labeling of autologous red cells, dynamic continuous image s were acquired for two hours. ?? DOSE: 20.2 mCi Tc 99m Ultratag Labeled Red Blood Cells IV IMAGING TIME: 2 hr FINDINGS: Biodistribution: There is a very good labeling of red cells without significant uptake in the gastri c wall. There is good delineation of the blood pool of the spleen and abdominal vessels. Bleeding: No episodes of active GI bleeding are observed during two hours of continuous observation . CONCLUSION: No episodes of active GI bleeding observed. Electronically signed by: Gilson Adame MD Board Certified Radiologist 07/09/2018 12:56 PM EST
[2018-07-09] MEDS ORDERED: PEG 3350/E-Lyte Soln 4000 ML Bottle PO ONE (17:06)
--- NOTE | 2018-07-09 17:33 | P.PNIM ---
Subjective Interval history: Patient seen and examined after bleeding scan which was negative + abdominal pain no nausea or vomiting no fever or chil known history of diverticular bleed Physical Exam Vital signs: Vital Signs 07/08/18 18:00 07/08/18 20:00 07/08/18 20:55 Temperature 97.9 F Pulse Rate 74 71 78 Respiratory Rate 16 20 16 Blood Pressure 134/74 150/83 H 136/69 Pulse Oximetry 97 99 07/09/18 00:32 07/09/18 04:00 07/09/18 08:00 Temperature 97.6 F 97.4 F L 97.7 F Pulse Rate 79 95 H 77 Respiratory Rate 20 20 18 Blood Pressure 136/82 118/62 113/66 Pulse Oximetry 94 L 97 98 07/09/18 13:00 07/09/18 16:00 Temperature 97.7 F 98.3 F Pulse Rate 68 73 Respiratory Rate 18 18 Blood Pressure 133/72 132/67 Pulse Oximetry 96 95 Intake & Output 07/08/18 07/09/18 07/09/18 18:59 06:59 18:59 Intake Total 1000 / 1000 700 / 700 Balance 1000 / 1000 700 / 700 Weight 90.718 kg 90 kg Intake: IV 1000 / 1000 NS Inj 1,000 ML @ Wide Open IV. 1000 / 1000 SIG BOLUS ONE Rx#:[id number] Oral 700 / 700 Other: # Voids 1 # Bowel Movements 1 Weight On Admission 90 kg gen: nad cvs: s1/s2, tachycardia resp: cta gi: mild ttp, no guarding no rebound no distention and positive bowel sounds ext: no edema Results Labs CBC & Chem 7: 07/09/18 03:57 07/09/18 03:37 Imaging Imaging: Impressions GI Bleed Scan Nuclear Medicine 07/09/18 08:31 CONCLUSION: No episodes of active GI bleeding observed. Assessment and Plan (1) GI (gastrointestinal bleed): Code(s): K92.2 - Gastrointestinal hemorrhage, unspecified Status: Acute (2) Hx of deep venous thrombosis: Code(s): Z86.718 - Personal history of other venous thrombosis and embolism Status: Acute (3) Anticoagulated: Code(s): Z79.01 - terminal system operator (current) use of anticoagulants Status: Acute (4) Syncope: Code(s): R55 - Syncope and collapse Status: Acute Plan jordyn is a 78-year-old male with history of diverticular bleed and internal hemorrhoids (recently admitted in April for the same) presenting to the ED for painless BRPBR and syncopal event in setting of hypovolemia. Gastroenterology: - Recurrent rectal bleeding, possibly diverticular bleed, history of internal hemorrhoids exacerbated by Eliquis - Recently admitted in April for diverticular bleed, had mesenteric angiogram that was negative - Initial hemoglobin 12.7 currently 9.8 monitor 2 large bore 18g (pref) IV, T+S - GI consulted and recommendation appreciated Eliquis HELD Vascular: LEFT upper extremity axillary vein - repeat U/S to monitor status of DVT - hold eliquis Cardiology: History hypertension - Norvasc, hold parameters in place DVT prophylaxis SCDs GI prophylaxis, continue PPI dispo: med/surg plan discussed with patient Progress Note: Quality VTE Deep Vein Thrombosis/Pulmonary Embolism Present on Admission: No _ (1) GI (gastrointestinal bleed) Qualifiers: GI bleed type/associated pathology: unspecified gastrointestinal hemorrhage type Gastritis type: Qualified Code(s): K92.2 - Gastrointestinal hemorrhage, unspecified (2) Syncope Qualifiers: Syncope type: vasovagal syncope Encounter type: Qualified Code(s): R55 - Syncope and collapse
[2018-07-09] MEDS: amLODIPine 5 MG Tablet PO SCH (20:31)
--- NOTE | 2018-07-09 22:34 | US ---
EXAM DATE: 07/09/2018 10:24 PM EST AGE/SEX: 78 years / Male INDICATIONS: History of deep vein thrombosis in the left arm. CLINICAL DATA: This is the patient's initial encounter. Patient reports that signs and symptoms have been present for 3 weeks and indicates a pain score of 2/10. MEDICAL/SURGICAL HISTORY: Diverticulitis. Hypercholesterolemia. Hypertension. Bleeding hemor rhoid. Deep vein thrombosis of the left axillary vein. Gastrointestinal bleed. . Prostate surgery. S urgery on nasal septum. COMPARISON: No prior exams available for comparison. FINDINGS: Examination positive for nonocclusive thrombus in the left proximal to distal basilic vein . The internal jugular, subclavian, axillary, brachial and cephalic veins are patent. Other: None. CONCLUSION: 1. Nonocclusive thrombus in the left proximal to distal basilic vein. 2. Other upper left extremity deep veins are patent. Electronically signed by: Soto Cuevas MD Board Certified Radiologist 07/09/2018 10:33 PM EST
[2018-07-09] MEDS: Zolpidem Tartrate 5 MG Tablet PO PRN (22:38)
[2018-07-10 04:31] VITALS: RESP 17
--- NOTE | 2018-07-10 05:31 | ECG ---
Date Performed: 07/09/2018 Time Performed: 22:28:15 PTAGE: 78 years EKG: Sinus rhythm MARKED LEFT AXIS DEVIATION MODERATE INTRAVENTRICULAR CONDUCTION DELAY ABNORMAL ECG No significant ch dex from prior electrocardiogram. PREVIOUS TRACING : 04/16/2011 07.17 DOCTOR: Arash Sands Interpretating Date/Time 07/10/2018 05:30:32
[2018-07-10] MEDS ORDERED: Chlorhexidine Gluconate 2% 1 Pack (2 Cloths) TOPICAL ONE (07:00)
[2018-07-10] MEDS ORDERED: Sodium Chlor 0.9% Inj 500 ML IV.CONT ONE (07:00)
--- NOTE | 2018-07-10 08:25 | GIPROC ---
[facility] [address] [facility]. [facility], [address] COLONOSCOPY PROCEDURE REPORT EXAM DATE: 07/10/2018 PATIENT NAME: Jez Schwartz MR #: [id number] BIRTHDATE: 1940 ENDOSCOPIST: Luis Avendano MD ORDER #: [id number] SUPERINTENDENT AUTOMOTIVE: Nicholas Bryant and Saima Justin STATUS: inpatient INDICATIONS: The patient is a 78 yr old male here for a colonoscopy due to hematochezia PROCEDURE PERFORMED: Colonoscopy with control of bleeding MEDICATIONS: Per Anesthesia and None. PREP QUALITY: good PREP TYPE:GoLytely ESTIMATED BLOOD LOSS: None CONSENT: The patient understands the risks and benefits of the procedure and understands that these risks include, but are not limited to: sedation, allergic reaction, infection, perforation and/or bleeding. Alternative means of evaluation and treatment include, among others: physical exam, x-rays, and/or surgical intervention. The patient elects to proceed with this endoscopic procedure. medical equipment was checked for proper function. Hand hygiene and appropriate measures for infection prevention was taken. After the risks, benefits and alternatives of the procedure were thoroughly explained, Informed consent was verified, confirmed and timeout was successfully executed by the treatment team. A digital exam revealed no abnormalities of the rectum The Pentax [id number] endoscope was introduced through the anus and advanced to the cecum, which was identified by both the appendix and ileocecal valve. The instrument was then slowly withdrawn as the colon was fully examined. COLON FINDINGS: Moderate diverticulosis was noted in the sigmoid colon, descending colon, transverse colon, ascending colon, and at the cecum. More diverticulosis were noted in the right colon than left colon. A single diverticulum was found in the ascending colon with associated petechiae,erythema, and a visible vessel. The opening was large. To prevent bleeding at the site was controlled using hemoclips. The site was ligated using hemoclips. One (1) placement was made. There was no blood loss from the maneuver. The colon mucosa was otherwise normal. Retroflexed views revealed medium internal hemorrhoids The scope was then completely withdrawn from the patient and the procedure terminated. PROCEDURE WITHDRAWAL TIME:15minutes ADVERSE EVENTS: There were no complications. IMPRESSIONS: 1. Moderate diverticulosis was noted in the sigmoid colon, descending colon, transverse colon, ascending colon, and at the cecum 2. Diverticulum in the ascending colon; bleeding at the site was controlled using hemoclips; bleeding at the site was controlled using hemoclips 3. The colon mucosa was otherwise normal 4. Retroflexed views revealed medium internal hemorrhoids 5. Revealed no abnormalities of the rectum RECOMMENDATIONS: 1. High fiber diet 2. Follow up as out pt in GI office RECALL: Luis Avendano MD eSigned: Luis Avendano MD 07/10/2018 8:24 AM cc: PATIENT NAME: Jez Schwartz MR#: [id number]
--- NOTE | 2018-07-10 09:21 | P.PNGI ---
Subjective Interval history: s/p Colon imp: 1. pandiverticulosis 2. single large diverticulum with erythema and possible vessel s/p hemostatic clip placement. 3. Medium size internal hemorrhoids PLAN: 1. Diet as tolerated 2. Recommend against anticoagulation if possible 3. nonocclusive thrombus of left basilic vein per your management. ? conservative approach ? 4. No objection to discharge from GI stand point. Physical Exam Vital signs: Vital Signs 07/09/18 13:00 07/09/18 16:00 07/09/18 20:00 Temperature 97.7 F 98.3 F 97.7 F Pulse Rate 68 73 73 Respiratory Rate 18 18 18 Blood Pressure 133/72 132/67 142/82 H Pulse Oximetry 96 95 93 L 07/09/18 21:48 07/10/18 00:00 07/10/18 04:31 Temperature 98.2 F Pulse Rate 85 78 Respiratory Rate 18 17 Blood Pressure 127/69 126/70 Pulse Oximetry 94 L 96 96 Intake & Output 07/09/18 07/10/18 07/10/18 18:59 06:59 18:59 Intake Total 4850 / 4850 150 / 150 200 / 200 Balance 4850 / 4850 150 / 150 200 / 200 Weight 90 kg Intake: IV 850 / 850 150 / 150 NS Inj 1,000 ML @ 75 mls/hr IV. 850 / 850 150 / 150 CONT .[id number] SMITH Rx#:[id number] Oral 4000 / 4000 Anesthesia Amount 200 / 200 Other: # Voids 2 4 # Bowel Movements 1 4 Results - Labs CBC & Chem 7: 07/09/18 03:57 07/09/18 03:37 - Imaging Impressions Venous Doppler Study 07/09/18 00:00 CONCLUSION: 1. Nonocclusive thrombus in the left proximal to distal basilic vein. 2. Other upper left extremity deep veins are patent. GI Bleed Scan Nuclear Medicine 07/09/18 08:31 CONCLUSION: No episodes of active GI bleeding observed.
--- NOTE | 2018-07-10 10:03 | P.DS ---
DS: Providers Date of admission: 07/08/18 17:31 Primary care physician: Sussy Mary MD Consults: 07/08/18 17:34 Consult to Gastroenterology Routine Consulting Provider: ARABELLA AVENDANO Preferred Branch Manager Trainee:: Maurisio Waite Reason for Consultation: GI BLEED,POSS RECURRENT DIVERTICULAR BLEED. Notified:: Service Spoke with:: DWAIN Date Notified:: 07/08/18 Time Notified:: 17:40 Ordering Provider: AYDEN Brief History from admission: This is a 78-year-old white male with significant past medical history of diverticular bleed and internal hemorrhoids , C. difficile, hypertension, recent diagnosis of left arm DVT on Eliquis for the last 6 weeks. Patient was admitted from May 04 - May 07 for diverticular bleed, he require 4 units of packed cells. He was seen by Dr. Waite his assistant store manager sales as well as Dr. Mejia. He underwent mesenteric angiogram with no evidence of bleeding. He was discharged in stable condition and was to follow-up with GI, had an appointment for July. According to patient, approximately 6 weeks ago he noted red streaking and swelling on the left upper extremity, went to see Dr. Mary his PCP who ordered ultrasound and was found positive for DVT. He is not clear on the location of the DVT but the recommendation was for Eliquis, Dr. Mary spoke to Dr. Waite and he was started on Eliquis. According to patient, he had been doing well, was following a high-fiber diet. Today he went to the bathroom and had 2 large bloody BMs at home. After the second BM, he felt dizzy, no abdominal pain, no nausea, no vomiting. He presented to the emergency room, blood pressure was noted on the low side, 108/63 slightly tachycardic, heart rate 102. Initial hemoglobin was 12.[address] Aevndano who was covering was contacted by the emergency room physician and his recommendation was to hold Eliquis and okay to discharge patient and he can follow-up as outpatient. Prior to leaving, patient had urge to have another bowel movement and was wheeled to the bathroom where he had a syncopal episode. He was brought back to the bed where he had another large bloody bowel movement. Repeat hemoglobin was 10.5, hematocrit 31.2. At this time, patient is resting comfortably. Denies any dizziness while laying in bed, no chest pain, no shortness of breath. He did not take the Eliquis today. Believes that his last colonoscopy was in 2014. Patient is admitted for further evaluation and treatment. DS: Diagnosis Discharge Diagnosis (1) GI (gastrointestinal bleed): Status: Acute (2) Hx of deep venous thrombosis: Status: Acute (3) Anticoagulated: Status: Acute (4) Syncope: Status: Acute DS: Summary This is a 78-year-old white male with significant past medical history of diverticular bleed and internal hemorrhoids, C. difficile, hypertension, recent diagnosis of left arm DVT on Eliquis for the last 6 weeks. Patient was admitted from May 04 - May 07 for diverticular bleed, he require 4 units of packed cells. He was seen by Dr. Waite his assistant store manager sales as well as Dr. Mejia. He underwent mesenteric angiogram with no evidence of bleeding. He was discharged in stable condition and was to follow-up with GI, had an appointment for July. According to patient, approximately 6 weeks ago he noted red streaking and swelling on the left upper extremity, went to see Dr. Mary his PCP who ordered ultrasound and was found positive for DVT. He is not clear on the location of the DVT but the recommendation was for Eliquis, Dr. Mary spoke to Dr. Waite and he was started on Eliquis. According to patient, he had been doing well, was following a high-fiber diet. Today he went to the bathroom and had 2 large bloody BMs at home. After the second BM, he felt dizzy, no abdominal pain, no nausea, no vomiting. He presented to the emergency room, blood pressure was noted on the low side, 108/ 63 slightly tachycardic, heart rate 102. Initial hemoglobin was 12.[address] Avendano who was covering was contacted by the emergency room physician and his recommendation was to hold Eliquis and okay to discharge patient and he can follow-up as outpatient. Prior to leaving, patient had urge to have another bowel movement and was wheeled to the bathroom where he had a syncopal episode. He was brought back to the bed where he had another large bloody bowel movement. Repeat hemoglobin was 10.5, hematocrit 31.2. At this time, patient is resting comfortably. Denies any dizziness while laying in bed , no chest pain, no shortness of breath. He did not take the Eliquis today. Believes that his last colonoscopy was in 2014. Patient is admitted for further evaluation and treatment. Time Spent with Patient Total time spent providing and/or coordinating discharge services: > 30 min Patient is a pleasant 78 year old male who presented to [facility] for weakness in setting of lower GIB. Patient with known history of diverticular bleeding. GI consulted and patient underwent successful colonoscopy on 07/10. 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 NO active bleed was identified but area of erythema was noted which Dr. Avendano placed a clip. No other active bleed found. GI recommends that Patient can be discharged as Hgb is stable and no bleeding on evaluation. On discharge BOTH medicine and GI agree thatif he returns to the hospital for similar complaints he should have STAT CT angiogram for possible intervention urgently. Patient eliquis was DISCONTINUED as a repeat ultrasound of the LEFT upper arm no longer demonstrated an axillary deep vein thrombosis ONLY a superficial vein thrombosis of the bacillic vein. The main superficial veins of the upper extremity include the cephalic, basilic, median cubital, and accessory cephalic veins. Recommend elevation of the affected extremity with warm compression. NO blood thinner indicated for superficial thrombosis according to guidelines. Patient clinically stable for discharge with GI outpatient follow up. Office will call patient as per Dr. Avendano. Patient to follow up PMD in 7 days for CBC monitoring. return to ED if bleeding persists. Quality: VTE Deep Vein Thrombosis/Pulmonary Embolism Present on Admission: No Exam Narrative Exam Narrative: cap refill < 2 sec no tachycardia s1/s2 CTA soft, non tender, non distended, no guarding or rebound no edema Results Impressions ITS Impressions Venous Doppler Study 07/09/18 00:00 CONCLUSION: 1. Nonocclusive thrombus in the left proximal to distal basilic vein. 2. Other upper left extremity deep veins are patent. GI Bleed Scan Nuclear Medicine 07/09/18 08:31 CONCLUSION: No episodes of active GI bleeding observed. Discharge Plan Discharge Disposition Patient Disposition: Discharge Home Discharge Condition Condition: Stable Discharge Order Discharge Orders: Discharge Order (Routine); Ordered 07/10/18 Ordered By: Quinn Lutz Discharge Details Anticipated Discharge Date: 07/10/18 Discharge Comment: discharge after lunch Physicians Team ED Provider: Reyes Avila Primary Care Provider: Sussy Mary Attending Provider: Quinn uLtz Other Providers: ARABELLA AVNEDANO Rxs /Orders / Referrals /Forms Prescriptions: Continue multivitamin Tablet 1 tab PO DAILY RF: 0 amlodipine 5 mg Tablet 5 mg PO HS RF: 0 pantoprazole 40 mg Tablet,Delayed Release (Dr/Ec) 40 mg PO DAILY RF: 0 zolpidem [Ambien] 5 mg Tablet 5 mg PO HS PRN (Reason: Insomnia) RF: 0 rosuvastatin [Crestor] 10 mg Tablet 10 mg PO HS RF: 0 tadalafil [Cialis] 5 mg Tablet 5 mg PO DAILY RF: 0 coQ10 (ubiquinol) 100 mg Capsule 300 mg PO DAILY RF: 0 lactobacillus combination no.4 [Probiotic] 3 billion cell Capsule 3,000 mmu cells PO DAILY RF: 0 testosterone cypionate 200 mg/mL Kit 0.5 ml IM DIRECTED RF: 0 Discontinued apixaban [Eliquis] 5 mg Tablet 5 mg PO BID RF: 0 Referrals: Sussy Mary MD [Primary Care Provider] - 07/15/18 10:30 am (please follow up in 7 days for repeat CBC testing Doppler U/S of upper extremity showed superficial thrombosis of bacillic vein. NO other thrombi noted. Recommend holding eliquis given bleeding and superficial thrombosis. ) ARABELLA AVENDANO DR. [GASTROENTEROLOGY] - See Instructions (office will call for follow up) Discharge Instructions Patient Printed Instructions: Gastrointestinal Bleeding (GEN), Diverticulosis ( GEN) Additional Instructions: Follow-up with primary care and GI physician. Hold your blood thinner. Return if worse symtoms The main superficial veins of the upper extremity include the cephalic, basilic , median cubital, and accessory cephalic veins. WILL NOT NEED BLOOD THINNER FOR SUPERFICIAL CLOT. WARM COMPRESSION AND ELEVATION. please follow up in 7 days for repeat CBC testing with PMD Doppler U/S of upper extremity showed superficial thrombosis of bacillic vein. NO other thrombi noted. Recommend holding eliquis given bleeding and superficial thrombosis. Status ED Status: Left Department Discharge Information Discharge Date/Time: 07/10/18 14:00
[2018-07-10 13:23] VITALS: BP 134/63; PULSE 90; TEMP 97.6; O2SAT 94
== END 2018-07-10 14:00 | disposition home or self-care (01) | DRG 378 ==
LOC: NEPC 09:49 → NEDA 17:31 → N07 21:38
PROVIDERS: ADMIT Internal Medicine; ATTEND Internal Medicine
PROC: COLONOS (2018-07-10 07:31)
DX: I10 Essential (primary) hypertension; K64.8 Other hemorrhoids; D62 Acute posthemorrhagic anemia; R55 Syncope and collapse; E86.1 Hypovolemia; Z86.718 Personal history of other venous thrombosis and embolism; Z79.01 Long term (current) use of anticoagulants; R00.0 Tachycardia, unspecified; Z88.2 Allergy status to sulfonamides; I82.612 Acute embolism and thrombosis of superficial veins of left upper extremity; E78.00 Pure hypercholesterolemia, unspecified; K57.31 Diverticulosis of large intestine without perforation or abscess with bleeding
CPT/HCPCS: 78278; 80048; 80053; 85014; 85018; 85025; 85027; 86850; 86900; 86901; 90760; 93005; 93971; 96360; 99285; A9560; J7030; Q3010